=== PATIENT | female | born 1945 | race Caucasian/White ===

== ENCOUNTER 2024-11-11 11:15 | Inpatient (IN) | payer MEDICARE ==
[~2024-11-11] VITALS: Ht 167.6 cm; Wt 107.6 kg
[2024-11-11] VITALS (13 sets, daily range): BP systolic 114–150; BP diastolic 53–75; PULSE 87–96; RESP 14–24; TEMP 97.9–98.4; O2SAT 98–100
[~2024-11-11 11:15] MED LIST: AMLO10TA PO; ATOR10TA70 PO; CLOP75TA33 PO; HYDR25TA90 PO; METO-539 PO; Mucomyst PO; POTA10TA9 PO
[2024-11-11] MEDS ORDERED: OMEP40CA21 PO (11:37)
[2024-11-11] MEDS ORDERED: cefepime 2g/NS 100ml ADVANTAGE 100 ML IV STA (11:38)
[2024-11-11] MEDS: normal saline 1000ml 1,000 ML IV ONE ×3 (11:44)
[2024-11-11 11:57] LABS: BASOPHILS % (AUTO) 0.6 % (0-1); EOSINOPHILS % (AUTO) 0.1 % (0-6); LYMPHOCYTES # (AUTO) 0.7 X10'3 (1.1-4.8); LYMPHOCYTES % (AUTO) 15.5 % (21-51); MEAN PLATELET VOLUME 8.8 FL (7.4-10.4); MONOCYTES # (AUTO) 0.1 X10'3 (0-0.9); MONOCYTES % (AUTO) 1.2 % (2-12); NEUTROPHILS # (AUTO) 3.7 X10'3 (1.8-7.7); NEUTROPHILS % (AUTO) 82.6 % (42-75); PLATELET COUNT 251 X10'3 (140-440); WHITE BLOOD COUNT 4.5 X10'3 (4.5-11.0)
[2024-11-11 12:00] LABS: APTT 23 SECONDS (22-32); INR 1.1 INR; PROTHROMBIN TIME 11.2 SECONDS (9.0-12.0)
[2024-11-11 12:11] LABS: ALANINE AMINOTRANSFERASE 13 U/L (12-78); ALBUMIN 3.1 G/DL (3.4-5.0); ALBUMIN/GLOBULIN RATIO 0.6 (1.1-1.5); ALKALINE PHOSPHATASE 77 IU/L (46-116); ANION GAP 24 (8-16); ASPARTATE AMINO TRANSFERASE 32 U/L (10-37); BILIRUBIN,TOTAL 0.7 MG/DL (0.1-1.0); BLOOD UREA NITROGEN 44 MG/DL (7-18); CALCIUM 10.2 MG/DL (8.5-10.1); CHLORIDE 106 MMOL/L (99-107); CREATININE 4.42 MG/DL (0.40-0.90); GLUCOSE 134 MG/DL (70-104); MAGNESIUM 1.9 MG/DL (1.5-2.4); POTASSIUM 5.8 MMOL/L (3.5-5.1); SODIUM 138 MMOL/L (135-145); TOTAL PROTEIN 8.1 G/DL (6.4-8.2); eCRCL 10 ML/MIN; eGFR 10 ML/MIN
[2024-11-11 12:18] LABS: RED BLOOD COUNT 4.43 X10'6 (4.20-5.60)
[2024-11-11] MEDS: CEFEPIME 2gm in D5W 50mL 50 ML IV STA (12:18)
[2024-11-11 12:19] LABS: HEMATOCRIT 41.7 % (35.0-45.0); HEMOGLOBIN 13.9 g/dl (12.0-16.0); MEAN CORPUSCULAR HEMOGLOBIN 31.4 PG (27.0-31.0); MEAN CORPUSCULAR HGB CONC 33.3 g/dL (33.0-36.5); MEAN CORPUSCULAR VOLUME 94.2 FL (78-98); TOTAL CARBON DIOXIDE 8.3 MMOL/L (24-32)
[2024-11-11] MEDS: VANCOMYCIN 1.75GM/WATER FOR INJ (PEG) 350 ML IVPB IV STA (12:19)
[2024-11-11 12:20] LABS: RED CELL DISTRIBUTION WIDTH 14.3 % (11.5-14.5)
[2024-11-11 12:28] LABS: BILIRUBIN,URINE NEGATIVE (Neg); CLARITY,URINE TURBID (Clear); COLOR,URINE YELLOW (Yellow); GLUCOSE, URINE NEGATIVE (Neg); KETONES,URINE NEGATIVE (Neg); LEUKOCYTE ESTERASE ,URINE MODERATE (Neg); NITRITES, URINE NEGATIVE (Neg); OCCULT BLOOD,URINE LARGE (Neg); PROTEIN,URINE >=300 mg/dl (Neg); UROBILINOGEN,URINE 0.2 E.U/dL (0.2-1.0)
[2024-11-11 12:37] LABS: UA COLLECTION TYPE CLN CATCH MIDSTREAM
[2024-11-11 12:38] LABS: BACTERIA,URINE 2+ /HPF (Neg); MUCUS STRANDS NONE SEEN /LPF (Neg); RBC,URINE TNTC /HPF (0-2); SQUAMOUS EPITHELIAL CELL,UR NONE SEEN /LPF (FEW); WBC,URINE TNTC /HPF (0-4)
[2024-11-11] MEDS ORDERED: iohexol 300mg/ml 100ml inj. ONE (12:41)
--- NOTE | 2024-11-11 13:17 | RADIOLOGY REPORT ---
CHEST RADIOGRAPH Indication: fever Technique: Single frontal view of the chest was obtained Comparison: None FINDINGS: Lines and Tubes: None Lungs: No focal consolidation. Pleura: No effusion. No pneumothorax. Cardiomediastinal contours: Unremarkable Bones: No acute osseous abnormality. IMPRESSION: No acute cardiopulmonary disease.
--- NOTE | 2024-11-11 14:51 | ELECTROCARDIOGRAPH REPORT ---
[facility] Test Date: 2024-11-11 Test Time: 11:28:41 Pat Name: ARMAAN WILKS Department: EMERGENCY ROOM Room: [place] [address] Gender: F [employer]: : 1945 Requested By: DEPARTMENT EMERGENCY Order Number: [id number] Reading MD: Dr. Vinayak Mauro Measurements Intervals [place] Rate: 115 P: -52 NM: 151 QRS: -24 QRSD: 91 T: 230 QT: 292 QTc: 404 Interpretive Statements Sinus or ectopic atrial tachycardia Inferoposterior infarct, recent Lateral leads are also involved Electronically Signed On 11-14-2024 9:29:[address] Vinayak Mauro Please click the below link to view image of tracing.
--- NOTE | 2024-11-11 15:04 | RADIOLOGY REPORT ---
Exam: CT CT ABDOMEN PELVIS History: pain and fever Comparison Study: None available at time of dictation. TECHNIQUE: Multidetector CT of the abdomen was performed from lung bases to pubic symphysis. Imaging was performed without IV contrast. Axial, coronal and sagittal multiplanar reformats were obtained fr om the axial data set by the technologist. Radiation Dose Information: CT Dose: CTDI volume is 32.73 mGy. Dose-length product is 1827 mGy*cm FINDINGS: Evaluation of solid organs is limited due to lack of intravenous contrast use. Findings: Lung Bases: No acute or significant lung base finding. Normal heart size. No pleural or pericardial effusion. Liver: The liver is normal in size. No focal lesions. Gallbladder and Biliary Tree: Numerous small calcified gallstones Spleen: Unremarkable Pancreas: The pancreas is grossly normal in appearance. Adrenal Glands: Unremarkable Kidneys: 2.5 x 1.8 cm calcified renal calculus at the right ureteropelvic junction with numerous intr arenal calculi. Fluid in the right perirenal space the right kidney May have decompressed into the pe rirenal tissues with pyelo sinus or peripelvic extravasation. Mild right hydronephrosis. On the left there is a 3 x 2.3 cm calculus in the left renal pelvis . Mild left hydronephrosis and numerous left intrarenal calculi. Possible left ureteral calculus measuring 5-6 mm series 2, image 73. Gas noted in the collecting systems of both kidneys consistent with gas-forming infection. Bladder: Chavez catheter in the bladder with minimal residual urine air noted. Bowel: The stomach is grossly normal in appearance. Small bowel and colon are normal in caliber and d istribution. The appendix is not visualized; however, no secondary findings of acute appendicitis id entified. Ascites: Absent Lymphadenopathy: No mesenteric, retroperitoneal or periportal lymphadenopathy. Abdominal Wall and Mesentery: Unremarkable. Vasculature: The visualized abdominal aorta is normal in size and caliber. Evaluation of abdominal a nd pelvic vessels is limited due to lack of intravenous contrast. Pelvic Organs: Unremarkable Musculoskeletal: No aggressive focal bony lesions, acute fractures or dislocation. Soft tissues: Unremarkable IMPRESSION: 1. Bilateral renal calculi obstructing the ureteral pelvic junction measuring 2.5 x 1.8 cm on the rig ht 3 x 2.3 cm on the left. 2. Perirenal fluid on the right suggesting spontaneous pyelo sinus rupture and decompression of the r ight kidney. 3. Gas in the collecting system of both kidneys suggesting gas-forming bacteria. 4. Multiple bilateral intrarenal calculi. 5. On the left there is mild hydronephrosis and small amount of perirenal fluid 6. Possible mid left ureteral calculus measuring 5-6 mm. 7. Chavez catheter in the bladder. No calculi noted in the bladder. 8. Cholelithiasis Radiation optimization: All CT scans at this facility use at least one of these dose optimization shankar hniques: automated exposure control mA and/or kV adjustment per patient size (includes targeted exam s where dose is matched to clinical indication) or iterative reconstruction.
[2024-11-11] MEDS: acetaminophen 1,000mg/100ml IV 100 ML IV STA (15:07)
--- NOTE | 2024-11-11 16:38 | Physician Documentation ---
History of Present Illness ~ Chief Complaint: ALOC Stated Complaint: ALOC/JAW PAIN/VOMITING Time Seen by MD: 11:24 Primary Medical Doctor: None Mode of Arrival: Ambulatory HPI Patient was here for three days of generalized weakness. She was diffuse abdominal pain that she has been vomiting. She was a fever this morning. She was not sure how long the fever has been present. No cough or URI symptoms. Says that her urine is discolored but no dysuria. Medication Reconciliation Allergies: Coded Allergies: Penicillins (Verified Allergy, Unknown, 11/11/24) Scheduled Omeprazole (Prilosec), 1 CAP PO DAILY, (Reported) Discontinued Medications Amlodipine Besylate (Amlodipine Besylate), 1 TABLET PO DAILY, (Reported) Discontinued Reason: patient no longer taking Atorvastatin Calcium (Atorvastatin Calcium), 1 TABLET PO DAILY, (Reported) Discontinued Reason: patient no longer taking Clopidogrel Bisulfate (Clopidogrel), 75 MG PO DAILY, (Reported) Discontinued Reason: patient no longer taking Hydralazine Hcl* (Apresoline*), 50 MG PO BID, (Reported) Discontinued Reason: patient no longer taking Metoprolol Succinate* (Toprol Xl*), 0.5 TAB PO DAILY, (Reported) Discontinued Reason: patient no longer taking Potassium Citrate (Urocit-K), 1,080 MG PO DAILY, (Reported) Discontinued Reason: patient no longer taking [Mucomyst], Unknown Dose PO BID, (Reported) Discontinued Reason: patient no longer taking Past Medical History Past Surgical History: appendectomy, hysterectomy Smoking Status: Former smoker Alcohol Use: None Physical Exam Vital Signs: Temperature: 100.7, Source: Core, Heart Rate: 101, Respiratory Rate: 16, BP: 135/74, Pulse Oximetry: 97, Weight: 100.000 Oxygen Flow Rate: 0 Physical Exam General: Awake and Alert, ill-appearing HEENT: Conjunctiva pink, Sclera clear, Mucus Membranes dry Neck: Supple without masses and tenderness. Resp: Unlabored. Lungs clear to auscultation bilaterally. Heart: Tachycardic but regular Abdomen: Mild diffuse tenderness without rebound or guarding or peritoneal signs Extremities: No cyanosis,clubbing or edema. Skin: Warm and Dry. Neuro: GCS 15; no focal deficits Progress Results/Orders Results/Orders Orders - ELSI BAY MD Chest,Single View (11/11/24 11:38) Ct Abdomen Pelvis (11/11/24 13:39) * (A) Chavez- Protocol * Q12H@07,19 (11/11/24 11:55) Mixed Venous (11/11/24 ) Cult Urine + [place] Ct (11/11/24 12:38) Culture Blood (11/11/24 16:19) Lacticsepsis (11/11/24 16:19) BMP (11/11/24 16:22) Non Formulary (11/12/24 03:00) Vancomycin/Ns 1 Gm Add-[place] (Vancomyc (11/12/24 08:00) Completed Orders - ELIS BAY MD Cbc/Diff (11/11/24 11:38) CMP (11/11/24 11:38) MG (11/11/24 11:38) TSH (11/11/24 11:38) PTT (11/11/24 11:38) Pt Inr (11/11/24 11:38) Chest,Single View (11/11/24 11:38) Ct Abdomen Pelvis (11/11/24 13:39) Normal Saline 1000ml (Sodium Chloride 10 (11/11/24 11:40) Cefepime 2g/Ns 100ml Advantage (Maxipime (11/11/24 11:38) Vancomycin 1,500mg Inj. (Vancomycin 1,50 (11/11/24 20:00) Normal Saline 1000ml (Sodium Chloride 10 (11/11/24 11:40) Normal Saline 1000ml (Sodium Chloride 10 (11/11/24 11:40) Cefepime 2gm In D5w 50ml (Cefepime-D5w 2 (11/11/24 11:41) Vancomycin*Pharmacy To Dose* (Vancomycin (11/11/24 11:50) Vancomycin/H2o 1.75g/350ml Pb (Vancomyci (11/11/24 11:48) Ua W/Microscopic, Cult If Ind (11/11/24 12:16) Iohexol 300mg/Ml 100ml Inj. (Omnipaque-3 (11/11/24 12:41) Acetaminophen 1,000mg/100ml Iv (Ofirmev (11/11/24 14:55) Medications Received in ER Medications (Trade) Dose Ordered Sig/Marely Route PRN Reason Start Time Stop Time Status Last Admin Dose Admin Sodium Chloride 1,000 ml @ 1,000 mls/hr ONCE ONCE IV 11/11/24 11:40 11/11/24 12:39 DC 11/11/24 11:44 1,000 MLS/HR Sodium Chloride 1,000 ml @ 1,000 mls/hr ONCE ONCE IV 11/11/24 11:40 11/11/24 12:39 DC 11/11/24 11:44 1,000 MLS/HR Sodium Chloride 1,000 ml @ 1,000 mls/hr ONCE ONCE IV 11/11/24 11:40 11/11/24 12:39 DC 11/11/24 11:44 1,000 MLS/HR Cefepime/Dextrose 50 ml @ 100 mls/hr ONCE STAT IV 11/11/24 11:41 11/11/24 12:07 DC 11/11/24 12:18 100 MLS/HR Vancomycin HCl 350 ml @ 117 mls/hr ONCE STAT IV 11/11/24 11:48 11/11/24 14:47 DC 11/11/24 12:19 117 MLS/HR Acetaminophen 100 ml @ 400 mls/hr ONCE STAT IV 11/11/24 14:55 11/11/24 15:09 DC 11/11/24 15:07 400 MLS/HR Vital Signs 11/11/24 11/11/24 11/11/24 11/11/24 11:21 12:21 12:27 13:59 Temp 100.6 100.6 Pulse 120 105 106 98 Resp 21 22 18 16 B/P (MAP) 102/65 132/60 (84) 132/60 (84) 135/69 (91) Pulse Ox 96 98 98 97 O2 Flow Rate 0 0 0 0 11/11/24 11/11/24 15:08 15:59 Temp 101.1 100.7 Pulse 101 Resp 16 B/P (MAP) 135/74 (94) Pulse Ox 97 O2 Flow Rate 0 Laboratory Tests Test 11/11/24 11:22 11/11/24 11:34 11/11/24 11:35 11/11/24 12:16 Glucometer 142 H White Blood Count 4.5 Red Blood Count 4.43 Hemoglobin 13.9 Hematocrit 41.7 Mean Corpuscular Volume 94.2 Mean Corpuscular Hemoglobin 31.4 H Mean Corpuscular Hemoglobin Concent 33.3 Red Cell Distribution Width 14.3 Platelet Count 251 Mean Platelet Volume 8.8 Neutrophils (%) (Auto) 82.6 H Lymphocytes (%) (Auto) 15.5 L Monocytes (%) (Auto) 1.2 L Eosinophils (%) (Auto) 0.1 Basophils (%) (Auto) 0.6 Neutrophils # (Auto) 3.7 Lymphocytes # (Auto) 0.7 L Monocytes # (Auto) 0.1 Eosinophils # (Auto) 0.0 Basophils # (Auto) 0.0 CBC Comment Prothrombin Time 11.2 INR International Normalized Ratio 1.1 Activated Partial Thromboplast Time 23 Coagulation Comments Sodium Level 138 Potassium Level 5.8 H Chloride Level 106 Carbon Dioxide Level 8.3 *L Anion Gap 24 H Blood Urea Nitrogen 44 H Creatinine 4.42 H Estimated GFR/1.73 m2 10 BUN/Creatinine Ratio 10.0 Glucose Level 134 H Calcium Level 10.2 H Magnesium Level 1.9 Total Bilirubin 0.7 Aspartate Amino Transf (AST/SGOT) 32 Alanine Aminotransferase (ALT/SGPT) 13 Alkaline Phosphatase 77 Total Protein 8.1 Albumin 3.1 L Globulin 5.0 H Albumin/Globulin Ratio 0.6 L Thyroid Stimulating Hormone (TSH) 1.80 Chemistry Comments Urine Specimen Description Cln catch midstream Urine Color Yellow Urine Clarity Turbid Urine pH 6.0 Urine Specific [place] 1.020 Urine Protein >=300 H Urine Glucose (UA) Negative Urine Ketones Negative Urine Occult Blood Large H Urine Nitrite Negative Urine Bilirubin Negative Urine Urobilinogen 0.2 Urine Leukocyte Esterase Moderate H Urine RBC Tntc Urine WBC Tntc H Urine Squamous Epithelial Cells None seen Urine Transitional Epithelial Cells Urine Bacteria 2+ Urine Mucus None seen Urine Culture Indicated Indicated Volume Urine Centrifuged 10 ml Urine Comment Microbiology Date/Time Source Procedure Growth Status 11/11/24 12:38 Urine Clean Catch Midstream Urine Culture - Preliminary Culture received. Resulted Medical Decision Making Findings Patient was here for generalized weakness. On arrival she presents sepsis. I immediately ordered a septic workup including blood cultures. Cefepime vancomycin and 30 cc/kilos normal saline. He will he was given pain and nausea medicine. Chavez was placed in she had purulent urine. Her CMP shows acute kidney injury potassium was 5.8 he was told this was likely hemolysis so I ordered a repeat basic metabolic panel after her fluids were administered. CT shows bilateral obstructing stones in the proximal ureters. She actually has signs of calyceal rupture on the right. There is gas in the ureters concerning for gas-forming organism she has been covered with cefepime and vancomycin. Notified Urology immediately after receiving the results of the CT scan they are going to make arrangements for her to go to the OR emergently for stent placement. He was sent out paged to admit to the hospitalist. Departure Impression: Primary Impression: Sepsis Qualified Codes: A41.9 - Sepsis, unspecified organism Additional Impressions: Pyelonephritis Kidney stone Hydronephrosis with urinary obstruction due to renal calculus MILVIA (acute kidney injury) Hyperkalemia Condition: Stable Referrals: NO PRIMARY CARE PROVIDER (PCP) Education Educated: Patient Educated regarding: diagnosis Critical Care Note Critical Care Note This patient had a high probability of sudden, clinically significant deterioration, which required the highest level of physician preparedness to intervene urgently. The patient required and I delivered critical care from time of arrival until disposition. Critical care time was separate from procedural such as intubation or central line placement or cardioversion. Critical care included initial assessment of the seriously ill patient, initiation of diagnostic studies and treatment, management of life-threatening and/or end organ supporting interventions that required frequent physician assessment, and phone consultation with other providers as outlined in the progress notes. Spent with family or surrogates is included only if the patient was not capable of providing the necessary information or participating in medical decision-making. Total critical care time: 70 minutes Signature Scribe Signature: no scribe Attestation: no shravanibe ELIS BAY MD Nov 11, 2024 16:38
[2024-11-11] MEDS: ringers solution, lacted 1,000 ML IV SCH ×3 (16:45→17:04)
[2024-11-11] MEDS ORDERED: magnesium hydroxide 30ml (MOM) UD suspension PO PRN (16:50)
[2024-11-11] MEDS ORDERED: mag hydrox/Alum hydrox/simeth 30ml oral suspension PO PRN (16:50)
[2024-11-11] MEDS ORDERED: potassium Cl 20 mEq SR tablet PO PRN ×2 (16:50)
[2024-11-11] MEDS ORDERED: magnesium sulf-water 2g/50mL 50 ML IV PRN (16:50)
[2024-11-11] MEDS ORDERED: potassium Cl 40MEQ/1/2NS 520ml 520 ML IV PRN (16:50)
[2024-11-11] MEDS ORDERED: magnesium sulf-water 4G/100mL 100 ML IV PRN (16:50)
[2024-11-11] MEDS ORDERED: acetaminophen 325mg tablet PO PRN (16:50)
[2024-11-11 16:59] LABS: ALBUMIN 2.5 G/DL (3.4-5.0); ANION GAP 18 (8-16); BLOOD UREA NITROGEN 43 MG/DL (7-18); BUN/CREATININE RATIO 10.6 (10.0-20.0); CALCIUM 8.9 MG/DL (8.5-10.1); CHLORIDE 110 MMOL/L (99-107); CREATININE 4.07 MG/DL (0.40-0.90); GLUCOSE 90 MG/DL (70-104); POTASSIUM 3.9 MMOL/L (3.5-5.1); SODIUM 142 MMOL/L (135-145); eCRCL 11 ML/MIN; eGFR 11 ML/MIN
[2024-11-11 17:03] LABS: TOTAL CARBON DIOXIDE 14.4 MMOL/L (24-32)
[2024-11-11] MEDS ORDERED: iohexol 300 MG/1 ML 50ml polymer ONE (17:17)
--- NOTE | 2024-11-11 17:23 | HISTORY AND PHYSICAL ---
History & Physical Providers to ~ History of Present Illness Reason for Admit\Complaint: sepsis, pyelonephritis, nephrolithiasis, MILVIA History of Present Illness Neela Talbot is a 79-year-old female with a past medical history significant for nephrolithiasis and subsequent pyelonephritis, s/p ureteral stent in 2013, mi s/p cardiac stent in 2014, trigeminal neuralgia who was brought to the ED with chief complaints of acute onset generalized weakness, decreased appetite, nausea, and vomiting x 1 day. Patient denies CVA, cardiac arrhythmia, DVT/PE, or GIB. Patient denies pain with urination, urinary frequency/urgency, chest pain, palpitations, shortness of breath, abdominal pain, diarrhea. Patient was examined in the presence of her daughter. Per daughter, patient developed left- sided facial droop 4 days ago which has happened to patient in the past but developed again. Initial diagnostic findings were notable for elevated lactic acid, metabolic acidosis, abnormal renal function, urinalysis indicating urinary tract infection, CT indicating nephrolithiasis in right and left ureter and pyelonephritis. On-call urologist Dr. Vee was consulted. Patient is to be taken to OR for bilateral ureteral stent placement. Allergies: Coded Allergies: Penicillins (Verified Allergy, Unknown, 11/12/24) TOLERATED CEFEPIME 10/2024 Home Medications Home Medications Active Reported Prilosec (Omeprazole) 40 Mg Capsule 1 Cap PO DAILY 30 Days Past Medical History Past Medical History Pyelonephritis Nephrolithiasis Trigeminal neuralgia Past Surgical History Surgical History Comment s/p ureteral stent [place] s/p cardiac stent Past Social History Social History Comment Alcohol: Denies Tobacco: Denies Illicit drug use: Denies Living situation: Lives at home with family ROS ROS Other than positives in HPI, all 14 review of systems are negative Exam Vitals: Vital Signs Date Time Temp Pulse Resp B/P (MAP) Pulse Ox O2 Delivery O2 Flow Rate FiO2 11/11/24 16:53 100.1 99 16 137/70 (92) 97 0 General: Generalized weakness, A&Ox 3, NAD HEENT: Normocephalic, PERRLA Neck: Supple, trachea midline, no JVD Chest: Clear to auscultation bilaterally Cardiovascular: RRR, S1&S2 Abdomen: Soft, tender to palpation in left and right lower quadrant abdomen; negative rebound tenderness Extremities: No cyanosis/clubbing/or edema Central Nervous System: Left-sided facial droop Musculoskeletal: No paraspinal muscle tenderness, no muscle spasm Skin: Warm and intact Diagnostic Data Last Recorded Lab Results: 11/11/24 1135 11/11/24 1641 Diagnostic Data: Laboratory Tests Test 11/11/24 11:35 Prothrombin Time 11.2 SECONDS (9.0-12.0) INR International Normalized Ratio 1.1 INR Activated Partial Thromboplast Time 23 SECONDS (22-32) Coagulation Comments Additional Plan # Acute pyelonephritis 2/2 hydronephrosis 2/2 nephrolithiasis # Severe sepsis 2/2 pyelonephritis # Metabolic acidosis, AGMA # Lactic acidosis # Postrenal MILVIA 2/2 nephrolithiasis # UTI # Hyperkalemia 2/2 MILVIA # NSTEMI -CT positive b/l nephrolithiasis, hydronephrosis, pyelonephritis, bicarb 8.3, pH 7.2, lactic acid 10-2.5, AG 24, sinus tachy, fever, procal 63, UA UTI +, Cr 4.42 GFR 10, with BUN/Cr 10 likely prolonged damage, no known hx CKD -3L bolus fluid resuscitation given & continuous LR; vancomycin, cefepime, prn acetaminophen, prn metoprolol for HR>120 given severe sepsis -repeat lactic acid, follow blood/urine culture, urine lytes -OR for b/l ureteral stent by Dr. Vee today; consulted ID Dr. Yeager, suzie w/treatment plan # NSTEMI # [place] s/p cardiac stent (2013, Dr. Friend) -has not been taking statin, only on aspirin at home -follow troponins, Lexiscan based on trop trend, heparin as indicated # Hx Trigeminal neuralgia # CVA - to rule out -new onset left-sided facial droop and jaw pain x 4days -CT head negative, start aspirin, statin, follow MRI, Teleneurology consult DVT/VTE prophylaxis: heparin Code status: Full code I spent a total of 35 minutes discussing Advanced Care Planning measures with the patient. Advance care planning: Discussed with patient the importance of advance care planning in case of emergent situation. We discussed various resuscitative measures/ ACP with the patient at the time of admission. Patient voiced understanding and patient has decided on a full code status. Date of Service: Nov 11, 2024 Billing Provider: MARIE SUH Common Visit Codes: 31213-[id number] INP/OBS CARE (HIGH) Secondary Visit Codes: 17181-[id number] CARE PLAN 30 MINUTES MARIE SUH Nov 11, 2024 17:22
--- NOTE | 2024-11-11 17:28 | CONSULTATION REPORT ---
Consult Providers to CC ~ History of Present Illness Reason for Admit\Complaint: Abdominal pain History of Present Illness Patient presented to the emergency department with significant fevers and generally not feeling well. She had a CT scan which showed bilateral obstructing ureteral stone. She had urine consistent with infection, elevated creatinine, and significant stone burden in atrophic kidneys bilaterally. Patient is also tachycardic. Patient has a history of kidney stones and previously has had stones treated, but it has been close to ten years. Allergies: Coded Allergies: Penicillins (Verified Allergy, Unknown, 11/11/24) Home Medications Home Medications Active Reported Prilosec (Omeprazole) 40 Mg Capsule 1 Cap PO DAILY 30 Days ROS ROS A pertinent 10 point review of systems was performed and was normal except as otherwise noted. Please also see HPI for added review of systems. Exam Vitals: Vital Signs Date Time Temp Pulse Resp B/P (MAP) Pulse Ox O2 Delivery O2 Flow Rate FiO2 11/11/24 16:53 100.1 99 16 137/70 (92) 97 0 General: General: Awake and Alert, no acute distress. Febrile HEENT: HEENT: Conjunctiva pink, Sclera clear, Mucus Membranes moist. Neck: Neck: Supple without masses and tenderness. Chest: Resp: Unlabored. Cardiovascular: Heart: Tachycardic Abdomen: Abdomen: Soft and non tender no organomegaly Extremities: Extremities: No cyanosis,clubbing or edema. Skin: Skin: Warm and Dry. Diagnostic Data Last Recorded Lab Results: 11/11/24 1135 11/11/24 1641 Diagnostic Data: Laboratory Tests Test 11/11/24 11:35 Prothrombin Time 11.2 SECONDS (9.0-12.0) INR International Normalized Ratio 1.1 INR Activated Partial Thromboplast Time 23 SECONDS (22-32) Coagulation Comments Problems: (1) Hydronephrosis with urinary obstruction due to renal calculus Status: Chronic Assessment & Plan: Bilateral obstructing kidney stones in the setting of infection. She also has significant gas in the collecting system on both sides. I would recommend emergent decompression with bilateral stent placement. I discussed this in detail with the patient. We discussed cystoscopy, bilateral retrograde pyelograms, bilateral ureteral stent placement. We discussed risks of the procedure including infection, bleeding, damage to surrounding tissues, need for further interventions. We discussed benefits including allowing for decompression of the kidneys, clearance of infection. We discussed alternatives including observation and supportive care, as well as nephrostomy tubes. After discussion patient consented to move forward with the procedure. - OR today for cystoscopy, bilateral retrograde pyelograms, bilateral ureteral stent placement MARIO DOE MD Nov 11, 2024 17:28
[2024-11-11] MEDS ORDERED: acetaminophen 1,000mg/100ml IV 100 ML IV PRN ×2 (17:30→17:55)
[2024-11-11] MEDS ORDERED: metoprolol tartrate 1mg/ml inj IV PRN (17:40)
[2024-11-11] MEDS ORDERED: HYDROmorphone/PF 0.2 MG/ML SYRINGE IV PRN ×2 (17:55)
[2024-11-11] MEDS ORDERED: labetalol 20mg/4ml (5mg/ml) syringe IV PRN (17:55)
[2024-11-11] MEDS ORDERED: morphine 2 MG/ML inj. syringe IV PRN (17:55)
[2024-11-11] MEDS ORDERED: ringers solution, lacted 1,000 ML IV SCH (17:55)
[2024-11-11] MEDS ORDERED: ondansetron/PF 4mg/2ml inj IV PRN (17:55)
[2024-11-11] MEDS ORDERED: morphine 4 MG/ML inj SYRINge IV PRN (17:55)
[2024-11-11] MEDS ORDERED: sevoflurane 250ml liquid IH ONE (17:56)
--- NOTE | 2024-11-11 17:58 | RADIOLOGY REPORT ---
EXAM: CT CT HEAD INDICATION: facial droop TECHNIQUE: CT of the head without intravenous contrast. Radiation Dose Information: CT Dose: CTDI volume is 69.89 mGy. Dose-length product is 1178.19 mGy*cm The dose indicators for CT are the volume Computed Tomography (CT) Dose Index (CTDIvol) and the Dose Length Product (DLP), and are measured in units of mGy and mGy-cm, respectively. These indicators are not patient dose, but values generated from the CT scanner acquisition factors. The report includes radiation exposure data for exposures received during this examination. COMPARISON: None FINDINGS: There is no evidence of acute intracranial hemorrhage, extra-axial collection, mass effect, midline s hift, herniation or hydrocephalus. The ventricles, sulci and cisterns are age appropriate. The barone-white differentiation is intact. Patchy periventricular and subcortical white matter hypoattenuation is nonspecific but may be related to small vessel ischemic disease. The visualized paranasal sinuses and mastoid air cells are clear. The surrounding soft tissues and osseous structures are unremarkable. IMPRESSION: 1. No acute intracranial abnormality.. 2. No acute intracranial hemorrhage. 3. No CT findings of territorial ischemia
[2024-11-11] MEDS ORDERED: fentaNYL/PF 50MCG/1 ML 2ML syringe ONE (18:03)
[2024-11-11] MEDS ORDERED: midazolam 1 mg/ML 2ml injection ONE (18:03)
[2024-11-11] MEDS: iohexol 300 MG/1 ML 50ml polymer IV ONE (18:10)
[2024-11-11] MEDS ORDERED: dexamethasone sod phosphate 4mg/ml inj. ONE (18:22)
[2024-11-11] MEDS ORDERED: propofol inj 20 ML IV ONE (18:22)
[2024-11-11] MEDS ORDERED: phenylephrine 10mg/ml inj. ONE (18:26)
[2024-11-11] MEDS ORDERED: ondansetron/PF 4mg/2ml inj ONE (18:27)
--- NOTE | 2024-11-11 18:51 | OPERATIVE REPORT ---
Operative Report Providers to ~ Date of Procedure: Nov 11, 2024 Pre-Operative Diagnosis: Acute pyelonephritis, nephrolithiasis Post-Operative Diagnosis SAME as PRE-Op Procedure Performed Cystoscopy, bilateral retrograde pyelograms, bilateral ureteral stent placement. Surgeon: MD Nanda Freezer Machine Operator None Anesthesiologist: Ben Moore Type of Anesthesia: General Findings: Significant bilateral stone burden with very large hydronephrosis on both sides. Far widened calyces with what can only be from thinned paranchyma. Complications None Prosthetics\Implants used: Bilateral 6 x 24 double J ureteral stents Estimated Blood Loss: Minimal Specimen Removed: None Description of Procedure: Patient was brought to the operating room, given a general anesthetic, and placed in dorsal lithotomy position. She was prepped and draped in the normal sterile fashion. A timeout was performed. A 22 azerbaijani cystoscope was inserted via urethra. A 5 azerbaijani open ended catheter was passed into the right ureter. Retrograde pyelogram was then performed. This showed significant stone burden and significant hydronephrosis which was chronic in nature based on this retrograde. I passed a wire up into the kidney and passed a 6 x 24 double J ureteral stent over the wire into the right kidney. The wire was removed and good coil was seen on the proximal portion on spot fluoroscopy. Good coil was seen on the distal portion on direct visualization. There was significant drainage of pus from the right kidney at this point. I next turned my attention to the left ureter. A 5 azerbaijani open ended catheter was passed into the ureter and a retrograde pyelogram was performed. There was a very large stone in the UPJ. Significant hydronephrosis came from behind the stone. Chronic appearing in nature. I was able to pass a wire into the kidney but it was significantly difficult to do so. Once the wire was maneuvered past the stone I was able to pass a 6 x 24 double J ureteral stent over the wire into the left kidney. The wire was removed and there was good coil on the proximal portion on spot imaging and good coil on direct visualization of the distal end. There was again copious drainage of pus filled urine. After this a stanley catheter was placed for maximal drainage. This murillo the end of the procedure. MARIO DOE MD Nov 11, 2024 18:50
[2024-11-11] MEDS ORDERED: VANCOMYCIN 1,500MG inj. 1,500 MG in normal saline 500ml IV soln 300 ML IV SCH (20:00)
[2024-11-11] MEDS: K and/or MAG REPLACEMENT MC SCH (20:00)
[2024-11-11] MEDS: atorvastatin 20mg tablet PO SCH (20:43)
[2024-11-11] MEDS: heparin, porcine 5000 units/ml vial SQ SCH (20:43)
[2024-11-11] MEDS: docusate sod 100mg capsule PO SCH (20:43)
[2024-11-11] MEDS: CEFEPIME 2gm in D5W 50mL 50 ML IV SCH (20:44)
[2024-11-11] MEDS: morphine 2 MG/ML inj. syringe IV ONE (22:27)
[2024-11-11] MEDS: aspirin 81mg, enteric-coated 1 TAB TABLET.DR PO ONE (23:15)
[2024-11-12] VITALS (16 sets, daily range): BP systolic 120–172; BP diastolic 51–91; PULSE 79–107; RESP 16–20; TEMP 97.5–98.6; O2SAT 93–99
[2024-11-12] MEDS: VANCOMYCIN LEVEL IV SCH (03:00)
[2024-11-12] MEDS: heparin, porcine 5000 units/ml vial SQ SCH (04:29)
[2024-11-12 06:56] LABS: BASOPHILS % (AUTO) 0 % (0-1); EOSINOPHILS % (AUTO) 0 % (0-6); HEMATOCRIT 35.2 % (35.0-45.0); HEMOGLOBIN 11.1 g/dl (12.0-16.0); LYMPHOCYTES # (AUTO) 1.3 X10'3 (1.1-4.8); LYMPHOCYTES % (AUTO) 4.4 % (21-51); MEAN CORPUSCULAR HEMOGLOBIN 30.8 PG (27.0-31.0); MEAN CORPUSCULAR HGB CONC 31.7 g/dL (33.0-36.5); MEAN CORPUSCULAR VOLUME 97.4 FL (78-98); MEAN PLATELET VOLUME 9.4 FL (7.4-10.4); MONOCYTES # (AUTO) 1.3 X10'3 (0-0.9); MONOCYTES % (AUTO) 4.5 % (2-12); NEUTROPHILS # (AUTO) 26.2 X10'3 (1.8-7.7); NEUTROPHILS % (AUTO) 91.1 % (42-75); PLATELET COUNT 167 X10'3 (140-440); RED BLOOD COUNT 3.61 X10'6 (4.20-5.60); RED CELL DISTRIBUTION WIDTH 15.5 % (11.5-14.5)
[2024-11-12 07:03] LABS: WHITE BLOOD COUNT 28.7 X10'3 (4.5-11.0)
[2024-11-12] MEDS ORDERED: aminophylline 500mg/20ml vial IV PRN (07:55)
[2024-11-12] MEDS ORDERED: nitroGLYCERIN 0.4mg SUBLingual tab SL PRN ×2 (07:55→14:15)
[2024-11-12] MEDS ORDERED: metoprolol tartrate 1mg/ml inj IV PRN (07:55)
[2024-11-12 07:56] LABS: ALANINE AMINOTRANSFERASE 15 U/L (12-78); ALBUMIN 2.5 G/DL (3.4-5.0); ALBUMIN/GLOBULIN RATIO 0.6 (1.1-1.5); ALKALINE PHOSPHATASE 49 IU/L (46-116); ANION GAP 15 (8-16); ASPARTATE AMINO TRANSFERASE 26 U/L (10-37); BILIRUBIN,TOTAL 0.5 MG/DL (0.1-1.0); BLOOD UREA NITROGEN 48 MG/DL (7-18); BUN/CREATININE RATIO 13.2 (10.0-20.0); CALCIUM 9.3 MG/DL (8.5-10.1); CHLORIDE 110 MMOL/L (99-107); CHOLESTEROL 151 MG/DL (0-200); CREATININE 3.64 MG/DL (0.40-0.90); GLUCOSE 110 MG/DL (70-104); LDL CHOLESTEROL 58 MG/DL (50-100); MAGNESIUM 1.7 MG/DL (1.5-2.4); POTASSIUM 5.8 MMOL/L (3.5-5.1); SODIUM 140 MMOL/L (135-145); TOTAL CARBON DIOXIDE 15.1 MMOL/L (24-32); TOTAL PROTEIN 6.8 G/DL (6.4-8.2); TRIGLYCERIDES 233 MG/DL (20-135); VANCOMYCIN,RANDOM 19.2 ug/mL (20.0-30.0); eCRCL 12 ML/MIN; eGFR 12 ML/MIN
[2024-11-12 07:59] LABS: HEMOGLOBIN A1C 5.7 % (4.5-6.2)
[2024-11-12] MEDS ORDERED: vancomycin/NS 1 GM ADD-VANTAGE 250 ML X 1 DOSE IV PRN (08:00)
[2024-11-12 08:15] LABS: TOTAL CELLS COUNTED 100
[2024-11-12 08:16] LABS: PLATELET ESTIMATE NORMAL
[2024-11-12 08:17] LABS: CHOL/HDL RATIO 3.4 (0.00-4.99); HDL CHOLESTEROL 45 MG/DL (35-60)
[2024-11-12] MEDS: aspirin 81mg, enteric-coated 1 TAB TABLET.DR PO SCH (09:44)
[2024-11-12] MEDS: gabapentin 100mg capsule PO SCH (09:53)
--- NOTE | 2024-11-12 10:31 | PROGRESS NOTE ---
Daily Progress Note Providers to CC ~ Antibiotic Timeout Antibiotic Ordered?: Yes Subjective No acute events overnight. Patient examined at bedside. No new complaints, not in acute distress. Patient denies chest pain, sob, palpitations, abdominal pain, n/v/d. Labs notable for uptrending troponins overnight, uptrending procal, normalized lactic acid, white count at 28, improving renal function but severely compromise. Uptrending trops, consulted Dr. Friend, Lexiscan positive, heparin drip started, prn nitroglycerin, continued on high-intensity statin, aspirin, metoprolol, prn nitroglycerin. Continued on empirical antibiotics and LR. Consulted food and beverage server Dr. Funk. Objective Vital Signs Date Time Temp Pulse Resp B/P (MAP) Pulse Ox O2 Delivery O2 Flow Rate FiO2 11/12/24 06:55 Room Air 99 11/12/24 06:55 99 0 11/12/24 06:00 86 11/12/24 04:00 98.2 16 127/51 (76) Result Diagram: 11/12/24 0551 11/12/24 0551 Physical Exam General: Generalized weakness, A&Ox 3, NAD HEENT: Normocephalic, PERRLA Neck: Supple, trachea midline, no JVD Chest: Clear to auscultation bilaterally Cardiovascular: RRR, S1&S2 Abdomen: Soft, tender to palpation in left and right lower quadrant abdomen; negative rebound tenderness Extremities: No cyanosis/clubbing/or edema Central Nervous System: Left-sided facial droop Musculoskeletal: No paraspinal muscle tenderness, no muscle spasm Skin: Warm and intact Coagulation Studies Laboratory Tests Test 11/11/24 11:35 Prothrombin Time 11.2 SECONDS (9.0-12.0) INR International Normalized Ratio 1.1 INR Activated Partial Thromboplast Time 23 SECONDS (22-32) Coagulation Comments Problem\Assessment\Plan # Acute pyelonephritis 2/2 hydronephrosis 2/2 nephrolithiasis # Severe sepsis 2/2 pyelonephritis # Metabolic acidosis, AGMA # Lactic acidosis # Postrenal MILVIA 2/2 nephrolithiasis # UTI # Hyperkalemia 2/2 MILVIA # NSTEMI -CT positive b/l nephrolithiasis, hydronephrosis, pyelonephritis, bicarb 8.3, pH 7.2, lactic acid 10-2.5, AG 24, sinus tachy, fever, procal 63, UA UTI +, Cr 4.42 GFR 10, with BUN/Cr 10 likely prolonged damage, no known hx CKD -3L bolus fluid resuscitation given & continuous LR; vancomycin, cefepime, prn acetaminophen, prn metoprolol for HR>120 given severe sepsis -repeat lactic acid, follow blood/urine culture, urine lytes -OR for b/l ureteral stent by Dr. Vee today; consulted ID Dr. Yeager, agrees w/treatment plan -11/12: troponins overnight uptrending, renal function improving but severely compromised; consulted on-call Dr. Sparkle Patiño as her insurance counselor not available in town today. Consulted food and beverage server Dr. Funk. # NSTEMI # [place] s/p cardiac stent (2013, Dr. Friend) -has not been taking statin, only on aspirin at home -follow troponins, Lexiscan based on trop trend, heparin as indicated -11/12: uptrending trops, consulted Dr. Friend, Lexiscan positive, heparin drip started, prn nitroglycerin, continued on high-intensity statin, aspirin, metoprolol # Hx Trigeminal neuralgia # CVA - cannot exclude -new onset left-sided facial droop x 4days -CT head negative, start aspirin, statin, follow MRI, Teleneurology consult -11/12: MRI head/neck cannot be done for next 14 days due to b/l ureteral stent placement, will start cardiac heparin drip WO bolus DVT/VTE prophylaxis: heparin Code status: Full code Date of Service: Nov 12, 2024 Billing Provider: MARIE SUH Common Visit Codes: [id number] INP/OBS CARE(HIGH) MARIE SUH Nov 12, 2024 10:31
--- NOTE | 2024-11-12 11:11 | CONSULTATION REPORT - RESIDENT ---
Consult Providers to CC Resident Creating Document: LIZZ MARCUMAMALIA History of Present Illness Reason for Admit\Complaint: Elevated troponins History of Present Illness A 79-year-old female with past medical history of CAD s/p stenting in 2013 was admitted into the hospital for the management of sepsis secondary to pyelonephritis and she underwent cystoscopy with bilateral ureteral stent placement by Dr. Vee yesterday. Cardiology consulted because of history of jaw pain with mildly elevated and up trending troponins. The patient started to have ?trigeminal neuralgia since the past one week and she reports that the jaw pain is secondary to neuralgia. She denies chest pain, pressure, palpitations, shortness of breath. She uses a walker to ambulate and walks around in her house. Reports no exertional dyspnea. She initially followed up with Dr. Gayle after stent placement but lost follow up. She also does not have a primary care physician currently. Home medications are notable for aspirin. Allergies: Coded Allergies: Penicillins (Verified Allergy, Unknown, 11/12/24) TOLERATED CEFEPIME 10/2024 Home Medications Home Medications Active Reported Prilosec (Omeprazole) 40 Mg Capsule 1 Cap PO DAILY 30 Days Past Medical History Past Medical History CAD s/p stenting Pyelonephritis, nephrolithiasis s/p bilateral ureteral stenting Past Surgical History Surgical History Comment Bilateral ureteral stent placement Past Social History Social History Comment Denies alcohol, smoking, illicit drug abuse. Reported smoking and drinking when she was very young. Does not have a PCP. Lives at home. ROS ROS Reviewed and negative except for pertinent positives in HPI. Exam Vitals: Vital Signs Date Time Temp Pulse Resp B/P (MAP) Pulse Ox O2 Delivery O2 Flow Rate FiO2 11/12/24 06:55 Room Air 99 11/12/24 06:55 99 0 11/12/24 06:00 86 11/12/24 04:00 98.2 16 127/51 (76) General: Elderly female, alert and oriented x4, not in acute distress Head: Normocephalic with an atraumatic Eyes: Pupils- 3mm, reacting to light, conjunctiva- anicteric Nose and throat: No polyps, septum- normal, no mucosal ulcers Neck: Supple, no lymphadenopathy, no carotid bruit Respiratory: No use of accessory muscles of respiration, Bilateral normal vesiscular breath sounds heard. No wheeze, rhochi or creps Cardiac: S1-S2 heard, rhythm regular, no gallop/murmur Abdomen: non distended, no tenderness, no organomegaly, bowel sounds - heard Extremities: no clubbing, no pedal edema, no deformities, peripheral pulses - 2+ Skin: warm and dry, no rash, no purpura Neuro: No focal deficit, gross cranial nerve exam - normal Diagnostic Data Last Recorded Lab Results: 11/12/24 0551 11/12/24 0551 Diagnostic Data: Laboratory Tests Test 11/11/24 11:35 Prothrombin Time 11.2 SECONDS (9.0-12.0) INR International Normalized Ratio 1.1 INR Activated Partial Thromboplast Time 23 SECONDS (22-32) Coagulation Comments Additional Plan Elevated troponins likely secondary to type 2 [place] The patient does not have angina, palpitations or shortness of breath. The jaw pain is likely secondary to trigeminal neuralgia. Further workup for trigeminal neuralgia recommended. MRI pending. Cardiac stress test showed small reversible defect in the distal anterolateral wall and large fixed defect in the basal to mid inferolateral wall. Agree with heparin drip. Continue daily aspirin 81 mg, atorvastatin 40 mg daily. Initiate metoprolol succinate 25 mg daily and up titrate as tolerated. Follow up with the echocardiogram to look for wall motion abnormalities. Risks and benefits discussed with the patient and she is not a good candidate for cardiac catheterization at this time considering the renal function. It is recommended that the patient establishes care with a primary care physician for monitoring of kidney function. History of cardiac stenting in 2013 to mid CX/OM Recommended follow up in outpatient setting. Sepsis Pyelonephritis Bilateral ureteral stenting MILVIA vs CKD Rule out CVA Continue management as per urologist and hospitalist. Lizz Marcum MD Internal Medicine Resident, PGY-1 Patient seen and examined by Dr. GARCIA. Echocardiogram from 11/12/2024 reviewed. Ejection fraction 70%, moderate MR, mild TR, PA systolic pressure of 57 mm of mercury. Continue medical therapy. Sepsis Screening Reassessment Date: Nov 13, 2024 Date of Service: Nov 12, 2024 Billing Provider: ZACHARY GAYLE MD, SOWMYA MANJARI, AMALIA Nov 12, 2024 11:11 ZACHARY GAYLE MD Nov 13, 2024 18:28
[2024-11-12] MEDS: PERFLUTREN PROTEIN-A MICROSPHR (Optison) 0.22 MG/ML 3ML VIAL IV ONE (11:35)
[2024-11-12] MEDS: regadenoson 0.4mg/5ml syringe IV PRN (12:06)
--- NOTE | 2024-11-12 13:30 | RADIOLOGY REPORT ---
EXAM: NM NM FREDERICK SCAN History: nstemi Comparison Study: None available TECHNIQUE: Resting myocardial perfusion imaging was performed approximately 30 minutes following the injection of 8.12 mCi of Tc-99m sestamibi. Peak pharmacologic stress, the patient was injected with 3 2.78 mCi of Tc-99m sestamibi. Gated post stress images were acquired in the supine and prone position s approximately 30 minutes after stress and left ventricular ejection fraction (LVEF) was calculated. Findings: The overall quality of the study is adequate. The left ventricular cavity is noted to be enlarged. There is no evidence of abnormal lung activity. Additionally, the right ventricle appears normal. Myocardial perfusion images demonstrate a large size, severe intensity perfusion defect in the basal to mid inferolateral wall, which is fixed. Additional small size, moderate intensity perfusion defect in the distal anterolateral wall which is reversible. Gated imaging reveals focally hypokinetic wall motion with a calculated decreased LVEF of 36 % with e nd-diastolic volume of 141 mL at stress. Impression: 1. Small size, moderate intensity perfusion defect in the distal anterolateral wall which is reversib le favored ischemic. 2. Large size, severe intensity perfusion defect in the basal to mid inferolateral wall which is fixe d favored infarct. 3. Overall gated left ventricular systolic function was focally hypokinetic with calculated decreased LVEF of 36 % at stress. 4. Left ventricular enlargement.
--- NOTE | 2024-11-12 13:33 | RADIOLOGY REPORT ---
C-ARM FLUOROSCOPY: PROCEDURE: Stone removal and stent placement FLUOROSCOPY TIME: 45.8 seconds DAP: 21.1 mgy FINDINGS: Spot intraoperative C arm radiographs demonstrating retrograde pyelography and stent placement and st one removal. IMPRESSION: Please refer to surgical report for detailed findings.
[2024-11-12] MEDS: HEPARIN DRIP-CARDIAC**PHARMACIST-TO-DOSE IV ONE (14:10)
--- NOTE | 2024-11-12 14:20 | CONSULTATION REPORT - RESIDENT ---
Consult Providers to CC Resident Creating Document: MARGYOTTO AMALIA RODRIGUEZ History of Present Illness Reason for Admit\Complaint: Sepsis 2/2 pyeonephritis, b/l Nephrolithiasis, MILVIA History of Present Illness Nephrology has been consulted in view of the patient's MILVIA. 79-year-old female with past medical history of nephrolithiasis s/p right unilateral stent in 2013, coronary artery disease presented to the ED with a chief complaint of generalized weakness, decreased appetite, nausea and vomiting X 1 day prior to her admission. She also complained of neuropathy in her face with a severe pain in the left side of her face since the past five days. She also reports that she was stool she has been having blood in her urine since the past few days. She also complains of urgency incontinence since the past few years but has not been seen by any physician for it. She states that she stopped following up with her urologist Dr. Ramos since many years and is not sure how long it has been since she even saw her primary care physician. On initial evaluation the patient was found to be septic secondary to pyelonephritis. The patient also found her bilateral renal calculi with bilateral hydronephrosis. She is also being managed for MILVIA due to postrenal obstructive nephropathy. The Nephrology team has been consulted for further evaluation and management of the patient's MILVIA. Allergies: Coded Allergies: Penicillins (Verified Allergy, Unknown, 11/12/24) TOLERATED CEFEPIME 10/2024 Home Medications Home Medications Active Reported Prilosec (Omeprazole) 40 Mg Capsule 1 Cap PO DAILY 30 Days Past Medical History Past Medical History Nephrolithiasis status post stent placement Coronary artery disease status post stenting Past Surgical History Surgical History Comment Right unilateral ureteral stent placement -2013 Right wrist fracture repair Right ankle fracture repair Past Social History Social History Comment Denies smoking, alcohol or any recreational drug use. He is not following up with any physician, does not have a PCP at the moment. Lives at home. ROS ROS As stated above in the HPI, otherwise all systems are reviewed and negative. Exam Vitals: Vital Signs Date Time Temp Pulse Resp B/P (MAP) Pulse Ox O2 Delivery O2 Flow Rate FiO2 11/12/24 12:13 105 160/76 97 Room Air 0.0 11/12/24 11:58 20 11/12/24 06:55 99 11/12/24 04:00 98.2 General: General: Awake and Alert, no acute distress. HEENT: Conjunctiva pink, Sclera clear, Mucus Membranes moist. Neck: Supple without masses and tenderness. Resp: Unlabored. Lungs clear to auscultation bilaterally. Heart: Regular Rate and rhythm, normal S1 and S2 without murmur, rub or gallop. Abdomen: Soft and non tender no organomegaly Extremities: No cyanosis,clubbing or edema. Skin: Warm and Dry. Diagnostic Data Last Recorded Lab Results: 11/12/24 0551 11/12/24 0551 Diagnostic Data: Laboratory Tests Test 11/11/24 11:35 Prothrombin Time 11.2 SECONDS (9.0-12.0) INR International Normalized Ratio 1.1 INR Activated Partial Thromboplast Time 23 SECONDS (22-32) Coagulation Comments Additional Plan Nephrology consult note: Acute kidney injury Post renal MILVIA Obstructive uropathy Bilateral nephrolithiasis Status post cystoscopy, bilateral ureteral stent placement on 11/11/2024 Sepsis secondary to acute pyelonephritis Lactic acidosis The patient's acute kidney injury is most likely secondary to postrenal MILVIA due to the bilateral renal stones. The patient's initial creatinine and BUN were 4.42 and 44 respectively. Post bilateral ureteral stenting that was done yesterday the patient's renal function tests started improving. Creatinine and BUN are 3.64 and 48. Strict I's and O's monitoring. Continue current fluids for hydration and maintenance. The patient's acid-base balance is improving. Lactic acid was initially 10.5 and has come down to 1.5 and now. Continue to monitor renal function tests and electrolytes. Continue broad-spectrum IV antibiotics. Follow up with the urine and blood culture and change antibiotics as needed. Hyperkalemia Potassium 5.8 One time dose of sodium chloride 1 g IV. One time dose of 10 units of insulin with the dextrose. Monitor the patient's electrolytes closely. Continue telemetry monitoring. Type 2 [place] versus NSTEMI The patient has a up trending troponin. Denies any chest pain at the moment. She is planned to undergo cardiac stress test today. Management as per the primary team and Cardiology team. Otto Zamarripa MD Internal Medicine Resident, PGY-2 Date of Service: Nov 12, 2024 Billing Provider: QUANG JOHNSON III, SURYA PRATIK, AMALIA Nov 12, 2024 14:20
[2024-11-12] MEDS ORDERED: heparin 10,000 units/1 ML INJ IV ONE (14:25)
[2024-11-12] MEDS: MESSAGE TO NURSING IV ONE (14:55)
[2024-11-12 15:58] LABS: TOTAL PROTEIN,URINE RANDOM 196.4 MG/DL
--- NOTE | 2024-11-12 16:11 | [facility] CONSULT REPORT ---
[facility] Procedure Note [facility] Procedure Note Consult [facility] Note # Demographics Consult Type: General Neurology Patient Location: Inpatient First Name: Neela Last Name: Dahiana Date of : 1945 Age: 79 Gender: Female Facility: [facility] Time of Initial Page (): 11/12/2024 15:50 Time of Return Call ( Time): 11/12/2024 15:52 # HPI History: Ureteral stent for pyelonephritis. Left facial droop started several days ago. She tells me left face hurts. +nstemi plan for heparin gtt after mri Last Known Normal: several days # Scores Time of exam and NIHSS (): 11/12/2024 16:03 Level of Consciousness 1a: [0] = Alert; keenly responsive LOC Questions 1b: [0] = Answers both questions correctly LOC Commands 1c: [0] = Performs both tasks correctly Best Gaze 2: [0] = Normal Visual 3: [0] = No visual loss Facial Palsy 4: [1] = Minor paralysis Motor Arm Left 5a: [0] = No drift Motor Arm Right 5b: [0] = No drift Motor Leg Left 6a: [0] = No drift Motor Leg Right 6b: [0] = No drift Limb Ataxia 7: [0] = Absent Sensory 8: [0] = Normal Best Language 9: [0] = No aphasia Dysarthria 10: [1] = [id number] dysarthria Extinction and Inattention 11: [0] = No abnormality NIHSS Total: 2 # Data Head CT: - no bleed - per radiologist read # Assessment Impression: Facial pain typically not part of a stroke syndrome. PLease check for signs of facial/jaw infection. # Plan Thrombolytic/Intervention: NOT IV Thrombolysis or IA Intervention candidate Thrombolytic Exclusion: > 4.5 hours Intraarterial Exclusion: - clinical exam not consistent with presence of large vessel occlusion (LVO), can reconsider if LVO found on vascular imaging Target Blood Pressure: SBP < 180 Imaging: (urgency: routine): - MR Angiogram Neck with contrast - MRI Brain without contrast - MR Angiogram Head without contrast avoiding cta in setting of MILVIA Medication: asa 325 today Other: - If patient has any neurological deterioration please call me back immediately - would not pursue stroke work-up if MRI is negative - I have discussed my recommendations with the referring provider # Logistics Attestation of consult completion: The patient is located at: [facility]. Facility staff participated in the visit. I performed this telemedicine visit from my offsite office utilizing interactive 2 way audio and visual telecommunication technology. Total time spent in telemedicine encounter: I spent 21 minutes reviewing clinical data and/or imaging, obtaining history, examining the patient, communicating with the onsite care team, and in preparation of this report. # Demographics First Name: Neela Last Name: Dahiana Facility: [facility] Electronically signed at 11/12/2024 16:10 (Morris Time) by Carter Del Rio MD Neuro Consult Order placed for: Yes JOSS DEL RIO MD Nov 12, 2024 16:11
[2024-11-12] MEDS ORDERED: calcium chloride 100 MG/1 ML inj IV ONE (16:15)
[2024-11-12] MEDS: hydrALAZINE 20mg/ml inj. IV ONE (16:59)
[2024-11-12] MEDS: HYDROcodone/acetaminophen 10/325mg tab PO PRN (17:06)
[2024-11-12] MEDS: metoprolol succinate 25mg (24-HOUR) SR. Tablet PO ONE (17:06)
[2024-11-12 17:45] LABS: BASOPHILS % (AUTO) 0.1 % (0-1); EOSINOPHILS # (AUTO) 0.1 X10'3 (0-0.9); EOSINOPHILS % (AUTO) 0.3 % (0-6); HEMATOCRIT 35.9 % (35.0-45.0); HEMOGLOBIN 11.6 g/dl (12.0-16.0); LYMPHOCYTES # (AUTO) 1.7 X10'3 (1.1-4.8); LYMPHOCYTES % (AUTO) 6.3 % (21-51); MEAN CORPUSCULAR HEMOGLOBIN 31.1 PG (27.0-31.0); MEAN CORPUSCULAR HGB CONC 32.4 g/dL (33.0-36.5); MEAN CORPUSCULAR VOLUME 95.9 FL (78-98); MEAN PLATELET VOLUME 9.1 FL (7.4-10.4); MONOCYTES # (AUTO) 1.6 X10'3 (0-0.9); NEUTROPHILS # (AUTO) 23.3 X10'3 (1.8-7.7); NEUTROPHILS % (AUTO) 87.3 % (42-75); PLATELET COUNT 175 X10'3 (140-440); RED BLOOD COUNT 3.74 X10'6 (4.20-5.60); RED CELL DISTRIBUTION WIDTH 15.6 % (11.5-14.5)
[2024-11-12] MEDS: dextrose 50%-water 50ml dispensing syringe IV ONE (17:59)
[2024-11-12 18:00] LABS: INR 1.1 INR; PROTHROMBIN TIME 11.3 SECONDS (9.0-12.0)
[2024-11-12] MEDS ORDERED: metoprolol succinate 25mg (24-HOUR) SR. Tablet PO SCH (18:00)
[2024-11-12] MEDS: calcium chloride 100 MG/1 ML inj IV ONE (18:00)
[2024-11-12] MEDS: insulin regular, human 10 units/0.1 ml syringe IV ONE (18:02)
[2024-11-12 18:16] LABS: WHITE BLOOD COUNT 26.7 X10'3 (4.5-11.0)
[2024-11-12] MEDS: heparin 25,000 UNIT/250ml bag 250 ML IV PRN (19:06)
[2024-11-12 19:45] LABS: TOTAL CELLS COUNTED 100
[2024-11-12 19:46] LABS: BURR CELLS 1+; PLATELET ESTIMATE NORMAL
[2024-11-12] MEDS: atorvastatin 20mg tablet PO SCH (20:05)
[2024-11-12] MEDS: metoprolol succinate 25mg (24-HOUR) SR. Tablet PO SCH (20:05)
[2024-11-13] VITALS (8 sets, daily range): BP systolic 137–178; BP diastolic 69–97; PULSE 68–80; RESP 12–22; TEMP 97.1–98.2; O2SAT 96–98
--- NOTE | 2024-11-13 00:35 | CONSULTATION ---
DATE OF CONSULTATION: 11/12/2024 DICTATING PHYSICIAN: Mike Yeager MD REASON FOR CONSULTATION: I am seeing the patient at the request of Milton Andrea for evaluation of complicated urinary tract infection. HISTORY OF PRESENT ILLNESS: The patient is a 79-year-old female who presented to this facility yesterday with generalized weakness and nausea/vomiting. She did have some imaging performed early on that included a CT of the abdomen and pelvis. She was found to have a very large stone burden with bilateral stones obstructing the ureteropelvic junction. The right side measured 2.5 x 1.8 cm and the left side measured 3 x 2.3 cm. She did have some gas within the collecting systems and multiple bilateral intrarenal calculi. She was taken to the operating room by Dr. Vee. He did perform cystoscopy with bilateral retrograde pyelograms and bilateral ureteral stent placement. She did have evidence of acute kidney injury with a creatinine of 4.4 that seems to be improving at this point. White blood cell count has jumped from 4,500 up to 28,700. She was febrile when she came in at 101.1. Her dominant complaint right now is left facial pain. She states that she has had this happen in the past and she attributes this to neuropathy. She describes sharp, shooting pains that seem to worsen if she touches her face, talks too much or moves her eyes towards the left. She is also frustrated because her Chavez catheter seems to be leaking. She is receiving vancomycin and cefepime, although her cefepime dose is quite high given her renal function. She does not appear to be confused at this time. PAST MEDICAL HISTORY: * Nephrolithiasis. * History of pyelonephritis. * Coronary artery disease with history of myocardial infarction, status post percutaneous coronary intervention. * GERD. * Hypertension. * Dyslipidemia. ALLERGIES: PENICILLIN. MEDICATIONS: * Cefepime 2 g every 12 hours. * Vancomycin. * Aspirin. * Atorvastatin. * Colace. * Subcutaneous heparin. FAMILY HISTORY: Noncontributory. SOCIAL HISTORY: She lives locally in [place]. I believe she is . She does not smoke or drink alcohol. PHYSICAL EXAMINATION: VITAL SIGNS: She is now afebrile with stable vital signs on room air. GENERAL: She is an elderly female, currently sitting up in bed looking a bit uncomfortable and frustrated. She wanted me to stand on her right side given the fact that her face is bothered by looking to the left. HEENT: I do not see any rash at the face. I did not touch her face or ask her to manipulate her face due to the pain that sometimes starts. NECK: Supple. LUNGS: Clear to auscultation bilaterally. HEART: Regular rate and rhythm. ABDOMEN: Obese and soft without significant tenderness. She does have a Chavez catheter in place that appears to be leaking. EXTREMITIES: Without significant edema. LABORATORY DATA: White blood cell count is 28,700, hemoglobin 11, platelets 167,000. Creatinine is down to 3.6. Procalcitonin is 109.5. Urinalysis with wbc's too numerous to count with bacteria. Unfortunately, the urine culture was described as mixed nimo. I do not believe any new cultures were taken from the OR. Blood cultures are pending. CT imaging has been reviewed. Once again, she does have extensive stones with bilateral renal calculi obstructing the ureteropelvic junction. IMPRESSION: * Severe sepsis with acute kidney injury. She seems to be stable at this time. I am not surprised that her white blood cell count and procalcitonin went up today after her urological procedure. Her renal function appears to be improving. * Complicated urinary tract infection with suspected pyelonephritis. * Nephrolithiasis with obstructing ureteral stone bilaterally status post ureteral stent placement bilaterally. * Facial pain that may be neuropathic. RECOMMENDATIONS: She will continue with vancomycin. I am going to discontinue cefepime as her dose is clearly too high. She will be switched over to ceftriaxone 2 g daily. I will follow up her blood cultures. I did ask nursing to potentially change her urinary catheter and send a new sample for culture. Hopefully, her renal function will continue to improve. Antibiotics will be adjusted based on culture results. Duration of therapy is unclear at this point. I did start gabapentin 100 mg daily given her facial pain. I will continue to follow her closely and I thank you for allowing me to participate in her care. 75 minutes time spent [id number], review of medical record including labs/cultures/imaging, orders and documentation. Mike Yeager MD TID: [id number] RECEIPT: [id number] SESAR/EPI PACE
[2024-11-13 01:46] LABS: BASOPHILS # (AUTO) 0.1 X10'3 (0-0.2); BASOPHILS % (AUTO) 0.4 % (0-1); EOSINOPHILS # (AUTO) 0.2 X10'3 (0-0.9); EOSINOPHILS % (AUTO) 0.8 % (0-6); HEMATOCRIT 36.8 % (35.0-45.0); HEMOGLOBIN 11.8 g/dl (12.0-16.0); LYMPHOCYTES # (AUTO) 1.7 X10'3 (1.1-4.8); LYMPHOCYTES % (AUTO) 7.6 % (21-51); MEAN CORPUSCULAR HEMOGLOBIN 30.7 PG (27.0-31.0); MEAN CORPUSCULAR VOLUME 95.9 FL (78-98); MEAN PLATELET VOLUME 9.2 FL (7.4-10.4); MONOCYTES # (AUTO) 0.9 X10'3 (0-0.9); MONOCYTES % (AUTO) 3.9 % (2-12); NEUTROPHILS # (AUTO) 19.4 X10'3 (1.8-7.7); NEUTROPHILS % (AUTO) 87.3 % (42-75); PLATELET COUNT 158 X10'3 (140-440); RED BLOOD COUNT 3.83 X10'6 (4.20-5.60); RED CELL DISTRIBUTION WIDTH 15.2 % (11.5-14.5); WHITE BLOOD COUNT 22.2 X10'3 (4.5-11.0)
[2024-11-13 01:52] LABS: BILIRUBIN,URINE NEGATIVE (Neg); CLARITY,URINE CLOUDY (Clear); COLOR,URINE YELLOW (Yellow); GLUCOSE, URINE NEGATIVE (Neg); KETONES,URINE NEGATIVE (Neg); LEUKOCYTE ESTERASE ,URINE MODERATE (Neg); NITRITES, URINE NEGATIVE (Neg); OCCULT BLOOD,URINE LARGE (Neg); PROTEIN,URINE 100 mg/dl (Neg); UROBILINOGEN,URINE 0.2 E.U/dL (0.2-1.0)
[2024-11-13 01:56] LABS: UA COLLECTION TYPE FOLEY CATH
[2024-11-13 02:01] LABS: ALANINE AMINOTRANSFERASE 29 U/L (12-78); ALBUMIN 2.4 G/DL (3.4-5.0); ALBUMIN/GLOBULIN RATIO 0.5 (1.1-1.5); ALKALINE PHOSPHATASE 50 IU/L (46-116); ANION GAP 15 (8-16); ASPARTATE AMINO TRANSFERASE 32 U/L (10-37); BILIRUBIN,TOTAL 0.4 MG/DL (0.1-1.0); BLOOD UREA NITROGEN 57 MG/DL (7-18); BUN/CREATININE RATIO 17.4 (10.0-20.0); CALCIUM 10.3 MG/DL (8.5-10.1); CHLORIDE 111 MMOL/L (99-107); CREATININE 3.27 MG/DL (0.40-0.90); GLUCOSE 111 MG/DL (70-104); MAGNESIUM 1.8 MG/DL (1.5-2.4); POTASSIUM 4.6 MMOL/L (3.5-5.1); SODIUM 142 MMOL/L (135-145); TOTAL CARBON DIOXIDE 16.5 MMOL/L (24-32); TOTAL PROTEIN 6.8 G/DL (6.4-8.2); eCRCL 13 ML/MIN; eGFR 14 ML/MIN
[2024-11-13 02:05] LABS: BACTERIA,URINE 2+ /HPF (Neg); RBC,URINE TNTC /HPF (0-2); SQUAMOUS EPITHELIAL CELL,UR NONE SEEN /LPF (FEW); WBC,URINE TNTC /HPF (0-4)
[2024-11-13] MEDS: heparin 10,000 units/1 ML INJ IV PRN (02:24)
[2024-11-13] MEDS: MESSAGE TO NURSING IV ONE ×4 (02:28→21:00)
[2024-11-13] MEDS: CefTRIAXone 2gm/D5W 50ml BAG 50 ML IV SCH (08:19)
[2024-11-13] MEDS: normal saline 1000ml 1,000 ML IV SCH (09:10)
--- NOTE | 2024-11-13 10:03 | PROGRESS NOTE- Residence ---
Progress Note - Resident Providers to CC Resident Creating Document: OTTO ZAMARRIPATIKAMALIA ~ Antibiotic Timeout Antibiotic Ordered?: Yes Subjective Patient seen and examined at the bedside today. Was complaining of acute pain in the left side of her face that lasted for couple of sec. States that that she has been having similar kind of pain intermittently since the past few months. Denied any other concerns or complaints at the moment. Denied any chest pain, nausea, vomiting, headache, confusion, abdominal pain or back pain. Denied any burning micturition. Objective Vital Signs Date Time Temp Pulse Resp B/P (MAP) Pulse Ox O2 Delivery O2 Flow Rate FiO2 11/13/24 07:00 97.9 80 21 160/97 (118) 97 Room Air 11/12/24 12:13 0.0 11/12/24 06:55 99 Result Diagram: 11/13/24 01311/13/24129 General: Awake and Alert, no acute distress. HEENT: Conjunctiva pink, Sclera clear, Mucus Membranes moist. Neck: Supple without masses and tenderness. Resp: Unlabored. Lungs clear to auscultation bilaterally. Heart: Regular Rate and rhythm, normal S1 and S2 without murmur, rub or gallop. Abdomen: Soft and non tender no organomegaly Extremities: No cyanosis,clubbing or edema. Skin: Warm and Dry. Neurology: No gross focal abnormalities noted. Coagulation Studies Laboratory Tests Test 11/11/24 11:35 11/12/24 17:28 11/13/24 08:36 Activated Partial Thromboplast Time 23 SECONDS (22-32) Prothrombin Time 11.3 SECONDS (9.0-12.0) INR International Normalized Ratio 1.1 INR APTT (Heparin Protocol) 63 SECONDS (45-60) H Coagulation Comments Assessment Assessment 79-year-old female with past medical history of coronary artery disease, nephrolithiasis is admitted in the hospital for evaluation and management of acute pyelonephritis, sepsis, postrenal MILVIA. Plan Plan Nephrology progress note: Acute kidney injury most likely postrenal MILVIA Obstructive uropathy due to bilateral nephrolithiasis Status post cystoscopy, bilateral ureteral stent placement on 11/11/2024 Sepsis secondary to acute pyelonephritis Lactic acidosis The patient's acute kidney injury is most likely secondary to postrenal MILVIA due to the bilateral renal stones. The patient's renal function has been improving significantly. The BUN and creatinine today are 57 and 3.27 respectively. The patient continues to have good urinary output. Continue straight input and output monitoring. Maintain balance between the patient's input and output and avoid negative fluid balance to avoid dehydration and further renal impairment. The patient's acidosis is improving. Continue to monitor renal function tests and electrolytes. Continue current IV antibiotics. Appreciate Infectious Disease consultation and recommendation. Hyperkalemia-resolved Continue to monitor the patient's electrolytes closely. Type 2 [place] versus NSTEMI Cardiac stress test positive for reversible ischemia. Management as per the health promotion specialist. Facial pain most likely neuropathic Possible underlying acute versus chronic CVA Follow up as per Neurology recommendations. Otto Zamarripa MD Internal Medicine Resident, PGY-2 Date of Service: Nov 13, 2024 Billing Provider: QUANG JOHNSON III, SURYA PRATIK, RES Nov 13, 2024 10:03
[2024-11-13] MEDS ORDERED: lactose-reduced food (Ensure Enlive) - 237ml bottle PO SCH (13:00)
[2024-11-13] MEDS: ondansetron/PF 4mg/2ml inj IV PRN (14:42)
[2024-11-13] MEDS: lactose-reduced food (Ensure Enlive) - 237ml bottle PO SCH (18:11)
--- NOTE | 2024-11-13 18:17 | CARDIOLOGY REPORT ---
APPROVED REPORT EXAM: Comprehensive 2D, Doppler, and color-flow Echocardiogram. Patient Location: 302 Heart Rate: 88 bpm Rhythm: SINUS W/ FREQ PACs Indications ALTERED LEVEL OF CONSCIOUSNESS CORONARY ARTERY DISEASE - MS -STENT X Papier Mache' Molder: MD Juanita Previous echo: 01/22/14BVC OFF CD EF: 65%; modCLVH; mTR; trMR; nlLA; 2D Dimensions RVDd 3.3 cm LVOT Diameter 2.04 (1.8-2.4cm) CO 11.1 L/min M-Mode Dimensions IVSd 1.37 (0.7-1.1cm) LVDd 5.77 (4.0-5.6cm) PWd 1.60 (0.7-1.1cm) IVSs 2.11 cm LVDs 3.07 (2.0-3.8cm) FS (%) 47 % PWs 2.06 cm ESV(Teich) 36.9 ml LVEF(%) 78 (>50%) Aortic Valve AoV Peak Julian. 154.6 cm/s AoV VTI 28.5 cm AO Peak GR. 9.6 mmHg AO Mean GR. 5 mmHg LVOT VTI 19.32 cm LVOT Peak Julian. 91.9 cm/s DIONISIO(VTI)/BSA 2.21 cm2/m2 DIONISIO (VTI) 2.21 cm2 Mitral Valve MV E Velocity 99.1 cm/s MV DECEL TIME 160 ms MV A Velocity 66.6 cm/s MV PHT 78 ms E/A Ratio 1.5 MVA (PHT) 3.20 cm2 Tricuspid Valve TR P. Velocity 344 cm/s RAP ESTIMATE 10 mmHg TR Peak Gr. 47 mmHg RVSP 57 mmHg LEFT VENTRICLE Small LV size with hyperdynamic function. Mild concentric hypertrophy. overallLVEF is 70%. RIGHT VENTRICLE RV is normal size and function. Thickened RV free wall. estimated PA systolic pressure of 57 mm of m ercury. ATRIA Left atrium is mildly dilated. AORTIC VALVE Trileaflet AV appears mildly sclerotic without stenosis. Mild insufficiency. MITRAL VALVE Mild MV annular calcification without stenosis. Moderate regurgitation. TRICUSPID VALVE TV appears structurally normal with mild regurgitation. PULMONIC VALVE Normal PV without stenosis, physiologic insufficiency. GREAT VESSELS Aortic root is normal in size. Ascending aorta is normal in size. PERICARDIUM Normal pericardium. No effusion. Other Information Study Quality: Technically Difficult DUE TO HABITUS, POOR COOPERATION, AND RESPIRATORY STATUS Conclusion overallLVEF is 70%. Small LV size with hyperdynamic function. Mild concentric hypertrophy. RV is normal size and function. Thickened RV free wall. estimated PA systolic pressure of 57 mm of mercury. Trileaflet AV appears mildly sclerotic without stenosis. Mild insufficiency. Mild MV annular calcification without stenosis. Moderate regurgitation. TV appears structurally normal with mild regurgitation. Normal PV without stenosis, physiologic insufficiency. Ascending aorta is normal in size.
--- NOTE | 2024-11-13 18:25 | PROGRESS NOTE ---
Daily Progress Note Providers to CC Chief complaint, left face pain ~ Central Line/PICC still needed: No Chavez-Non Protocol Chavez Indications Met/Not Met: F/C Indications Not Met Antibiotic Timeout Antibiotic Ordered?: Yes MRSA Education MRSA Education Provided to pt: Yes Subjective As above Objective Vital Signs Date Time Temp Pulse Resp B/P (MAP) Pulse Ox O2 Delivery O2 Flow Rate FiO2 11/13/24 15:00 97.1 75 18 137/89 (105) 97 Room Air 11/12/24 12:13 0.0 11/12/24 06:55 99 Vital signs, stable ,afebrile. Pulse Oximetry reflects adequate oxygenation, in pain secondary to left face pain General: well developed, well nourished. Awake , alert, and oriented x4, resting comfortably in the bed, in no acute distress . Skin: Warm, dry, no pallor, no rash or petechiae. HEENT: Atraumatic, normocephalic, EOMI, anicteric sclera B; pink conjunctiva; PERRLA, normal oropharynx, moist oral and nasal mucosa. Tympanic membrane , nose , throat clear. Very poor dentition Neck: Trachea midline. Supple, full range of motion, no JVD, bruit , hepatojugular reflex , lymphadenopathy or masses, or other lesions Cardiac: Regular rhythm, regular rate no murmurs, rubs, or gallops. Normal S1 and S2, no S3 noticed. PMI is normal. Respiratory: Equal breath sounds bilaterally, no tachypnea; lungs clear to auscultation bilaterally, no wheezing ,rub or rales, or crackles. Chest wall is symmetric and without deformity. No signs of trauma. Chest wall is nontender. No signs of respiratory distress. Resonance is normal upon percussion bilaterally. Gastrointestinal: Abdomen symmetric, non-distended, soft, non-tender, normal bowel sounds x4 quadrant, normoactive, no hepatosplenomegaly , no masses , no bruit, no flank pain bilaterally. No voluntary guarding, rebound, or rigidity. No tenderness to percussion. No pulsatile masses. Equal femoral pulses. No Cabrera's sign or McBurney point tenderness. Back; no CVA tenderness bilaterally, no deformities. Neck and back are without deformity as well. No tenderness noted on palpation of the spinous processes. Spinous processes are midline. Cervical, thoracic, and lumbar paraspinal muscles are not tender and are without spasm. Musculoskeletal: Extremities, normal range of motion, non-tender, muscle strength 5/5 x 4. Negative Homans signs bilaterally on lower extremity. Distal pulses full symmetrical, no clubbing, cyanosis , edema. Neurological: Speech is clear, alert, and oriented x 4. No motor or sensory deficit, deep tendon reflexes normal, cerebellar intact. Cranial nerves II-XII intact. Psych: Alert and or appropriate, normal affect. Vascular: Good distal pulses, which are equal x4; capillary refill less than 2 seconds. Lymphatic, no lymphadenopathy. Result Diagram: 11/13/24 0130 11/13/24 0130 Coagulation Studies Laboratory Tests Test 11/11/24 11:35 11/12/24 17:28 11/13/24 15:32 Activated Partial Thromboplast Time 23 SECONDS (22-32) Prothrombin Time 11.3 SECONDS (9.0-12.0) INR International Normalized Ratio 1.1 INR APTT (Heparin Protocol) 35 SECONDS (45-60) L Coagulation Comments Problem\Assessment\Plan Assessment/plan # Acute pyelonephritis 2/2 hydronephrosis 2/2 nephrolithiasis # Severe sepsis 2/2 pyelonephritis # Metabolic acidosis, AGMA # Lactic acidosis # Postrenal MILVIA 2/2 nephrolithiasis # UTI # Hyperkalemia 2/2 MILVIA # NSTEMI -CT positive b/l nephrolithiasis, hydronephrosis, pyelonephritis, bicarb 8.3, pH 7.2, lactic acid 10-2.5, AG 24, sinus tachy, fever, procal 63, UA UTI +, Cr 4.42 GFR 10, with BUN/Cr 10 likely prolonged damage, no known hx CKD -3L bolus fluid resuscitation given & continuous LR; vancomycin, cefepime, prn acetaminophen, prn metoprolol for HR>120 given severe sepsis -repeat lactic acid, follow blood/urine culture, urine lytes -OR for b/l ureteral stent by Dr. Vee today; consulted ID Dr. Yeager, suzie w/treatment plan -11/12: troponins overnight uptrending, renal function improving but severely compromised; consulted on-call Dr. Sparkle Patiño as her business law teacher not available in town today. Consulted awning maker and installer Dr. Funk. # NSTEMI # [place] s/p cardiac stent (2013, Dr. Friend) -has not been taking statin, only on aspirin at home -follow troponins, Lexiscan based on trop trend, heparin as indicated -11/12: uptrending trops, consulted Dr. Friend, Lexiscan positive, heparin drip started, prn nitroglycerin, continued on high-intensity statin, aspirin, metoprolol # Hx Trigeminal neuralgia # CVA - cannot exclude -new onset left-sided facial droop x 4days -CT head negative, start aspirin, statin, follow MRI, Teleneurology consult -11/12: MRI head/neck cannot be done for next 14 days due to b/l ureteral stent placement, will start cardiac heparin drip WO bolus DVT/VTE prophylaxis: heparin Code status: Full code Sepsis Screening Reassessment Date: Nov 13, 2024 Date of Service: Nov 13, 2024 Billing Provider: JULIA ANGEL MD Common Visit Codes: [id number] INP/OBS CARE(HIGH) JULIA ANGEL MD Nov 13, 2024 18:25
--- NOTE | 2024-11-13 18:47 | RADIOLOGY REPORT ---
EXAM: CT CT FACIAL BONES/SOFT TISSUE INDICATION: L maxilla pain EXAM DATE: 11/13/2024 05:40 PM COMPARISON: None TECHNIQUE: Multiple axial CT images of the maxilla and face were obtained using bone algorithm. Axial and coronal reformatting was done. Bone and soft tissue windows were reviewed. Radiation Dose Information: CT Dose: CTDI volume is 54.49 mGy. Dose-length product is 933.05 mGy*cm Findings: There is no evidence of an acute fracture or traumatic subluxations. No evidence of lytic, blastic, or osseous destructive lesions. The paranasal sinuses, middle ear cavities, and mastoid air cells are normally aerated. The globes an d orbits are within normal limits. No definite abnormality of the left maxilla. The nasal septum, nasal cavity, nasopharynx, and oropharynx are grossly unremarkable. The paraspinal and neck soft tissues appear within normal limits. Impression: 1. No acute osseous abnormalities.
--- NOTE | 2024-11-13 20:14 | PROGRESS NOTE- Residence ---
Progress Note - Resident Providers to CC Resident Creating Document: LIZZ MARCUM, RES ~ Antibiotic Timeout Antibiotic Ordered?: Yes Subjective The patient was seen and examined at bedside today. She was sitting on a chair. Spoke to her daughter Raisa over the phone. Explained regarding the diagnoses. Risks and benefits discussed. Decided to proceed with conservative management with dual antiplatelet therapy for now and follow up outpatient with Dr. Gayle. Advised them to establish care with PCP. Objective Vital Signs Date Time Temp Pulse Resp B/P (MAP) Pulse Ox O2 Delivery O2 Flow Rate FiO2 11/13/24 15:00 97.1 75 18 137/89 (105) 97 Room Air 11/12/24 12:13 0.0 11/12/24 06:55 99 Result Diagram: 11/13/2412911/13/24129 Elderly female, alert and oriented x4, not in acute distress Head: Normocephalic with an atraumatic Eyes: Pupils- 3mm, reacting to light, conjunctiva- anicteric Nose and throat: No polyps, septum- normal, no mucosal ulcers Neck: Supple, no lymphadenopathy, no carotid bruit Respiratory: No use of accessory muscles of respiration, Bilateral normal vesiscular breath sounds heard. No wheeze, rhochi or creps Cardiac: S1-S2 heard, rhythm regular, no gallop/murmur Abdomen: non distended, no tenderness, no organomegaly, bowel sounds - heard Extremities: no clubbing, no pedal edema, no deformities, peripheral pulses - 2+ Skin: warm and dry, no rash, no purpura Neuro: No focal deficit, gross cranial nerve exam - normal Coagulation Studies Laboratory Tests Test 11/11/24 11:35 11/12/24 17:28 11/13/24 15:32 Activated Partial Thromboplast Time 23 SECONDS (22-32) Prothrombin Time 11.3 SECONDS (9.0-12.0) INR International Normalized Ratio 1.1 INR APTT (Heparin Protocol) 35 SECONDS (45-60) L Coagulation Comments Plan Plan Elevated troponins likely secondary to Non Q wave [place] No history of angina or associated symptoms. Elevated troponins and positive stress test - small reversible defect in distal anterolateral wall and large fixed defect in the basal to mid inferolateral wall. No wall motion abnormalities. Currently on heparin drip, finished one day. Continue for one more day. Risks and benefits explained. Agreed with conservative management. Start dual antiplatelet therapy with aspirin and plavix after discontinuing heparin drip. Continue metoprolol succinate 50 mg daily and atorvastatin 80 mg daily. Continue follow up with Dr. Gayle outpatient setting. Acute exacerbation of diastolic CHF EF 70%. ProBNP 28K. Also secondary to CKD. Decreased the fluid rate to 75 ml/hr. Keep the patient euvolemic. Lasix not recommended in the setting of MILVIA. Strict input and output monitoring. Daily weights. History of cardiac stenting in 2013 to CX/OM Recommended follow up in outpatient setting. Moderate mitral regurgitation Pulmonary hypertension Sepsis Pyelonephritis Bilateral ureteral stenting Post renal MILVIA Rule out CVA Continue management as per urologist and hospitalist. Lizz Marcum MD Internal Medicine Resident, PGY-1 Patient seen and examined by Dr. Ángela HERNANDEZ Patient be hydrated by Nephrology Service because of her renal function abnormalities. Recommend close monitoring of her volume status in view of elevated pro BNP and breathing issues. Patient is also being evaluated for minor CVA. Date of Service: Nov 13, 2024 Billing Provider: ZACHARY GAYLE MD, SOWMYA MANJARI, RES Nov 13, 2024 20:14 ZACHARY GAYLE MD Nov 14, 2024 18:38
[2024-11-13] MEDS: hydrALAZINE 20mg/ml inj. IV PRN (22:56)
[2024-11-14] VITALS (8 sets, daily range): BP systolic 109–189; BP diastolic 70–98; PULSE 67–83; RESP 14–25; TEMP 97.3–98.1; O2SAT 93–96
[2024-11-14 07:08] LABS: BASOPHILS % (AUTO) 0.3 % (0-1); EOSINOPHILS # (AUTO) 0.1 X10'3 (0-0.9); EOSINOPHILS % (AUTO) 0.9 % (0-6); HEMATOCRIT 33.6 % (35.0-45.0); HEMOGLOBIN 11.1 g/dl (12.0-16.0); LYMPHOCYTES # (AUTO) 1.2 X10'3 (1.1-4.8); LYMPHOCYTES % (AUTO) 7.4 % (21-51); MEAN CORPUSCULAR HEMOGLOBIN 31.3 PG (27.0-31.0); MEAN CORPUSCULAR HGB CONC 32.9 g/dL (33.0-36.5); MEAN CORPUSCULAR VOLUME 95.2 FL (78-98); MEAN PLATELET VOLUME 9.7 FL (7.4-10.4); MONOCYTES # (AUTO) 1.2 X10'3 (0-0.9); MONOCYTES % (AUTO) 7.5 % (2-12); NEUTROPHILS # (AUTO) 13.4 X10'3 (1.8-7.7); NEUTROPHILS % (AUTO) 83.9 % (42-75); PLATELET COUNT 155 X10'3 (140-440); RED BLOOD COUNT 3.53 X10'6 (4.20-5.60); RED CELL DISTRIBUTION WIDTH 14.9 % (11.5-14.5)
[2024-11-14 07:37] LABS: ALANINE AMINOTRANSFERASE 22 U/L (12-78); ALBUMIN 2.2 G/DL (3.4-5.0); ALBUMIN/GLOBULIN RATIO 0.5 (1.1-1.5); ALKALINE PHOSPHATASE 62 IU/L (46-116); ANION GAP 12 (8-16); ASPARTATE AMINO TRANSFERASE 18 U/L (10-37); BILIRUBIN,TOTAL 0.5 MG/DL (0.1-1.0); BLOOD UREA NITROGEN 53 MG/DL (7-18); BUN/CREATININE RATIO 21.9 (10.0-20.0); CALCIUM 9.5 MG/DL (8.5-10.1); CHLORIDE 113 MMOL/L (99-107); CREATININE 2.42 MG/DL (0.40-0.90); GLUCOSE 134 MG/DL (70-104); MAGNESIUM 1.7 MG/DL (1.5-2.4); POTASSIUM 4.1 MMOL/L (3.5-5.1); SODIUM 142 MMOL/L (135-145); TOTAL PROTEIN 6.7 G/DL (6.4-8.2); eCRCL 18 ML/MIN; eGFR 19 ML/MIN
[2024-11-14] MEDS: MESSAGE TO NURSING IV ONE ×2 (07:39→14:35)
[2024-11-14] MEDS: pantoprazole 40mg Tablet.DR PO SCH (09:17)
--- NOTE | 2024-11-14 10:00 | PROGRESS NOTE- Residence ---
Progress Note - Resident Providers to CC Resident Creating Document: LIZZ MARCUM, RES ~ Antibiotic Timeout Antibiotic Ordered?: Yes Subjective The patient was seen and examined at bedside today. She reported that she is unable to eat or drink. She was drowsy at the time of examination. Did not let me examine her feet. Objective Vital Signs Date Time Temp Pulse Resp B/P (MAP) Pulse Ox O2 Delivery O2 Flow Rate FiO2 11/14/24 06:00 78 11/14/24 06:00 97.6 16 170/92 (118) 96 Room Air 11/12/24 12:13 0.0 11/12/24 06:55 99 Result Diagram: 11/14/24 0656 11/14/24 06 Elderly female, alert and oriented x4, not in acute distress Head: Normocephalic with an atraumatic Eyes: Pupils- 3mm, reacting to light, conjunctiva- anicteric Nose and throat: No polyps, septum- normal, no mucosal ulcers Neck: Supple, no lymphadenopathy, no carotid bruit Respiratory: No use of accessory muscles of respiration, Bilateral normal vesiscular breath sounds heard. No wheeze, rhochi or creps Cardiac: S1-S2 heard, rhythm regular, no gallop/murmur Abdomen: non distended, no tenderness, no organomegaly, bowel sounds - heard Extremities: no clubbing, no deformities, peripheral pulses - 2+ Skin: warm and dry, no rash, no purpura Neuro: No focal deficit, gross cranial nerve exam - normal Coagulation Studies Laboratory Tests Test 11/11/24 11:35 11/12/24 17:28 11/14/24 06:56 Activated Partial Thromboplast Time 23 SECONDS (22-32) Prothrombin Time 11.3 SECONDS (9.0-12.0) INR International Normalized Ratio 1.1 INR APTT (Heparin Protocol) 56 SECONDS (45-60) Coagulation Comments Plan Plan Elevated troponins likely secondary to Non Q wave [place] No history of angina or associated symptoms. Elevated troponins and positive stress test - small reversible defect in distal anterolateral wall and large fixed defect in the basal to mid inferolateral wall. No wall motion abnormalities. The patient will finish 48 hours of heparin drip this evening. Risks and benefits discussed with the patient and her daughter Raisa yesterday. Agreed with conservative management. Start dual antiplatelet therapy with aspirin and plavix. Continue metoprolol succinate 50 mg daily and atorvastatin 80 mg daily. Continue follow up with Dr. Gayle outpatient setting. Acute exacerbation of diastolic CHF EF 70%. ProBNP 28K. Also secondary to CKD. Decreased the fluid rate to 75 ml/hr. Keep the patient euvolemic. Lasix not recommended in the setting of MILVIA. Strict input and output monitoring. Daily weights. History of cardiac stenting in 2013 to mid CX/OM Recommended follow up in outpatient setting. Moderate mitral regurgitation Pulmonary hypertension Sepsis Pyelonephritis Bilateral ureteral stenting Post renal MILVIA Rule out CVA Continue management as per urologist and hospitalist. MRI unable to perform because of ureteral stents. Lizz Marcum MD Internal Medicine Resident, PGY-1 Patient seen and examined by Dr. Ángela HERNANDEZ. 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 CT scan was negative. Patient had tele neurology evaluation. Needed MRI which could not be done because of Recent ureteral stents. Patient to eventually follow up with Neurology as well. Patient in the meantime being treated with aspirin, Plavix, high-dose statins and beta blockers. Date of Service: Nov 14, 2024 Billing Provider: ZACHARY GAYLE MD, SOWMYA MANJARI, RES Nov 14, 2024 10:00 ZACHARY GAYLE MD Nov 14, 2024 18:40
--- NOTE | 2024-11-14 10:23 | PROGRESS NOTE ---
Progress Note Dictate Providers to CC ~ Subjective Subjective: She continues to report sharp shooting pain at the face. This is mainly localized to the left upper lip near the nasolabial fold. Pain has been severe. She is on a heparin infusion. Objective Objective: GENERAL: Elderly female, currently sitting up in bed looking uncomfortable due to facial pain HEENT: No rash at face. She does have some teeth remaining. LUNGS: Clear to auscultation bilaterally. HEART: Regular rate and rhythm. ABDOMEN: Obese and soft without significant tenderness. EXTREMITIES: Without significant edema. Lab Results: 11/14/24 0656 11/14/24 0656 Lab comments: 11/11 blood culture with Gram-negative isidoro Radiology comments: CT face unremarkable Problem\Assessment\Plan Additional Plan 1. Severe sepsis with acute kidney injury - renal function improving 2. Gram-negative sepsis related to urinary tract infection 3. Complicated urinary tract infection with suspected pyelonephritis 4. Nephrolithiasis with obstructing ureteral stone bilaterally status post ureteral stent placement bilaterally 5. Facial pain of unclear etiology that appears to have a neuropathic component Continue ceftriaxone Vancomycin has been stopped Follow up blood culture results Duration of therapy unclear at this time Increase gabapentin CINDA BUCHANAN MD Nov 14, 2024 10:23
--- NOTE | 2024-11-14 11:48 | PROGRESS NOTE- Residence ---
Progress Note - Resident Providers to CC Resident Creating Document: MARGYOTTO RES ~ Antibiotic Timeout Antibiotic Ordered?: Yes Subjective The patient was seen and examined at bedside today. Continues to complain of intermittent severe right facial pain. Also reports has not been able to eat or drink properly since the past few days. Denied any other concerns or complaints at the moment. Objective Vital Signs Date Time Temp Pulse Resp B/P (MAP) Pulse Ox O2 Delivery O2 Flow Rate FiO2 11/14/24 11:10 97.6 79 25 189/98 (128) 93 Room Air 11/12/24 12:13 0.0 11/12/24 06:55 99 Result Diagram: 11/14/2456 11/14/24 06 General: Awake and Alert, no acute distress. HEENT: Conjunctiva pink, Sclera clear, Mucus Membranes moist. Neck: Supple without masses and tenderness. Resp: Unlabored. Lungs clear to auscultation bilaterally. Heart: Regular Rate and rhythm, normal S1 and S2 without murmur, rub or gallop. Abdomen: Soft and non tender no organomegaly Extremities: No cyanosis,clubbing or edema. Skin: Warm and Dry. Neurology: No gross focal motor or sensory deficits noted. Coagulation Studies Laboratory Tests Test 11/11/24 11:35 11/12/24 17:28 11/14/24 06:56 Activated Partial Thromboplast Time 23 SECONDS (22-32) Prothrombin Time 11.3 SECONDS (9.0-12.0) INR International Normalized Ratio 1.1 INR APTT (Heparin Protocol) 56 SECONDS (45-60) Coagulation Comments Assessment Assessment 79-year-old female with past medical history of coronary artery disease, nephrolithiasis is admitted in the hospital for evaluation and management of acute pyelonephritis, sepsis, postrenal MILVIA. Plan Plan Nephrology progress note: Acute kidney injury -postrenal MILVIA Obstructive uropathy due to bilateral nephrolithiasis Status post cystoscopy, bilateral ureteral stent placement on 11/11/2024 Sepsis secondary to acute pyelonephritis Lactic acidosis The patient's acute kidney injury is 2/2 postrenal MILVIA due to the bilateral renal stones. The patient's renal function has been improving significantly. The BUN and creatinine today are 53 and 2.42 respectively. The patient continues to have good urinary output. Continue straight input and output monitoring. Maintain balance between the patient's input and output and avoid negative fluid balance to avoid dehydration and further renal impairment. The patient's acidosis is improving. Continue to monitor renal function tests and electrolytes. Continue current IV antibiotics. Appreciate Infectious Disease consultation and recommendation. Hyperkalemia-resolved Continue to monitor the patient's electrolytes closely. Type 2 [place] versus NSTEMI Cardiac stress test positive for reversible ischemia. Management as per the sand miller. Facial pain most likely neuropathic Possible underlying acute versus chronic CVA Follow up as per Neurology recommendations. Otto Zamarripa MD Internal Medicine Resident, PGY-2 Date of Service: Nov 14, 2024 Billing Provider: QUANG JOHNSON III, SURYA PRATIK, RES Nov 14, 2024 11:48
[2024-11-14] MEDS: amLODIPine 5mg tablet PO ONE (14:33)
[2024-11-14] MEDS: clopidogrel 75mg tablet PO ONE (14:43)
--- NOTE | 2024-11-14 18:06 | PROGRESS NOTE ---
Daily Progress Note Providers to CC ~ still complaining of left side of the face pain secondary to multiple dental decay and gingivitis Central Line/PICC still needed: No Chavez-Non Protocol Chavez Indications Met/Not Met: F/C Indications Not Met Antibiotic Timeout Antibiotic Ordered?: Yes MRSA Education MRSA Education Provided to pt: Yes Subjective As above Objective Vital Signs Date Time Temp Pulse Resp B/P (MAP) Pulse Ox O2 Delivery O2 Flow Rate FiO2 11/14/24 15:00 98.1 75 18 164/73 (103) 94 Room Air 11/12/24 12:13 0.0 11/12/24 06:55 99 Vital signs, stable ,afebrile. Pulse Oximetry reflects adequate oxygenation. General: well developed, well nourished. Awake , alert, and oriented x4, resting comfortably in the bed, in no acute distress . Skin: Warm, dry, no pallor, no rash or petechiae. HEENT: Atraumatic, normocephalic, EOMI, anicteric sclera B; pink conjunctiva; PERRLA, normal oropharynx, moist oral and nasal mucosa. Tympanic membrane , nose , throat clear. Positive for multiple dental decay, advanced gingivitis Neck: Trachea midline. Supple, full range of motion, no JVD, bruit , hepatojugular reflex , lymphadenopathy or masses, or other lesions Cardiac: Regular rhythm, regular rate no murmurs, rubs, or gallops. Normal S1 and S2, no S3 noticed. PMI is normal. Respiratory: Equal breath sounds bilaterally, no tachypnea; lungs clear to auscultation bilaterally, no wheezing ,rub or rales, or crackles. Chest wall is symmetric and without deformity. No signs of trauma. Chest wall is nontender. No signs of respiratory distress. Resonance is normal upon percussion bilaterally. Gastrointestinal: Abdomen symmetric, non-distended, soft, non-tender, normal bowel sounds x4 quadrant, normoactive, no hepatosplenomegaly , no masses , no bruit, no flank pain bilaterally. No voluntary guarding, rebound, or rigidity. No tenderness to percussion. No pulsatile masses. Equal femoral pulses. No Cabrera's sign or McBurney point tenderness. Back; no CVA tenderness bilaterally, no deformities. Neck and back are without deformity as well. No tenderness noted on palpation of the spinous processes. Spinous processes are midline. Cervical, thoracic, and lumbar paraspinal muscles are not tender and are without spasm. Musculoskeletal: Extremities, normal range of motion, non-tender, muscle strength 5/5 x 4. Negative Homans signs bilaterally on lower extremity. Distal pulses full symmetrical, no clubbing, cyanosis , edema. Neurological: Speech is clear, alert, and oriented x 4. No motor or sensory deficit, deep tendon reflexes normal, cerebellar intact. Cranial nerves II-XII intact. Psych: Alert and or appropriate, normal affect. Vascular: Good distal pulses, which are equal x4; capillary refill less than 2 seconds. Lymphatic, no lymphadenopathy. Result Diagram: 11/14/24 0656 11/14/24 0656 Coagulation Studies Laboratory Tests Test 11/11/24 11:35 11/12/24 17:28 11/14/24 13:44 Activated Partial Thromboplast Time 23 SECONDS (22-32) Prothrombin Time 11.3 SECONDS (9.0-12.0) INR International Normalized Ratio 1.1 INR APTT (Heparin Protocol) 63 SECONDS (45-60) H Coagulation Comments Problem\Assessment\Plan Assessment/plan # Acute pyelonephritis 2/2 hydronephrosis 2/2 nephrolithiasis # Severe sepsis 2/2 pyelonephritis # Metabolic acidosis, AGMA # Lactic acidosis # Postrenal MILVIA 2/2 nephrolithiasis # UTI # Hyperkalemia 2/2 MILVIA # NSTEMI -CT positive b/l nephrolithiasis, hydronephrosis, pyelonephritis, bicarb 8.3, pH 7.2, lactic acid 10-2.5, AG 24, sinus tachy, fever, procal 63, UA UTI +, Cr 4.42 GFR 10, with BUN/Cr 10 likely prolonged damage, no known hx CKD -3L bolus fluid resuscitation given & continuous LR; vancomycin, cefepime, prn acetaminophen, prn metoprolol for HR>120 given severe sepsis -repeat lactic acid, follow blood/urine culture, urine lytes -OR for b/l ureteral stent by Dr. Vee today; consulted ID Dr. Yeager, suzie w/treatment plan -11/12: troponins overnight uptrending, renal function improving but severely compromised; consulted by lower school spanish teacher, recommendation to be implemented, Consulted rn mds Dr. Funk. # NSTEMI # [place] s/p cardiac stent (2013, Dr. Friend) -has not been taking statin, only on aspirin at home -follow troponins, Lexiscan based on trop trend, heparin as indicated -11/12: uptrending trops, consulted Dr. Friend, Lexiscan positive, heparin drip started, prn nitroglycerin, continued on high-intensity statin, aspirin, metoprolol # Hx Trigeminal neuralgia Multiple dental severe decay, associated with severe gingivitis and acute dental pain # CVA - cannot exclude -new onset left-sided facial droop x 4days -CT head negative, start aspirin, statin, follow MRI, Teleneurology consult -11/12: MRI head/neck cannot be done for next 14 days due to b/l ureteral stent placement, will start cardiac heparin drip WO bolus DVT/VTE prophylaxis: heparin Code status: Full code Sepsis Screening Reassessment Date: Nov 14, 2024 Date of Service: Nov 14, 2024 Billing Provider: JULIA ANGEL MD Common Visit Codes: [id number] INP/OBS CARE(HIGH) JULIA ANGEL MD Nov 14, 2024 18:06
[2024-11-14] MEDS: HYDROcodone/acetaminophen 5mg/325mg tablet PO PRN (21:39)
[2024-11-14] MEDS: heparin, porcine 5000 units/ml vial SQ SCH (21:40)
[2024-11-14] MEDS: gabapentin 100mg capsule PO SCH (21:40)
[2024-11-14] MEDS: chlorhexidine gluconate 15ml Cup****oral rinse MM SCH (21:41)
[2024-11-15] VITALS (8 sets, daily range): BP systolic 125–166; BP diastolic 66–78; PULSE 72–80; RESP 13–20; TEMP 97.4–99.4; O2SAT 94–97
[2024-11-15] MEDS: morphine 2 MG/ML inj. syringe IV PRN (00:50)
[2024-11-15 07:02] LABS: BASOPHILS # (AUTO) 0.1 X10'3 (0-0.2); BASOPHILS % (AUTO) 0.7 % (0-1); EOSINOPHILS # (AUTO) 0.2 X10'3 (0-0.9); EOSINOPHILS % (AUTO) 2.6 % (0-6); HEMATOCRIT 33.3 % (35.0-45.0); HEMOGLOBIN 10.9 g/dl (12.0-16.0); LYMPHOCYTES # (AUTO) 1.3 X10'3 (1.1-4.8); LYMPHOCYTES % (AUTO) 14.2 % (21-51); MEAN CORPUSCULAR HEMOGLOBIN 31.2 PG (27.0-31.0); MEAN CORPUSCULAR HGB CONC 32.6 g/dL (33.0-36.5); MEAN CORPUSCULAR VOLUME 95.7 FL (78-98); MEAN PLATELET VOLUME 9.2 FL (7.4-10.4); NEUTROPHILS # (AUTO) 6.8 X10'3 (1.8-7.7); NEUTROPHILS % (AUTO) 71.5 % (42-75); PLATELET COUNT 171 X10'3 (140-440); RED BLOOD COUNT 3.48 X10'6 (4.20-5.60); RED CELL DISTRIBUTION WIDTH 15.1 % (11.5-14.5); WHITE BLOOD COUNT 9.4 X10'3 (4.5-11.0)
[2024-11-15 07:21] LABS: ALANINE AMINOTRANSFERASE 18 U/L (12-78); ALBUMIN/GLOBULIN RATIO 0.4 (1.1-1.5); ALKALINE PHOSPHATASE 58 IU/L (46-116); ANION GAP 10 (8-16); ASPARTATE AMINO TRANSFERASE 16 U/L (10-37); BILIRUBIN,TOTAL 0.4 MG/DL (0.1-1.0); BLOOD UREA NITROGEN 43 MG/DL (7-18); BUN/CREATININE RATIO 20.6 (10.0-20.0); CALCIUM 9.1 MG/DL (8.5-10.1); CHLORIDE 115 MMOL/L (99-107); CREATININE 2.09 MG/DL (0.40-0.90); GLUCOSE 107 MG/DL (70-104); MAGNESIUM 1.7 MG/DL (1.5-2.4); POTASSIUM 4.1 MMOL/L (3.5-5.1); SODIUM 143 MMOL/L (135-145); TOTAL CARBON DIOXIDE 17.9 MMOL/L (24-32); TOTAL PROTEIN 6.6 G/DL (6.4-8.2); eCRCL 21 ML/MIN; eGFR 23 ML/MIN
[2024-11-15] MEDS: clopidogrel 75mg tablet PO SCH (09:16)
[2024-11-15] MEDS: amLODIPine 5mg tablet PO SCH (09:23)
--- NOTE | 2024-11-15 09:56 | PROGRESS NOTE- Residence ---
Progress Note - Resident Providers to CC Resident Creating Document: OTTO ZAMARRIPA RES ~ Antibiotic Timeout Antibiotic Ordered?: Yes Subjective The patient was seen and examined at bedside today. The patient reported that he was doing well, denied any acute or new concerns or complaints. There were no overnight events reported. Objective Vital Signs Date Time Temp Pulse Resp B/P (MAP) Pulse Ox O2 Delivery O2 Flow Rate FiO2 11/15/24 09:23 80 11/15/24 06:00 97.9 13 125/72 (89) 94 Room Air 11/12/24 12:13 0.0 11/12/24 06:55 99 Result Diagram: 11/15/24 0643 11/15/24 0643 General: Awake and Alert, no acute distress. HEENT: Conjunctiva pink, Sclera clear, Mucus Membranes moist. Neck: Supple without masses and tenderness. Resp: Unlabored. Lungs clear to auscultation bilaterally. Heart: Regular Rate and rhythm, normal S1 and S2 without murmur, rub or gallop. Abdomen: Soft and non tender no organomegaly Extremities: No cyanosis,clubbing or edema. Skin: Warm and Dry. Neurology: No gross focal abnormalities noted. Coagulation Studies Laboratory Tests Test 11/11/24 11:35 11/12/24 17:28 11/14/24 13:44 Activated Partial Thromboplast Time 23 SECONDS (22-32) Prothrombin Time 11.3 SECONDS (9.0-12.0) INR International Normalized Ratio 1.1 INR APTT (Heparin Protocol) 63 SECONDS (45-60) H Coagulation Comments Assessment Assessment 79-year-old female with past medical history of coronary artery disease, nephrolithiasis is admitted in the hospital for evaluation and management of acute pyelonephritis, sepsis, postrenal MILVIA. Plan Plan Nephrology progress note: Acute kidney injury -postrenal MILVIA Obstructive uropathy due to bilateral nephrolithiasis Status post cystoscopy, bilateral ureteral stent placement on 11/11/2024 Sepsis secondary to acute pyelonephritis Lactic acidosis-resolved The patient's acute kidney injury is 2/2 postrenal MILVIA due to the bilateral renal stones. The patient's renal function has been improving significantly. The BUN and creatinine today are 43 and 2.09 respectively. The patient continues to have good urinary output. Continue straight input and output monitoring. Maintain balance between the patient's input and output and avoid negative fluid balance to avoid dehydration and further renal impairment. The patient's cirrhosis is improving. Continue to monitor renal function tests and electrolytes. Continue current IV antibiotics. Appreciate Infectious Disease consultation and recommendation. Hyperkalemia-resolved Continue to monitor the patient's electrolytes closely. Type 2 [place] versus NSTEMI Cardiac stress test positive for reversible ischemia. Management as per the brazer controlled atmospheric furnace. Facial pain most likely neuropathic Possible underlying acute versus chronic CVA Patient was supposed to get a MRI for further evaluation of any underlying stroke. She can not get one until she completes 14 days a post ureteral stents. Follow up as per Neurology recommendations. Otto Zamarripa MD Internal Medicine Resident, PGY-2 Date of Service: Nov 15, 2024 Billing Provider: QUANG JOHNSON III, SURYA PRATIK, RES Nov 15, 2024 09:56
--- NOTE | 2024-11-15 11:25 | PROGRESS NOTE- Residence ---
Progress Note - Resident Providers to CC Resident Creating Document: LIZZ MARCUM, RES ~ Antibiotic Timeout Antibiotic Ordered?: No Subjective Patient was seen and examined at bedside today. She has no new complaints. Her heparin drip has been discontinued and she is currently on aspirin and Plavix. Her kidney function is getting better. Objective Vital Signs Date Time Temp Pulse Resp B/P (MAP) Pulse Ox O2 Delivery O2 Flow Rate FiO2 11/15/24 09:23 80 11/15/24 08:00 Room Air 0.0 21 11/15/24 06:00 97.9 13 125/72 (89) 94 Result Diagram: 11/15/24 0643 11/15/24 0643 Elderly female, alert and oriented x4, not in acute distress Head: Normocephalic with an atraumatic Eyes: Pupils- 3mm, reacting to light, conjunctiva- anicteric Nose and throat: No polyps, septum- normal, no mucosal ulcers Neck: Supple, no lymphadenopathy, no carotid bruit Respiratory: No use of accessory muscles of respiration, Bilateral normal vesicular breath sounds heard. No wheeze, rhochi or creps Cardiac: S1-S2 heard, rhythm regular, no gallop/murmur Abdomen: non distended, no tenderness, no organomegaly, bowel sounds - heard Extremities: no clubbing, no deformities, peripheral pulses - 2+ Skin: warm and dry, no rash, no purpura Neuro: No focal deficit, gross cranial nerve exam - normal Coagulation Studies Laboratory Tests Test 11/11/24 11:35 11/12/24 17:28 11/14/24 13:44 Activated Partial Thromboplast Time 23 SECONDS (22-32) Prothrombin Time 11.3 SECONDS (9.0-12.0) INR International Normalized Ratio 1.1 INR APTT (Heparin Protocol) 63 SECONDS (45-60) H Coagulation Comments Plan Plan Elevated troponins likely secondary to Non Q wave [place] No history of angina or associated symptoms. Elevated troponins and positive stress test - small reversible defect in distal anterolateral wall and large fixed defect in the basal to mid inferolateral wall. No wall motion abnormalities. Heparin drip discontinued. Continue dual antiplatelet therapy with aspirin and Plavix. Risks and benefits discussed with the patient and her daughter Raisa. Agreed with conservative management. Continue metoprolol succinate 50 mg daily and atorvastatin 80 mg daily. Continue follow up with Dr. Gayle outpatient setting. Acute exacerbation of diastolic CHF EF 70%. ProBNP 28K. Also secondary to CKD. Decreased the fluid rate to 75 ml/hr. Keep the patient euvolemic. Lasix not recommended in the setting of MILVIA. Strict input and output monitoring. Daily weights. Hypertension Continue metoprolol succinate 50 mg once daily and amlodipine 10 mg daily. History of cardiac stenting in 2013 to mid CX/OM Recommended follow up in outpatient setting. Moderate mitral regurgitation Pulmonary hypertension Sepsis Pyelonephritis Bilateral ureteral stenting Post renal MILVIA Rule out CVA Continue management as per urologist and hospitalist. 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 CT negative. MRI unable to perform because of ureteral stents. Continue follow up with neurologist. Lizz Marcum MD Internal Medicine Resident, PGY-1 Patient seen and examined this morning by Dr. Ángela HERNANDEZ. All cardiac questions answered. At this time continue medical therapy and follow up with me for further cardiac evaluation. Patient's neurologic and renal conditions and general medical problems being addressed by hospitalist and gill net stringer. Date of Service: Nov 15, 2024 Billing Provider: ZACHARY GAYLE MD,LIZZ DWYER, RES Nov 15, 2024 11:25 ZACHARY GAYLE MD Nov 15, 2024 16:33
[2024-11-15] MEDS: amLODIPine 5mg tablet PO ONE (12:39)
--- NOTE | 2024-11-15 14:54 | [facility] CONSULT REPORT ---
[facility] Procedure Note [facility] Procedure Note Consult [facility] Note # Demographics Consult Type: General Neurology Patient Location: Inpatient First Name: Neela Last Name: Dahiana Date of : 1945 Age: 79 Gender: Female Facility: [facility] Time of Initial Page (): 11/15/2024 14:28 Time of Return Call (): 11/15/2024 14:28 # HPI History: 79yof who p/w pyelonephritis and L facial droop that started several days ago. # Scores Time of exam and NIHSS (): 11/15/2024 14:38 Level of Consciousness 1a: [1] = Not alert; but arousable by minor stim LOC Questions 1b: [2] = Answers neither correctly LOC Commands 1c: [0] = Performs both tasks correctly Best Gaze 2: [0] = Normal Visual 3: [0] = No visual loss Facial Palsy 4: [0] = Normal symmetrical movements Motor Arm Left 5a: [0] = No drift Motor Arm Right 5b: [0] = No drift Motor Leg Left 6a: [0] = No drift Motor Leg Right 6b: [0] = No drift Limb Ataxia 7: [0] = Absent Sensory 8: [0] = Normal Best Language 9: [0] = No aphasia Dysarthria 10: [2] = Severe dysarthria Extinction and Inattention 11: [0] = No abnormality NIHSS Total: 5 # Assessment Impression: Unable to get MRI, can get repeat CTH now to see if any development of any further hypodensities that would explain stroke. Seems that her primary complaint is actually the pain associated with her left face which seems c/w trigeminal neuralgia. She is currently on gabapentin 100mg BID which appears to be renally dosed. Can increase to 300mg BID if OK by pharmacy, if no increase in gabapentin could add tegretol 400mg BID # Plan Imaging: (urgency: routine): Repeat CTH if unable to get MRI Ideally would also have vessel imaging, either CTA or MRA head and neck but this can be deferred until renal function improves Diagnostic Test: - echo with bubble study telemetry monitoring for a fib Medication: - aspirin 81 mg daily - start statin with goal of LDL < 70 Other: - If patient has any neurological deterioration please call me back immediately # Demographics First Name: Neela Last Name: Dahiana Facility: [facility] Neuro Consult Order placed for: Yes LILIAN BA MD Nov 15, 2024 14:54
--- NOTE | 2024-11-15 16:49 | PROGRESS NOTE ---
Daily Progress Note Providers to CC ~ no new complaint today resting comfortably in the bed still in pain secondary to left face maxilla pain Central Line/PICC still needed: No Chavez-Non Protocol Chavez Indications Met/Not Met: F/C Indications Not Met Antibiotic Timeout Antibiotic Ordered?: Yes MRSA Education MRSA Education Provided to pt: Yes Subjective As above Objective Vital Signs Date Time Temp Pulse Resp B/P (MAP) Pulse Ox O2 Delivery O2 Flow Rate FiO2 11/15/24 15:00 97.8 75 18 165/78 (107) 94 Room Air 11/15/24 08:00 0.0 21 Vital signs, stable ,afebrile. Pulse Oximetry reflects adequate oxygenation. General: well developed, well nourished. Awake , alert, and oriented x4, resting comfortably in the bed, in no acute distress . Skin: Warm, dry, no pallor, no rash or petechiae. HEENT: Atraumatic, normocephalic, EOMI, anicteric sclera B; pink conjunctiva; PERRLA, normal oropharynx, moist oral and nasal mucosa. Tympanic membrane , nose , throat clear. Neck: Trachea midline. Supple, full range of motion, no JVD, bruit , hepatojugular reflex , lymphadenopathy or masses, or other lesions Cardiac: Regular rhythm, regular rate no murmurs, rubs, or gallops. Normal S1 and S2, no S3 noticed. PMI is normal. Respiratory: Equal breath sounds bilaterally, no tachypnea; lungs clear to auscultation bilaterally, no wheezing ,rub or rales, or crackles. Chest wall is symmetric and without deformity. No signs of trauma. Chest wall is nontender. No signs of respiratory distress. Resonance is normal upon percussion bilaterally. Gastrointestinal: Abdomen symmetric, non-distended, soft, non-tender, normal bowel sounds x4 quadrant, normoactive, no hepatosplenomegaly , no masses , no bruit, no flank pain bilaterally. No voluntary guarding, rebound, or rigidity. No tenderness to percussion. No pulsatile masses. Equal femoral pulses. No Cabrera's sign or McBurney point tenderness. Back; no CVA tenderness bilaterally, no deformities. Neck and back are without deformity as well. No tenderness noted on palpation of the spinous processes. Spinous processes are midline. Cervical, thoracic, and lumbar paraspinal muscles are not tender and are without spasm. Musculoskeletal: Extremities, normal range of motion, non-tender, muscle strength 5/5 x 4. Negative Homans signs bilaterally on lower extremity. Distal pulses full symmetrical, no clubbing, cyanosis , edema. Neurological: Speech is clear, alert, and oriented x 4. No motor or sensory deficit, deep tendon reflexes normal, cerebellar intact. Cranial nerves II-XII intact. Psych: Alert and or appropriate, normal affect. Vascular: Good distal pulses, which are equal x4; capillary refill less than 2 seconds. Lymphatic, no lymphadenopathy. Result Diagram: 11/15/24 0643 11/15/24 0643 Coagulation Studies Laboratory Tests Test 11/11/24 11:35 11/12/24 17:28 11/14/24 13:44 Activated Partial Thromboplast Time 23 SECONDS (22-32) Prothrombin Time 11.3 SECONDS (9.0-12.0) INR International Normalized Ratio 1.1 INR APTT (Heparin Protocol) 63 SECONDS (45-60) H Coagulation Comments Problem\Assessment\Plan Assessment/plan # Acute pyelonephritis 2/2 hydronephrosis 2/2 nephrolithiasis # Severe sepsis 2/2 pyelonephritis # Metabolic acidosis, AGMA # Lactic acidosis # Postrenal MILVIA 2/2 nephrolithiasis # UTI # Hyperkalemia 2/2 MILVIA # NSTEMI -CT positive b/l nephrolithiasis, hydronephrosis, pyelonephritis, bicarb 8.3, pH 7.2, lactic acid 10-2.5, AG 24, sinus tachy, fever, procal 63, UA UTI +, Cr 4.42 GFR 10, with BUN/Cr 10 likely prolonged damage, no known hx CKD -3L bolus fluid resuscitation given & continuous LR; vancomycin, cefepime, prn acetaminophen, prn metoprolol for HR>120 given severe sepsis -repeat lactic acid, follow blood/urine culture, urine lytes -OR for b/l ureteral stent by Dr. Vee today; consulted ID Dr. Yeager, agrees w/treatment plan -11/12: troponins overnight uptrending, renal function improving but severely compromised; consulted by medical voucher clerk, recommendation to be implemented, Consulted prototype sewer Dr. Funk. # NSTEMI # [place] s/p cardiac stent (2013, Dr. Friend) -has not been taking statin, only on aspirin at home -follow troponins, Lexiscan based on trop trend, heparin as indicated -11/12: uptrending trops, consulted Dr. Friend, Lexiscan positive, heparin drip started, prn nitroglycerin, continued on high-intensity statin, aspirin, metoprolol # Hx Trigeminal neuralgia Multiple dental severe decay, associated with severe gingivitis and acute dental pain # CVA - cannot exclude CT of the head today , according to recommendation of neurologist consultation today -new onset left-sided facial droop x 4days -CT head negative, start aspirin, statin, -11/12: MRI head/neck cannot be done for next 14 days due to b/l ureteral stent placement, DVT/VTE prophylaxis: heparin Code status: Full code Sepsis Screening Reassessment Date: Nov 15, 2024 Date of Service: Nov 15, 2024 Billing Provider: JULIA ANGEL MD Common Visit Codes: [id number] INP/OBS CARE(HIGH) JULIA ANGEL MD Nov 15, 2024 16:49
--- NOTE | 2024-11-15 17:46 | RADIOLOGY REPORT ---
EXAM: CT CT HEAD; DATE: 11/15/2024 05:14 PM HISTORY: cva COMPARISON: CT CT HEAD on DOS: 11/11/24 TECHNIQUE: Axial images were obtained and reformatted in coronal and sagittal planes. All CT scans at this medical facility are performed using dose modulation techniques as appropriate to a performed e xam including the following: Automated exposure control was utilized; adjustment of the MA and/or KV according to patient size; and use of iterative reconstruction technique. CT Dose: CTDI volume is 54 mGy. Dose-length product is 1034 mGy*cm FINDINGS: Supratentorial Region: No evidence for large acute territorial ischemia. No intracranial hemorrhage is noted. Confluent white matter hypoattenuating foci are noted bilaterally, which typically reflect chronic microvascular ischemic changes. Posterior Fossa: No acute abnormality. Brainstem: Unremarkable. Sellar/Suprasellar Region: Unremarkable. Ventricles, Cisterns, Sulci: Age-appropriate. Orbits: Unremarkable. Paranasal Sinuses: Unremarkable. Mastoid Air Cells: Unremarkable. Vasculature: Unremarkable. Bones/Soft Tissues: No acute abnormality. Other: None. IMPRESSION: 1. No acute intracranial process.
[2024-11-16 02:00] VITALS: BP 159/77; PULSE 74; RESP 18; TEMP 97.7; O2SAT 96
[2024-11-16 06:28] LABS: BASOPHILS # (AUTO) 0.1 X10'3 (0-0.2); BASOPHILS % (AUTO) 1.2 % (0-1); EOSINOPHILS # (AUTO) 0.3 X10'3 (0-0.9); EOSINOPHILS % (AUTO) 3.6 % (0-6); HEMOGLOBIN 10.9 g/dl (12.0-16.0); LYMPHOCYTES # (AUTO) 1.3 X10'3 (1.1-4.8); LYMPHOCYTES % (AUTO) 13.8 % (21-51); MEAN CORPUSCULAR HEMOGLOBIN 31.2 PG (27.0-31.0); MEAN CORPUSCULAR VOLUME 94.6 FL (78-98); MEAN PLATELET VOLUME 9.5 FL (7.4-10.4); MONOCYTES % (AUTO) 11.2 % (2-12); NEUTROPHILS # (AUTO) 6.5 X10'3 (1.8-7.7); NEUTROPHILS % (AUTO) 70.2 % (42-75); PLATELET COUNT 177 X10'3 (140-440); RED BLOOD COUNT 3.49 X10'6 (4.20-5.60); WHITE BLOOD COUNT 9.3 X10'3 (4.5-11.0)
[2024-11-16 06:55] LABS: ALANINE AMINOTRANSFERASE 21 U/L (12-78); ALBUMIN/GLOBULIN RATIO 0.5 (1.1-1.5); ALKALINE PHOSPHATASE 55 IU/L (46-116); ANION GAP 14 (8-16); ASPARTATE AMINO TRANSFERASE 11 U/L (10-37); BILIRUBIN,TOTAL 0.4 MG/DL (0.1-1.0); BLOOD UREA NITROGEN 37 MG/DL (7-18); CALCIUM 9.4 MG/DL (8.5-10.1); CHLORIDE 116 MMOL/L (99-107); CREATININE 1.95 MG/DL (0.40-0.90); GLUCOSE 93 MG/DL (70-104); SODIUM 148 MMOL/L (135-145); TOTAL CARBON DIOXIDE 18.1 MMOL/L (24-32); TOTAL PROTEIN 6.3 G/DL (6.4-8.2); eCRCL 22 ML/MIN; eGFR 25 ML/MIN
[2024-11-16] MEDS: amLODIPine 5mg tablet PO SCH (08:28)
--- NOTE | 2024-11-16 09:29 | PROGRESS NOTE- Residence ---
Progress Note - Resident Providers to CC Resident Creating Document: OTTO ZAMARRIPA AMALIA RODRIGUEZ ~ Antibiotic Timeout Antibiotic Ordered?: Yes Subjective Patient was seen and examined at bedside today. She has no new complaints. The patient's renal function is improving significantly. No acute overnight events were reported. Objective Vital Signs Date Time Temp Pulse Resp B/P (MAP) Pulse Ox O2 Delivery O2 Flow Rate FiO2 11/16/24 08:28 70 11/16/24 02:00 97.7 18 159/77 (104) 96 Room Air 11/15/24 20:00 0.0 11/15/24 08:00 21 Result Diagram: 11/16/24 0541 11/16/24 0541 General: Awake and Alert, no acute distress. HEENT: Conjunctiva pink, Sclera clear, Mucus Membranes moist. Neck: Supple without masses and tenderness. Resp: Unlabored. Lungs clear to auscultation bilaterally. Heart: Regular Rate and rhythm, normal S1 and S2 without murmur, rub or gallop. Abdomen: Soft and non tender no organomegaly Extremities: No cyanosis,clubbing or edema. Skin: Warm and Dry. Neurology: No gross focal abnormalities noted. Coagulation Studies Laboratory Tests Test 11/11/24 11:35 11/12/24 17:28 11/14/24 13:44 Activated Partial Thromboplast Time 23 SECONDS (22-32) Prothrombin Time 11.3 SECONDS (9.0-12.0) INR International Normalized Ratio 1.1 INR APTT (Heparin Protocol) 63 SECONDS (45-60) H Coagulation Comments Assessment Assessment 79-year-old female with past medical history of coronary artery disease, nephrolithiasis is admitted in the hospital for evaluation and management of acute pyelonephritis, sepsis, postrenal MILVIA Plan Plan Nephrology progress note: Acute kidney injury -postrenal MILVIA Obstructive uropathy due to bilateral nephrolithiasis Status post cystoscopy, bilateral ureteral stent placement on 11/11/2024 Sepsis secondary to acute pyelonephritis Lactic acidosis-resolved The patient's acute kidney injury is 2/2 postrenal MILVIA due to the bilateral renal stones. The patient's renal function has improved significantly since the time of her admission after postrenal obstruction was cleared. Continue strict input and output monitoring. Maintain balance between the patient's input and output and avoid negative fluid balance to avoid dehydration and further renal impairment. The Nephrology team will sign off on the patient. Advised the patient to follow up at the office in 2-3 weeks after discharge to check for renal recovery. Hyperkalemia-resolved Continue to monitor the patient's electrolytes closely. Type 2 TN versus NSTEMI Cardiac stress test positive for reversible ischemia. Management as per the nursing officer. Facial pain most likely neuropathic Possible underlying acute versus chronic CVA Patient was supposed to get a MRI for further evaluation of any underlying stroke. She can not get one until she completes 14 days a post ureteral stents. Follow up as per Neurology recommendations. Per Neurology recommendation the patient can be started on Tegretol as pain looks most likely due to trigeminal neuralgia. She continues to do well, creatinine improving daily, back to near her baseline function, we will sign off today thank you for allowing us to dissipate the care of this patient, if we can be of further assistance please do not hesitate to call us at any time Otto Zamarripa MD Internal Medicine Resident, PGY-2 Date of Service: Nov 16, 2024 Billing Provider: QUANG JOHNSON III, SURYA PRATIK, RES Nov 16, 2024 09:29 QUANG JOHNSON III, DO Nov 16, 2024 16:04
[2024-11-16 10:00] VITALS: BP 167/67; PULSE 62; RESP 16; TEMP 97.4; O2SAT 94
--- NOTE | 2024-11-16 10:42 | PROGRESS NOTE ---
Progress Note Dictate Providers to CC ~ Subjective Subjective: She continues to deal with severe sharp pain at left nasolabial fold area. He is otherwise doing okay. No fever. Objective Objective: GENERAL: Elderly female, currently sitting up in bed looking stable but very reluctant to move her face HEENT: No rash at face. She does have some teeth remaining. LUNGS: Clear to auscultation bilaterally. HEART: Regular rate and rhythm. ABDOMEN: Obese and soft without significant tenderness. EXTREMITIES: Without significant edema. Lab Results: 11/16/24 0541 11/16/24 0541 Lab comments: E coli susceptibilities could not be performed Problem\Assessment\Plan Additional Plan 1. Severe sepsis with acute kidney injury - renal function improving 2. E. coli sepsis related to urinary tract infection 3. Complicated urinary tract infection with suspected pyelonephritis 4. Nephrolithiasis with obstructing ureteral stone bilaterally status post ureteral stent placement bilaterally 5. Facial pain of unclear etiology that appears to have a neuropathic component - ?Trigeminal neuralgia involving branch of the maxillary nerve (V2) Continue ceftriaxone Transition to oral therapy when closer to discharge Increase gabapentin to 200mg BID CINDA BUCHANAN MD Nov 16, 2024 10:42
[2024-11-16] MEDS: gabapentin 100mg capsule PO ONE (12:18)
[2024-11-16 12:27] LABS: PRO BRAIN NATRIURETIC PEPTIDE 20012 PG/ML (0-450)
[2024-11-16] MEDS ORDERED: HYDR-3965 PO (13:04)
[2024-11-16] MEDS ORDERED: LEVO-65 PO (13:04)
[2024-11-16] MEDS ORDERED: OMEP20TA23 PO (13:08)
--- NOTE | 2024-11-16 13:34 | PROGRESS NOTE- Residence ---
Progress Note - Resident Providers to CC Resident Creating Document: LIZZ MARCUM, RES ~ Antibiotic Timeout Antibiotic Ordered?: No Subjective The patient was seen and examined at bedside today. She says that she's unable to talk. Repeat head CT negative. No other complaints. No chest pain, pressure or shortness of breath. Objective Vital Signs Date Time Temp Pulse Resp B/P (MAP) Pulse Ox O2 Delivery O2 Flow Rate FiO2 11/16/24 10:00 97.4 62 16 167/67 (100) 94 Room Air 11/16/24 08:00 0.0 21 Result Diagram: 11/16/24 0541 11/16/24 0541 Elderly female, alert and oriented x4, not in acute distress Head: Normocephalic with an atraumatic Eyes: Pupils- 3mm, reacting to light, conjunctiva- anicteric Nose and throat: No polyps, septum- normal, no mucosal ulcers Neck: Supple, no lymphadenopathy, no carotid bruit Respiratory: No use of accessory muscles of respiration, Bilateral normal vesicular breath sounds heard. No wheeze, rhochi or creps Cardiac: S1-S2 heard, rhythm regular, no gallop/murmur Abdomen: non distended, no tenderness, no organomegaly, bowel sounds - heard Extremities: no clubbing, no deformities, peripheral pulses - 2+ Skin: warm and dry, no rash, no purpura Neuro: No focal deficit, gross cranial nerve exam - normal Coagulation Studies Laboratory Tests Test 11/11/24 11:35 11/12/24 17:28 11/14/24 13:44 Activated Partial Thromboplast Time 23 SECONDS (22-32) Prothrombin Time 11.3 SECONDS (9.0-12.0) INR International Normalized Ratio 1.1 INR APTT (Heparin Protocol) 63 SECONDS (45-60) H Coagulation Comments Plan Plan Elevated troponins likely secondary to Non Q wave [place] No history of angina or associated symptoms. Elevated troponins and positive stress test - small reversible defect in distal anterolateral wall and large fixed defect in the basal to mid inferolateral wall. No wall motion abnormalities. Heparin drip discontinued. Continue dual antiplatelet therapy with aspirin and Plavix. Risks and benefits discussed with the patient and her daughter Raisa. Agreed with conservative management. Continue metoprolol succinate 50 mg daily and atorvastatin 80 mg daily. Continue follow up with Dr. Gayle outpatient setting. Acute exacerbation of diastolic CHF EF 70%. ProBNP 28K, trended down to 20K. Also secondary to CKD. Decreased the fluid rate to 50 ml/hr. Patient does not have good oral intake. Nephrology recommended to continue fluids until the oral intake improves. Keep the patient euvolemic. Lasix not recommended in the setting of MILVIA. Strict input and output monitoring. Daily weights. Hypertension Continue metoprolol succinate 50 mg once daily and amlodipine 10 mg daily. History of cardiac stenting in 2013 to CX/OM Recommended follow up in outpatient setting. Moderate mitral regurgitation Pulmonary hypertension Sepsis Pyelonephritis Bilateral ureteral stenting Post renal MILVIA Rule out CVA Continue management as per urologist and hospitalist. Patient has right sided facial weakness and minimal weakness of her right hand mail censor. CT negative. MRI unable to perform because of ureteral stents. Repeat CT head negative for any acute abnormalities. Continue follow up with neurologist. Lizz Marcum MD Internal Medicine Resident, PGY-1 Patient seen and examined by Dr. Ángela HERNANDEZ. Patient renal function is getting better. Patient continues to have left facial pain. Continue CAD with medical therapy. Patient to follow up with me as an outpatient to decide any further evaluations for CAD in future. Date of Service: Nov 16, 2024 Billing Provider: ZACHARY GAYLE MD, SOWMYA MANJARI, RES Nov 16, 2024 13:34 ZACHARY GAYLE MD Nov 16, 2024 14:01
--- NOTE | 2024-11-16 19:23 | DISCHARGE SUMMARY ---
Discharge Summary Providers to Feel better today, eager to be discharged home ~ Discharge Summary Assessment # Acute pyelonephritis 2/2 hydronephrosis 2/2 nephrolithiasis Status post bilateral ureter stent placement # Severe sepsis 2/2 pyelonephritis # Metabolic acidosis, AGMA # Lactic acidosis # Postrenal MILVIA 2/2 nephrolithiasis # UTI # Hyperkalemia 2/2 MILVIA History of [place] s/p cardiac stent (2013, Dr. Friend) Hx Trigeminal neuralgia Multiple dental decay associated with severe left side facial pain Admission Diagnosis: Acute pyelonephritis, nephrolithiasis Admission Diagnosis Comment: # Acute pyelonephritis 2/2 hydronephrosis 2/2 nephrolithiasis Status post bilateral ureter stent placement # Severe sepsis 2/2 pyelonephritis # Metabolic acidosis, AGMA # Lactic acidosis # Postrenal MILVIA 2/2 nephrolithiasis # UTI # Hyperkalemia 2/2 MILVIA History of [place] s/p cardiac stent (2013, Dr. Friend) Hx Trigeminal neuralgia Multiple dental decay associated with severe left side facial pain Hospital Course DATE OF ADMISSION: November 11, 2024 DATE OF DISCHARGE: November 16, 2024 Discharge Diagnosis\Comment: # Acute pyelonephritis 2/2 hydronephrosis 2/2 nephrolithiasis Status post bilateral ureter stent placement # Severe sepsis 2/2 pyelonephritis # Metabolic acidosis, AGMA # Lactic acidosis # Postrenal MILVIA 2/2 nephrolithiasis # UTI # Hyperkalemia 2/2 MILVIA History of [place] s/p cardiac stent (2013, Dr. Friend) Hx Trigeminal neuralgia Multiple dental decay associated with severe left side facial pain Operations\Procedures: Bilateral ureter stent placement by urologist Consultants: Urologist , infectious disease doctor, cardiology , Complications: None Condition on DC: Stable Discharge Summary: Neela Talbot is a 79-year-old female with a past medical history significant for nephrolithiasis and subsequent pyelonephritis, s/p ureteral stent in 2013, [place] s/p cardiac stent in 2013, trigeminal neuralgia who was brought to the ED with chief complaints of acute onset generalized weakness, decreased appetite, nausea, and vomiting x 1 day. Patient denies CVA, cardiac arrhythmia, DVT/PE, or GIB. Patient denies pain with urination, urinary frequency/urgency, chest pain, palpitations, shortness of breath, abdominal pain, diarrhea. Patient was examined in the presence of her daughter. Per daughter, patient developed left- sided facial droop 4 days ago which has happened to patient in the past but developed again. Initial diagnostic findings were notable for elevated lactic acid, metabolic acidosis, abnormal renal function, urinalysis indicating urinary tract infection, CT indicating nephrolithiasis in right and left ureter and pyelonephritis. On-call urologist Dr. Vee was consulted. Patient is to be taken to OR for bilateral ureteral stent placement. After admission patient was extensively evaluated and treated today she is feeling fine asking to be discharged home she will be discharged in stable condition medication reconciled, follow-up with Cardiology Urology infectious disease doctor and dentist in the morning, sent to emergency department if condition worsens, today on physical exam Vital signs, stable ,afebrile. Pulse Oximetry reflects adeq uate oxygenation. General: well developed, well nourished. Awake , alert, and oriented x4, resting comfortably in the bed, in no acute distress . Skin: Warm, dry, no pallor, no rash or petechiae. HEENT: Atraumatic, normocephalic, EOMI, anicteric sclera B; pink conjunctiva; PERRLA, normal oropharynx, moist oral and nasal mucosa. Tympanic membrane , nose , throat clear. Multiple tooth decay associated with left side of the face pain Neck: Trachea midline. Supple, full range of motion, no JVD, bruit , hepatojugular reflex , lymphadenopathy or masses, or other lesions Cardiac: Regular rhythm, regular rate no murmurs, rubs, or gallops. Normal S1 and S2, no S3 noticed. PMI is normal. Respiratory: Equal breath sounds bilaterally, no tachypnea; lungs clear to auscultation bilaterally, no wheezing ,rub or rales, or crackles. Chest wall is symmetric and without deformity. No signs of trauma. Chest wall is nontender. No signs of respiratory distress. Resonance is normal upon percussion bilaterally. Gastrointestinal: Abdomen symmetric, non-distended, soft, non-tender, normal bowel sounds x4 quadrant, normoactive, no hepatosplenomegaly , no masses , no bruit, no flank pain bilaterally. No voluntary guarding, rebound, or rigidity. No tenderness to percussion. No pulsatile masses. Equal femoral pulses. No Cabrera's sign or McBurney point tenderness. Back; no CVA tenderness bilaterally, no deformities. Neck and back are without deformity as well. No tenderness noted on palpation of the spinous processes. Spinous processes are midline. Cervical, thoracic, and lumbar paraspinal muscles are not tender and are without spasm. Musculoskeletal: Extremities, normal range of motion, non-tender, muscle strength 5/5 x 4. Negative Homans signs bilaterally on lower extremity. Distal pulses full symmetrical, no clubbing, cyanosis , edema. Neurological: Speech is clear, alert, and oriented x 4. No motor or sensory deficit, deep tendon reflexes normal, cerebellar intact. Cranial nerves II-XII intact. Psych: Alert and or appropriate, normal affect. Vascular: Good distal pulses, which are equal x4; capillary refill less than 2 seconds. Lymphatic, no lymphadenopathy. *Problems/Diagnosis: (1) Hydronephrosis with urinary obstruction due to renal calculus Status: Chronic Total Time Spent on D/C: > 30 Minutes Date of Service: Nov 16, 2024 Billing Provider: JULIA ANGEL MD Common Visit Codes: 94001-AVF/OBS DISCH DAY >30min JULIA ANGEL MD Nov 16, 2024 19:23
[2024-11-16] MEDS ORDERED: gabapentin 100mg capsule PO SCH (20:00)
== END 2024-11-16 15:52 | disposition home or self-care (01) | DRG 853 ==
LOC: ER 11:15 → ED HOLD 16:58 → PACU 18:41 → PCU 3S 19:50
PROVIDERS: ADMIT Nurse Practitioner Family; ATTEND Nurse Practitioner Family
PROC: BT141ZZ Fluoroscopy of Kidneys, Ureters and Bladder using Low Osmolar Contrast (ICD-10-PCS; 2024-11-11)
PROC: 0T788DZ Dilation of Bilateral Ureters with Intraluminal Device, Via Natural or Artificial Opening Endoscopic (ICD-10-PCS; principal; 2024-11-11 17:56)
PROC: 4A02XM4 Measurement of Cardiac Total Activity, External Approach (ICD-10-PCS; 2024-11-12)
PROC: 3E033HZ Introduction of Radioactive Substance into Peripheral Vein, Percutaneous Approach (ICD-10-PCS; 2024-11-12)
DX: A41.9 Sepsis, unspecified organism (principal); I21.4 Non-ST elevation (NSTEMI) myocardial infarction; I50.33 Acute on chronic diastolic (congestive) heart failure; N13.6 Pyonephrosis; E87.20 Acidosis, unspecified; N17.9 Acute kidney failure, unspecified; I11.0 Hypertensive heart disease with heart failure; K05.10 Chronic gingivitis, plaque induced; K02.9 Dental caries, unspecified; E87.5 Hyperkalemia; E78.5 Hyperlipidemia, unspecified; I25.10 Atherosclerotic heart disease of native coronary artery without angina pectoris; R65.20 Severe sepsis without septic shock; I34.0 Nonrheumatic mitral (valve) insufficiency; K21.9 Gastro-esophageal reflux disease without esophagitis; Z88.0 Allergy status to penicillin; Z79.899 Other long term (current) drug therapy; Z90.49 Acquired absence of other specified parts of digestive tract; Z87.891 Personal history of nicotine dependence; Z90.710 Acquired absence of both cervix and uterus; Z95.5 Presence of coronary angioplasty implant and graft; G50.0 Trigeminal neuralgia
CPT/HCPCS: 36415; 70450; 70486; 71045; 74176; 74420; 78452; 80048; 80053; 80061; 80202; 81001; 82570; 82800; 82948; 83036; 83605; 83735; 83880; 84133; 84145; 84156; 84300; 84443; 84484; 84540; 85007; 85025; 85610; 85730; 87040; 87077; 87081; 87088; 92508; 92616; 93005; 93017; 93306; 96361; 96365; 96367; 96368; 97161; 97530; 97535; 99291; A4314; A4618; A6212; A6213; A6250; A6258; A6449; A9500; C1758; C1769; C2617; G0378; J0131; J0360; J0692; J0696; J1100; J1644; J1815; J2250; J2270; J2371; J2405; J2704; J2785; J3010; J3372; J3490; J7030; J7120; Q9967

== ENCOUNTER 2024-12-18 09:58 | Day surgery (SDC) | payer MEDICARE ==
[2024-12-14 15:25] LABS: BASOPHILS # (AUTO) 0.1 X10'3 (0-0.2); BASOPHILS % (AUTO) 1.2 % (0-1); EOSINOPHILS # (AUTO) 0.4 X10'3 (0-0.9); EOSINOPHILS % (AUTO) 4.5 % (0-6); HEMATOCRIT 40.5 % (35.0-45.0); HEMOGLOBIN 13.1 g/dl (12.0-16.0); LYMPHOCYTES # (AUTO) 2.1 X10'3 (1.1-4.8); LYMPHOCYTES % (AUTO) 26.7 % (21-51); MEAN CORPUSCULAR HEMOGLOBIN 30.8 PG (27.0-31.0); MEAN CORPUSCULAR HGB CONC 32.3 g/dL (33.0-36.5); MEAN CORPUSCULAR VOLUME 95.5 FL (78-98); MEAN PLATELET VOLUME 10.3 FL (7.4-10.4); MONOCYTES # (AUTO) 0.7 X10'3 (0-0.9); MONOCYTES % (AUTO) 8.8 % (2-12); NEUTROPHILS # (AUTO) 4.6 X10'3 (1.8-7.7); NEUTROPHILS % (AUTO) 58.8 % (42-75); PLATELET COUNT 210 X10'3 (140-440); RED BLOOD COUNT 4.24 X10'6 (4.20-5.60); RED CELL DISTRIBUTION WIDTH 16.3 % (11.5-14.5); WHITE BLOOD COUNT 7.8 X10'3 (4.5-11.0)
[2024-12-14 15:40] LABS: ALANINE AMINOTRANSFERASE 20 U/L (12-78); ALBUMIN 3.2 G/DL (3.4-5.0); ALBUMIN/GLOBULIN RATIO 0.7 (1.1-1.5); ALKALINE PHOSPHATASE 61 IU/L (46-116); ANION GAP 11 (8-16); ASPARTATE AMINO TRANSFERASE 18 U/L (10-37); BILIRUBIN,TOTAL 0.4 MG/DL (0.1-1.0); BLOOD UREA NITROGEN 26 MG/DL (7-18); BUN/CREATININE RATIO 12.3 (10.0-20.0); CALCIUM 11.5 MG/DL (8.5-10.1); CHLORIDE 108 MMOL/L (99-107); CREATININE 2.12 MG/DL (0.40-0.90); GLUCOSE 111 MG/DL (70-104); POTASSIUM 3.9 MMOL/L (3.5-5.1); SODIUM 142 MMOL/L (135-145); TOTAL PROTEIN 7.7 G/DL (6.4-8.2); eGFR 23 ML/MIN
[~2024-12-18] VITALS: Ht 167.6 cm; Wt 91.9 kg
[2024-12-18] VITALS (11 sets, daily range): BP systolic 119–140; BP diastolic 55–78; PULSE 76–89; RESP 11–17; TEMP 98.1; O2SAT 96–100
[~2024-12-18 09:58] MED LIST changes: -AMLO10TA PO; -ATOR10TA70 PO; -CLOP75TA33 PO; -HYDR25TA90 PO; -METO-539 PO; -Mucomyst PO; +NO HOME MEDS; -POTA10TA9 PO
[2024-12-18] MEDS ORDERED: LIDOcaine 2% (20mg/ml) 5ml vial ONE (10:42)
[2024-12-18] MEDS ORDERED: propofol inj 20 ML IV ONE (10:42)
[2024-12-18] MEDS ORDERED: ringers solution, lacted 1,000 ML IV SCH (10:50)
[2024-12-18] MEDS ORDERED: fentaNYL/PF 50MCG/1 ML 2ML syringe IV PRN ×2 (10:50)
[2024-12-18] MEDS ORDERED: hydrALAZINE 20mg/ml inj. IV PRN (10:50)
[2024-12-18] MEDS ORDERED: ondansetron/PF 4mg/2ml inj IV PRN (10:50)
[2024-12-18] MEDS ORDERED: morphine 4 MG/ML inj SYRINge IV PRN (10:50)
[2024-12-18] MEDS ORDERED: labetalol 20mg/4ml (5mg/ml) syringe IV PRN (10:50)
[2024-12-18] MEDS: famotidine 20mg tablet PO ONE (11:10)
[2024-12-18] MEDS: ringers solution, lacted 1,000 ML IV SCH (11:10)
[2024-12-18] MEDS ORDERED: iohexol 300 MG/1 ML 50ml polymer ONE (11:29)
[2024-12-18] MEDS ORDERED: dexamethasone sod phosphate 4mg/ml inj. ONE (12:30)
[2024-12-18] MEDS ORDERED: midazolam 1 mg/ML 2ml injection ONE (12:33)
[2024-12-18] MEDS ORDERED: fentaNYL/PF 50MCG/1 ML 2ML syringe ONE (12:33)
[2024-12-18] MEDS ORDERED: ondansetron/PF 4mg/2ml inj ONE (12:33)
[2024-12-18] MEDS: ceFAZolin 2gm/dext,iso 50mL 50 ML IV ONE (12:40)
[2024-12-18] MEDS ORDERED: acetaminophen 1,000mg/100ml IV 100 ML IV ONE (12:58)
[2024-12-18] MEDS ORDERED: hydrALAZINE 20mg/ml inj. ONE (13:52)
--- NOTE | 2024-12-18 14:38 | OPERATIVE REPORT ---
Operative Report Providers to ~ Date of Procedure: December 18, 2024 Pre-Operative Diagnosis: Bilateral renal stones Post-Operative Diagnosis SAME as PRE-Op Procedure Performed Cystoscopy, right ureteroscopy, laser lithotrispy, vacuum aspiration of stone, and stent exchange, left stent exchange. Surgeon: MD Nanda Oyster Shucker None Type of Anesthesia: General Findings: Very large right renal stone, largest of which was treated, with more stone burden behind it. Left large renal stone. Minimal encrustation of the stents bilaterally. Complications None Prosthetics\Implants used: Bilateral 6 x 24 double J ureteral stents Estimated Blood Loss: Minimal Specimen Removed: Right renal stones Description of Procedure: Patient was brought to the operating room given a general anesthetic and placed in dorsal lithotomy position. She was prepped and draped in the normal sterile fashion a time-out was performed. A 22 Lithuanian cystoscope was inserted via urethra the right ureteral orifice was seen with a stent emanating from it this was grasped and brought to the urethral meatus at which point a wire was passed easily up to the kidney a 2nd wire was passed adjacent to this and ureteral access sheath was advanced over this into the right ureter the cvac scope was then advanced into the right ureter the stone was identified in the holmium laser fiber was obtained the stone was fragmented into smaller pieces following which much of it was removed using vacuum aspiration that is terrible. After completion of this the ureter had begun to get somewhat inflamed and tight where the scope had been after significant amount of work I determined it would be safest at this point to exchange the stent and allow for a staged approach. I checked the entire ureter which was clear of any stones following which I passed a six Lithuanian by 24 cm double-J ureteral stent over the wire into the right kidney I next turned my attention to the left kidney. The left kidney likely is completely nonfunctional but I would like to exchange the stent in case it is not. She will need a nuclear scan after stent exchange. As a result I did grasp the stent bring it to the urethral meatus and pass a wire up to the kidney and a six Lithuanian by 24 cm double-J ureteral stent was advanced over the wire into the left kidney the bladder was entirely drained of urine the cystoscope was removed via urethra this marked the end the procedure. Patient was awake from general anesthetic and transferred to postoperative care in good condition. MAIRO DOE MD December 18, 2024 14:38
[2024-12-18] MEDS: morphine 2 MG/ML inj. syringe IV PRN (15:38)
[2024-12-18] MEDS: HYDROcodone/acetaminophen 5mg/325mg tablet PO ONE (15:52)
[2025-02-20] MEDS ORDERED: PANT-47 PO (16:21)
[2025-02-20] MEDS ORDERED: LOP12.5T PO (16:21)
[2025-02-20] MEDS ORDERED: CARB-322 PO (16:21)
[2025-02-20] MEDS ORDERED: MILK OF MAG (16:21)
[2025-02-20] MEDS ORDERED: FLEET ENEMA (16:21)
[2025-02-20] MEDS ORDERED: ODANSETRON (16:21)
[2025-02-20] MEDS ORDERED: GABA-530 PO (16:21)
[2025-02-20] MEDS ORDERED: [UNRECOGNIZED DRUG - REMARK] (16:21)
[2025-02-20] MEDS ORDERED: DOCU-148 PO (16:21)
[2025-02-20] MEDS ORDERED: AMLO10TA PO (16:21)
[2025-02-26] MEDS ORDERED: BISA-172 PO (12:15)
[2025-02-26] MEDS ORDERED: ONDA-103 PO (12:15)
[2025-02-26] MEDS ORDERED: BISA10SU96 RC (12:15)
[2025-02-26] MEDS ORDERED: NA P230E RC (12:15)
[2025-02-26] MEDS ORDERED: MAGN400O6 PO (12:15)
== END 2024-12-18 16:05 | disposition home or self-care (01) ==
LOC: PAS 09:58
PROVIDERS: ATTEND Urology
DX: N20.0 Calculus of kidney (principal); I10 Essential (primary) hypertension; I25.10 Atherosclerotic heart disease of native coronary artery without angina pectoris; I25.2 Old myocardial infarction; E66.01 Morbid (severe) obesity due to excess calories; Z90.710 Acquired absence of both cervix and uterus; Z98.890 Other specified postprocedural states; Z88.0 Allergy status to penicillin; Z68.32 Body mass index [BMI] 32.0-32.9, adult
CPT/HCPCS: 36415; 52332; 74420; 80053; 85025; 88300; A4618; A7000; C1747; C1758; C1769; C1894; C2617; C9761; J0131; J0360; J1100; J2003; J2250; J2270; J2405; J2704; J3010; J7030; J7120; Z7506; Z7508; Z7512; Z7610; 76000; Q9967

== ENCOUNTER → 2025-02-27 | Day surgery (SDC) | payer MEDICARE, MEDICAID ==
[2025-02-20 15:40] LABS: MEAN PLATELET VOLUME 7.2 FL (7.4-10.4); PRE OP WHITE BLOOD COUNT 5.8 10'3 (4.8-10.8); RED CELL DISTRIBUTION WIDTH 16.7 % (11.5-14.5)
[2025-02-20 15:43] LABS: PRE OP HEMATOCRIT 29.1 % (35.0-45.0); PRE OP PLATELET COUNT 269 X10'3 (140-440)
--- NOTE | 2025-02-20 15:50 | ELECTROCARDIOGRAPH REPORT ---
[facility] Test Date: 2025-02-20 Test Time: 15:45:05 Pat Name: ARMAAN WILKS Department: [facility]-PRE-OP Patient ID: [facility]-[id number] Room: Gender: F Manager Of Training And Development: FIOR : 1945 Requested By: MARIO DOE Order Number: [id number] Reading MD: Dr. HENRY Friend Measurements Intervals [place] Rate: 63 P: -40 ID: [id number] QRS: 9 QRSD: 127 T: 37 QT: 409 QTc: 419 Interpretive Statements Sinus rhythm Atrial premature complex Nonspecific intraventricular conduction delay Inferior infarct, old Electronically Signed On 02-20-2025 19:17:[address] HENRY Friend Please click the below link to view image of tracing.
[2025-02-20 15:53] LABS: PRE OP HEMOGLOBIN 9.6 g/dL (12.0-16.0)
[2025-02-20 15:59] LABS: CREATININE 2.01 MG/DL (0.40-0.90); PRE OP ALT 22 U/L (30-65); PRE OP ANION GAP 7 (8-16); PRE OP AST 24 U/L (10-37); PRE OP BILIRUB, TOTAL 0.2 MG/DL (0.0-1.0); PRE OP GLUCOSE 176 MG/DL (70-104); PRE OP POTASSIUM 4.1 MMOL/L (3.4-5.1); PRE OP SODIUM 141 MMOL/L (135-145); TOTAL CARBON DIOXIDE 26.6 MMOL/L (24-32); eGFR 24 ML/MIN
[~2025-02-27] VITALS: Ht 170.2 cm; Wt 89.8 kg
[~2025-02-27] MED LIST changes: +AMLO10TA PO; +BISA-172 PO; +BISA10SU96 RC; +CARB-322 PO; +DOCU-148 PO; +DOCUMENT DATE & TIME OF BETA-BLOCKER PO ONE; +GABA-530 PO; +LOP12.5T PO; +MAGN400O6 PO; +NA P230E RC; -NO HOME MEDS; +ONDA-103 PO; +PANT-47 PO
[2025-02-27] MEDS: ceFAZolin 2gm/dext,iso 50mL 50 ML IV ONE (05:30)
[2025-02-27] MEDS: ringers solution, lacted 1,000 ML IV SCH (11:01)
[2025-02-27 11:39] VITALS: BP 135/67; PULSE 59; RESP 16; RESP 17; TEMP 97.4; O2SAT 98
[2025-02-27 11:47] VITALS: RESP 17; O2SAT 98
== END | disposition home or self-care (01) ==
LOC: PAS 10:46
PROVIDERS: ATTEND Urology
DX: N20.0 Calculus of kidney (principal); I49.1 Atrial premature depolarization; I25.2 Old myocardial infarction; Z53.8 Procedure and treatment not carried out for other reasons; I10 Essential (primary) hypertension; E66.9 Obesity, unspecified; Z79.891 Long term (current) use of opiate analgesic; Z79.899 Other long term (current) drug therapy; Z90.49 Acquired absence of other specified parts of digestive tract; Z90.710 Acquired absence of both cervix and uterus; Z98.890 Other specified postprocedural states; Z88.0 Allergy status to penicillin; Z68.31 Body mass index [BMI] 31.0-31.9, adult
CPT/HCPCS: 80053; 82948; 85025; 93005; J0690; J7120

== ENCOUNTER 2025-05-18 21:35 | Inpatient (IN) | payer MEDICARE, MEDICAID ==
[~2025-05-18] VITALS: Ht 167.6 cm; Wt 88.7 kg
[~2025-05-18 21:35] MED LIST changes: -BISA-172 PO; -BISA10SU96 RC; -DOCU-148 PO; -DOCUMENT DATE & TIME OF BETA-BLOCKER PO ONE; +HYDR-3965 PO; +LOSA-416 PO; -MAGN400O6 PO; -NA P230E RC; -ONDA-103 PO; -PANT-47 PO; +PANT20TA18 PO
--- NOTE | 2025-05-18 21:50 | ELECTROCARDIOGRAPH REPORT ---
[facility] Test Date: 2025-05-18 Test Time: 21:47:17 Pat Name: ARMAAN WILKS Department: [facility]- Patient ID: [facility]-[id number] Room: ED 3 Gender: F Functional Tester: : 1945 Requested By: MICHAELA BIRCH Order Number: [id number] Reading MD: Dr. Vinayak Mauro Measurements Intervals [place] Rate: 80 P: -22 SD: 165 QRS: -20 QRSD: 105 T: 29 QT: 450 QTc: 520 Interpretive Statements Sinus rhythm Ventricular premature complex RSR' in V1 or V2, right VCD or RVH Probable left ventricular hypertrophy Prolonged QT interval Electronically Signed On 05-19-2025 6:13:[address] Vinayak Mauro Please click the below link to view image of tracing.
--- NOTE | 2025-05-18 22:29 | Physician Documentation ---
History of Present Illness General Chief Complaint: ALOC Stated Complaint: ALTERED Time Seen by MD: 22:19 Primary Medical Doctor: None History of Present Illness Initial Comments History, review of systems, physical examination are limited secondary to clinical condition. This is a patient was brought into us from [facility] where she is residing for treatment of her deconditioning and generalized weakness after multiple hospitalizations for recurrent UTIs. She has a known kidney stones, status post stents by Dr. Vee. Per daughter, last known well was trigger four days ago. Without any obvious trigger provocation the patient has a gradually declined, and according to the staff at the outside facility she was more confused than usual today so they decided to send her in to get checked out. At the time of my examination the patient did not answer the question of whether or not she has a headache. She told me she does not have chest pain. She tells me she does not know if she has shortness a breath. She denied abdominal pain. No concern for tobacco, alcohol or illicit substances use Medication Reconciliation Allergies: Coded Allergies: Penicillins (Verified Allergy, Unknown, WELTS/AIRWAY SWELLING, HIVES, 05/18/25) TOLERATED CEFEPIME 10/2024 Scheduled Amlodipine Besylate (Amlodipine Besylate), 1 TABLET PO DAILY, (Reported) Carbamazepine (Carbamazepine Er), 1 TAB PO Q12H, (Reported) Gabapentin (Gabapentin), 2 CAP PO DAILY, (Reported) Losartan* (Cozaar*), 2 TAB PO DAILY, (Reported) Metoprolol Tartrate (Lopressor tablet), 1 TAB PO Q12H, (Reported) Pantoprazole Sodium (Protonix), 1 TAB PO BID, (Reported) Scheduled PRN Hydrocodone Bit/Acetaminophen 5/325 MG ([place] 5/325 MG), 1 TAB PO Q6H PRN for pain, (Reported) Past Medical History Past Surgical History: appendectomy, hysterectomy Alcohol Use: None Review of Systems ROS Limited as above Physical Exam Physical Exam Vital Signs: Temperature: 97.0, Source: Oral, Heart Rate: 79, Respiratory Rate: 18, BP: 127/77, Pulse Oximetry: 94, Weight: 88.670 Oxygen Flow Rate: 0 Physical Exam GENERAL: Awake, confused, no apparent distress, chronically ill appearing, answers questions in a very limited fashion, does not not follows commands appropriately. HEENT: Atraumatic, normocephalic, poor dentition noted, pupils equal, extraocular muscles intact, sclerae anicteric, mucus membranes very dry, oropharynx is clear, no stridor. NECK: supple, full active range of motion, trachea midline, no thyromegaly, no lymphadenopathy, no JVD. CARDIOVASCULAR: regular rate/rhythm, no murmurs/gallops/rubs, Pulses are 2+ in all extremities and symmetric. Capillary refill less than 2 seconds. PULMONARY: Nonlabored, good air movement ,no respiratory distress, speaking in full sentences, clear to auscultation bilaterally, no wheezing, no ronchi, no rales, no accessory muscle use. GASTROINTESTINAL: Soft, non-tender, non-distended, normal active bowel sounds, no organomegaly, no pulsatile masses, no CVA tenderness. NEUROLOGIC: Lucid with normal mental status. Normal facial symmetry. Moves all extremities symmetrically and with purpose. No truncal ataxia. Speech is fluid without evidence of dysarthria or aphasia, no focal deficits appreciated. MUSCULOSKELETAL: There is full range of motion of all extremities. There is no joint pain or joint swelling or joint erythema. There is no muscle pain or tenderness or swelling. EXTREMITIES: warm, well-perfused, no cyanosis, no clubbing, no edema, no acute deformities. Skin: warm, dry, no rashes or lesions, no jaundice, no petechiae orpurpura. No ecchymosis. PSYCHIATRIC: Unable to assess Progress Results/Orders Results/Orders Orders - PRANAV BIRCH DO Culture Blood (05/18/25 21:37) Chest,Single View (05/18/25 21:37) Monitor (05/18/25 21:37) Saline Lock (05/18/25 21:37) Oxygen (05/18/25 21:37) Hs Troponin I W Calculations (05/19/25 00:37) Straight Cath For Urine Sample (05/18/25 21:37) Ct Head (05/18/25 22:23) Cult Urine + [place] Ct (05/19/25 00:02) Completed Orders - PRANAV BIRCH DO Procalcitonin (05/18/25 21:37) Chest,Single View (05/18/25 21:37) Cbc/Diff (05/18/25 21:37) BMP (05/18/25 21:37) PBNP (05/18/25 21:37) Electrocardiogram (05/18/25 21:37) Hs Troponin I W Calculations (05/18/25 21:37) Hs Troponin I W Calculations (05/18/25 23:37) Lacticsepsis (05/18/25 21:37) Ct Head (05/18/25 22:23) Normal Saline 1000ml (0.9% Sodium Chlori (05/18/25 22:25) Ua W/Microscopic, Cult If Ind (05/18/25 23:40) Medications Received in ER Medications (Trade) Dose Ordered Sig/Marely Route PRN Reason Start Time Stop Time Status Last Admin Dose Admin Sodium Chloride 1,000 ml @ 1,000 mls/hr ONCE ONCE IV 05/18/25 22:25 05/18/25 23:24 DC 05/18/25 22:33 1,000 MLS/HR Vital Signs 05/18/25 05/18/25 21:38 22:03 Temp 97.0 Pulse 79 Resp 20 18 B/P (MAP) 127/77 Pulse Ox 94 O2 Flow Rate 0 Laboratory Tests Test 05/18/25 22:14 05/18/25 23:29 05/18/25 23:40 White Blood Count 10.5 Red Blood Count 3.00 L Hemoglobin 8.8 L Hematocrit 26.3 L Mean Corpuscular Volume 87.8 Mean Corpuscular Hemoglobin 29.3 Mean Corpuscular Hemoglobin Concent 33.3 Red Cell Distribution Width 16.6 H Platelet Count 547 H Mean Platelet Volume 7.3 L Neutrophils (%) (Auto) 72.5 Lymphocytes (%) (Auto) 17.0 L Monocytes (%) (Auto) 9.1 Eosinophils (%) (Auto) 0.9 Basophils (%) (Auto) 0.5 Neutrophils # (Auto) 7.6 Lymphocytes # (Auto) 1.8 Monocytes # (Auto) 1.0 H Eosinophils # (Auto) 0.1 Basophils # (Auto) 0.1 CBC Comment Sodium Level 136 Potassium Level 3.4 L Chloride Level 104 Carbon Dioxide Level 21.5 L Anion Gap 11 Blood Urea Nitrogen 34 H Creatinine 2.37 H Estimated GFR/1.73 m2 20 BUN/Creatinine Ratio 14.3 Glucose Level 114 H Lactic Acid Level 0.7 Calcium Level 10.2 H Troponin I High Sensitivity 14 15 Pro-B-Type Natriuretic Peptide 5882 H Albumin 1.6 L Procalcitonin 0.46 Chemistry Comments Troponin I High Sens Percent Delta 7 Troponin I Hi Sens Absolute Change 1 Urine Specimen Description Straight cath Urine Color Yellow Urine Clarity Turbid Urine pH Urine Specific [place] Urine Protein Urine Glucose (UA) Urine Ketones Urine Occult Blood Urine Nitrite Urine Bilirubin Urine Urobilinogen Urine Leukocyte Esterase Urine RBC 50-100 Urine WBC Tntc H Urine Squamous Epithelial Cells Few Urine Bacteria 4+ Urine Culture Indicated Indicated Volume Urine Centrifuged 10 ml Urine Comment See note EKG/XRAY/CT/US/VASC/MRI EKG : Additional Comment EKG was obtained and interpreted by myself shows sinus rhythm of 80, normal DC interval, borderline QRS with a incomplete right bundle, prolonged QTC of 520, borderline left axis, there is no evidence of STEMI. Medical Decision Making Additional information obtaine: old records, family, other Findings Facility Status: ED Holds, E process The plan was discussed with the patient, who demonstrates clear understanding of the plan and is in agreement with the plan unless otherwise noted in the chart. All questions have been answered, all concerns were addressed unless otherwise documented. I was available throughout their ED stay for frequent reassessment and questions. Differential Diagnoses (considered and possible or likely): [Dehydration, hypoglycemia, electrolyte derangement, urinary tract infection, pneumonia, occult bacteremia, less likely acute intracranial process such as bleed, neoplasm. Less likely ACS or CHF.] ??Differential Diagnoses (considered and unlikely, not requiring evaluation currently): [No evidence of lateralizing signs to suspect a stroke] MDM Data Please see [facility] for the following: Independent Historians and external Records Review. Historian: [Patient] Independent Historians: ?[Record review as well as review of [facility], discussion with the daughter] Medication Management: [Reviewed medication list] Social History and determinants: [Reviewed] Please see the body of the note for the following: Any independent interpretations of ECG, imaging studies. All vitals signs/haemodynamics, ordered tests were independently reviewed and interpreted by myself. Nursing triage complaint and vitals reviewed, additional nursing notes were reviewed as available and I agree unless otherwise noted or documented in contradiction in the chart Vital Signs: Independently reviewed Labs: Independently interpreted Imaging: Independently interpreted Old Medical Records: Independently reviewed, see HPI for relevant summary and information Pulse Oximetry: [94%] interpreted as [normal on room air] by me [Lance Crewmember: [Regular Rate, Regular rhythm, no ectopy, NSR] reviewed and interpreted by me] Additionally notably showing: [Hemodynamics reviewed. The patient isn't febrile, not tachycardic, no evidence of hypotension respiratory distress. CBC shows anemia. No white count. Chemistry shows stable CKD. BNP is elevated concerning for CHF exacerbation. Troponin is negative. Procalcitonin is normal. On my independent review and interpretation of her chest x-ray, single AP view shows midline trachea, enlarged cardiac silhouette, pulmonary vascular congestion, grossly normal bony structures. No focal infiltrate. Aortic calcification is noted. On my independent review and interpretation of the head CT, there is no acute intracranial bleed, periventricular constipation is noted. UA is fulminant with a positive for UTI] Tests considered but not ordered include: [MRI, if necessary can be done on an inpatient basis] Social Determinants of Health Impact: Patient was evaluated in [facility] [place] due to below par ratio of patient to medical providers. [] Comorbid Conditions Impacting Present Evaluation and Care/Treatment: [Recurrent UTIs] Management Discussions with other Healthcare Providers: [Hospitalist regarding admission] Treatment and Disposition Medication Management (Given or considered): [Fluid resuscitation was provided for treatment of clinically and/or laboratory apparent dehydration.]. See EMR for details Consideration for Hospitalization/Escalation/Deescalation of Care: Admission for observation has been considered, and appears to be necessary for further management of her altered mental status. ?ED Course:?[No clinical deterioration or improvement.] ?Shared decision making:?[] Code status:?FULL Please see the full Electronic Medical Record for full details of nursing documentation, medications list, other records of complete past medical history and conditions, vital signs, laboratory studies, and any radiologic study interpretations by radiologists. Portions of this note were completed using [email or web address] dictation software and as a result there may exist minor errors in spelling. I have reviewed elements of past family and social history and agree as included in note. Differential Diagnosis See the body of main note Departure Disposition: 09 ADMITTED INPATIENT Impression: Primary Impression: Altered mental status Additional Impression: Acute urinary tract infection Referrals: NO PRIMARY CARE PROVIDER (PCP) Education Educated: Family Educated regarding: diagnosis, treatment, prognosis, need for follow up Signature Scribe Signature: No scribe Attestation: Date: May 18, 2025 Time: 22:29 This note accurately reflects clinical decisions, work performed by myself, Pranav Birch, PRANAV TURCIOS DO May 18, 2025 22:29
[2025-05-18] MEDS: normal saline 1000ml 1,000 ML IV ONE (22:33)
[2025-05-18 22:34] LABS: MEAN PLATELET VOLUME 7.3 FL (7.4-10.4); RED CELL DISTRIBUTION WIDTH 16.6 % (11.5-14.5)
[2025-05-18 22:52] LABS: CREATININE 2.37 MG/DL (0.40-0.90); PRO BRAIN NATRIURETIC PEPTIDE 5882 PG/ML (0-450); TOTAL CARBON DIOXIDE 21.5 MMOL/L (24-32); eCRCL 18 ML/MIN; eGFR 20 ML/MIN
--- NOTE | 2025-05-18 23:28 | RADIOLOGY REPORT ---
EXAM: CT CT HEAD INDICATION: Altered mental status TECHNIQUE: CT of the head without intravenous contrast. Radiation Dose Information: CT Dose: CTDI volume is 53.56 mGy. Dose-length product is 1171.54 mGy*cm The dose indicators for CT are the volume Computed Tomography (CT) Dose Index (CTDIvol) and the Dose Length Product (DLP), and are measured in units of mGy and mGy-cm, respectively. These indicators are not patient dose, but values generated from the CT scanner acquisition factors. The report includes radiation exposure data for exposures received during this examination. COMPARISON: CT CT HEAD on DOS: 02/05/25, CT CT HEAD on DOS: 11/15/24, CT CT FACIAL BONES/SOFT TISSUE on DOS: 11/13/24, CT CT HEAD on DOS: 11/11/24 FINDINGS: Motion artifact degrades fine detail. No acute territorial infarct, intracranial hemorrhage, or mass effect. There are global involutional changes with compensatory prominence of the ventricles and sulci. Patchy periventricular and subcortical white matter hypoattenuation is nonspecific but may be related to small vessel ischemic disease. The orbits are normal. The paranasal sinuses and mastoid air cells are clear. The osseous structures are unremarkable. IMPRESSION: 1. No acute territorial infarct, intracranial hemorrhage, or mass effect. 2. Age-related involutional changes. Chronic microvascular changes. 3. If clinical symptoms persist, MRI may be beneficial in further evaluation.
--- NOTE | 2025-05-18 23:55 | RADIOLOGY REPORT ---
EXAM: DI CHEST,SINGLE VIEW TECHNIQUE: Single frontal chest radiograph CLINICAL HISTORY: CP COMPARISON: ANGIO LINE PLACEMENT(PICC NURSE) on DOS: 04/26/25, DI CHEST,SINGLE VIEW on DOS: 02/11/25, DI CHEST,SINGLE VIEW on DOS: 02/05/25, DI CHEST,SINGLE VIEW on DOS: 11/11/24 FINDINGS/IMPRESSION: Mild prominence of the interstitial markings. Unchanged cardiomediastinal silhouette. No pleural effusion or pneumothorax. Unchanged osseous structures.
[2025-05-19 00:01] LABS: UA COLLECTION TYPE STRAIGHT CATH
[2025-05-19 00:02] LABS: SQUAMOUS EPITHELIAL CELL,UR FEW /LPF (FEW)
[2025-05-19] MEDS: CefTRIAXone 2gm/D5W 50ml BAG 50 ML IV ONE ×2 (00:49→00:56)
[2025-05-19] MEDS: CefTRIAXone 2gm/NS 100ml IVPB 50 ML IV ONE (00:56)
[2025-05-19] MEDS ORDERED: potassium Cl 40MEQ/1/2NS 520ml 520 ML IV PRN (01:20)
[2025-05-19] MEDS ORDERED: magnesium sulf-water 4G/100mL 100 ML IV PRN (01:20)
[2025-05-19] MEDS ORDERED: potassium Cl 20 mEq SR tablet PO PRN (01:20)
[2025-05-19] MEDS ORDERED: magnesium Cl slow-release 64mg tablet PO PRN (01:20)
[2025-05-19] MEDS ORDERED: magnesium sulf-water 2g/50mL 50 ML IV PRN (01:20)
--- NOTE | 2025-05-19 01:36 | HISTORY AND PHYSICAL-Residence ---
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 Not able to obtain much history from the patient and she is AAO x2. However she denies any abdominal pain. As per sign-out received from the ER the, patient's mental status has been declining for the past 3-4 days and she appeared more confused than usual today and hence she was sent to the ER. ER course- patient was diagnosed with UTI, and started on IV Rocephin and given 1 L of normal saline bolus Allergies: Coded Allergies: Penicillins (Verified Allergy, Unknown, WELTS/AIRWAY SWELLING, HIVES, 05/18/25) TOLERATED CEFEPIME 10/2024 Home Medications Home Medications Active Reported [place] 5/325 MG (Acetaminophen/Hydrocodone Bitart) 5 Mg/325 Mg Tablet 1 Tab PO Q6H PRN Cozaar* (Losartan Potassium) 50 Mg Tablet 2 Tab PO DAILY 30 Days Protonix (Pantoprazole Sodium) 20 Mg Tablet.dr 1 Tab PO BID 30 Days Lopressor tablet (Metoprolol Tartrate) 25 Mg Tablet 1 Tab PO Q12H 30 Days Hold for SBP below 100mm Hg Hold for Heart Rate below 60. Gabapentin 100 Mg Capsule 2 Cap PO DAILY 30 Days Carbamazepine Er (Carbamazepine) 200 Mg Tab.er.12h 1 Tab PO Q12H 30 Days Amlodipine Besylate 10 Mg Tablet 1 Tablet PO DAILY Past Medical History Past Medical History Recurrent UTI, staghorn calculus left kidney with a left kidney atrophy CKD stage 4 Chronic anemia GERD Hypertension Trigeminal neuralgia Past Surgical History Surgical History Comment Cardiac catheterization with stent placement in 2014 Fracture repair of the right wrist and right ankle Bilateral J-stent placement Appendectomy Complete hysterectomy secondary to fibroids Past Social History Social History Comment Denies smoking, alcohol, illicit drug use Lives in [facility] Alcohol Use: None ROS ROS ROS unable to obtain as patient is obtunded and not able to provide history Exam Vitals: Vital Signs Date Time Temp Pulse Resp B/P (MAP) Pulse Ox O2 Delivery O2 Flow Rate FiO2 05/19/25 00:28 70 23 93/49 (64) 95 05/18/25 21:38 97.0 0 General: General: Elderly female, AAO x2, oriented to name and place, not in apparent distress Head: Normocephalic with an atraumatic Eyes: Pupils- 3mm, reacting to light, conjunctiva- anicteric Nose and throat: No polyps, septum- normal, no mucosal ulcers Neck: Supple, no lymphadenopathy, no carotid bruit Respiratory: No use of accessory muscles of respiration, Bilateral normal vesiscular breath sounds heard. No wheeze, rhochi or creps Cardiac: S1-S2 heard, rythm regular, no gallop, short systolic murmur in tricuspid area Abdomen: non distended, no tenderness, no organomegaly, bowel sounds- heard Extremities: no clubbing, no pedal edema, no deformities, peripheral pulses- 2+ Skin: warm and dry, no rash, no purpura Neuro: Unable to examine as patient is obtunded, but able to move all extremities, appearance of slight deviation of angle of mouth to the left side Diagnostic Data Last Recorded Lab Results: 05/18/25221305/18/252213 Advance Care Planning Advanced Care plannin - 30 Minutes (Code status as per her POLST is full code) Additional Plan 79-year-old female with PMH of recurrent UTIs, 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 planned for left nephrectomy in the future, CKD 4, chronic anemia, hypertension, trigeminal neuralgia was brought into the ED by EMS from [facility] with concerns of altered mental status for about three days Altered mental status -suspect likely secondary to metabolic encephalopathy from UTI vs toxic enceph due to opoids -CT brain- no hemorrhage -follow up on ammonia, TSH, UDS -avoid opioids and sedatives -NPO until passed bedside swallow test -continue delirium precautions Recurrent UTI Sepsis secondary to above -follow up on urine cultures and blood cultures -based on previous urine cultures, started on IV meropenem 500 mg q.12h (renally dosed) -deescalate antibiotics based on culture and sensitivity 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 Vee in the near future MILVIA on CKD stage 4 -baseline creatinine 1.8-1.9 -current creatinine 2.3, -suspect MILVIA secondary to dehydration, sepsis -follow up on urine lytes, ultrasound kidneys to look for hydronephrosis -received 1 L normal saline bolus in the ER, -plan for another 1 L normal saline bolus -monitor strict input output chart -follow up on PTH Non-anion gap metabolic acidosis -mild acidosis with a bicarb of 21.5 -suspect likely secondary to MILVIA versus sepsis -monitor CMP and if her bicarbonate is getting <18 then plan for bicarbonate transfusion Chronic normocytic anemia -H&H-8.8/.3, normal MCV, increased RDW -serum iron nine, TIBC 140, TSAT six, ferritin 162 on 05/19 -follow up on repeat iron panel -plan for iron transfusion based on ferritin and TSAT levels Elevated proBNP -chest x-ray showed increased interstitial markings, EKG normal sinus rhythm -previous echo done October 2024 LVEF 70% with PASP of 57 -suspect elevated proBNP secondary to CKD -follow up on 2D echo History of NSAID-induced peptic ulcer -continue Protonix 40 mg IV once daily Hypertension -amlodipine, losartan and metoprolol on hold in view of low blood pressure Trigeminal neuralgia -tegretol and gabapentin on hold in view of altered mental status Possible multiple myeloma -patient does have hypercalcemia, abnormal renal function, anemia, with increased protein and globulin -CT brain showed no skull lesions -she did have workup with SPEP and UPEP in 2013 which was negative -monitor CMP and if there is persistent hypercalcemia or persistent hyperproteinemia discuss with coach operator according workup for multiple myeloma Code Status: Full code Line/tube: PIV DVT prophylaxis: Heparin Nutrition: NPO until passes bedside swallow test, renal diet PT: Yes Prognosis: Guarded Disposition: Continue care in PCU, Madan Hill MD IM PGY-3 resident Attending Addendum I discussed this case and saw the pt with the resident team Agree with assessment and plan as documented Date of Service: May 19, 2025 Billing Provider: DANIELE CABRERA MD, HARIVARSHA, RES May 19, 2025 01:36 DANIELE CABRERA MD May 19, 2025 10:22
[2025-05-19 01:47] LABS: APTT 26 SECONDS (22-32); INR 1.3 INR
[2025-05-19 01:48] LABS: OSMOLALITY 301 MOSM/K (280-300)
[2025-05-19] MEDS: PERFLUTREN PROTEIN-A MICROSPHR (Optison) 0.22 MG/ML 3ML VIAL IV ONE (01:58)
[2025-05-19] MEDS: normal saline 1000ml 1,000 ML IV ONE (02:34)
[2025-05-19] MEDS: potassium Cl 20 mEq SR tablet PO PRN (04:10)
[2025-05-19 04:58] LABS: URINE AMPHETAMINE SCREEN NEGATIVE (Neg); URINE BARBITUATE SCREEN NEGATIVE (Neg); URINE BENZODIAZEPINES SCREEN NEGATIVE (Neg); URINE CANNABINOID SCREEN NEGATIVE (Neg); URINE COCAINE SCREEN NEGATIVE (Neg); URINE METHADONE SCREEN NEGATIVE (Neg); URINE OPIATE SCREEN NEGATIVE (Neg); URINE PHENCYCLIDINE SCREEN NEGATIVE (Neg)
[2025-05-19 05:00] LABS: OSMOLALITY UA 403.0 MOSM/K (50-1400)
[2025-05-19 05:15] LABS: CREATININE,URINE RANDOM 94.0 MG/DL; TOTAL PROTEIN,URINE RANDOM 268.1 MG/DL; UA UREA RANDOM 503.0 MG/DL
[2025-05-19] MEDS: docusate sod 100mg capsule PO SCH (08:00)
[2025-05-19] MEDS ORDERED: non-formulary drug (Pantoprazole Sodium (Protonix) 1 TAB) PO SCH (08:00)
[2025-05-19] MEDS: K and/or MAG REPLACEMENT MC SCH (08:00)
[2025-05-19 09:00] VITALS: RESP 16; O2SAT 98
[2025-05-19 09:27] LABS: % IRON SATURATION 9 % (11-46)
[2025-05-19 09:39] LABS: CREATININE 2.01 MG/DL (0.40-0.90); TOTAL CARBON DIOXIDE 19.8 MMOL/L (24-32); eCRCL 22 ML/MIN; eGFR 24 ML/MIN
[2025-05-19] MEDS: MEROPENEM 500MG/50ML-NS IVPB 50 ML IV SCH (09:43)
[2025-05-19] MEDS: heparin, porcine 5000 units/ml vial SQ SCH (09:43)
--- NOTE | 2025-05-19 10:41 | RADIOLOGY REPORT ---
INDICATION: MILVIA,hydronephrosis TECHNIQUE: Multiple real-time sonographic images of the kidneys and urinary bladder were obtained. COMPARISON: CT CT ABDOMEN PELVIS on DOS: 04/26/25. FINDINGS: The right kidney measures 9.3 cm in length. The right renal echotexture, contour and cortical thickness are within normal limits. There is mild right hydronephrosis. 1.9 cm right stone. The left kidney difficult to measure due to enlarged size and significant dilatation of the left renal calices and thinning of the renal cortex. Left renal pelvis stone and severe left hydronephrosis is noted. The urinary bladder is underdistended. IMPRESSION: 1. Severe left hydronephrosis with left renal pelvis stone. Significant dilatation of the renal calices. 2. Mild right hydronephrosis with right renal stone.
[2025-05-19 11:00] VITALS: BP 143/63; PULSE 71; RESP 16; TEMP 97.5; O2SAT 98
[2025-05-19] MEDS: normal saline 1000ml 1,000 ML IV SCH (14:35)
[2025-05-19 16:58] VITALS: BP 168/78; PULSE 71; RESP 20; TEMP 96.9; O2SAT 97
[2025-05-19] MEDS: hydrALAZINE 20mg/ml inj. IV PRN (17:53)
[2025-05-19 18:00] VITALS: BP 141/68; PULSE 82; RESP 18; TEMP 97.1; O2SAT 97
[2025-05-19 20:00] VITALS: RESP 18; O2SAT 97
[2025-05-19] MEDS ORDERED: VANCOMYCIN 1.75GM/WATER FOR INJ (PEG) 350 ML IVPB IV ONE (21:00)
[2025-05-19 22:00] VITALS: BP 146/66; PULSE 79; RESP 14; TEMP 98.6; O2SAT 95
[2025-05-19] MEDS: linezolid 600mg/300ml PREMIX 300 ML IV ONE (22:33)
[2025-05-20] VITALS (9 sets, daily range): BP systolic 127–168; BP diastolic 59–77; PULSE 70–85; RESP 14–24; TEMP 97.3–99.1; O2SAT 94–98
[2025-05-20 06:09] LABS: MEAN PLATELET VOLUME 7.2 FL (7.4-10.4); RED CELL DISTRIBUTION WIDTH 16.4 % (11.5-14.5)
[2025-05-20 06:47] LABS: CREATININE 1.83 MG/DL (0.40-0.90); PHOSPHORUS 2.7 MG/DL (2.3-4.5); TOTAL CARBON DIOXIDE 18.8 MMOL/L (24-32); eCRCL 24 ML/MIN; eGFR 27 ML/MIN
[2025-05-20] MEDS: linezolid 600mg/300ml PREMIX 300 ML IV ONE (10:05)
[2025-05-20] MEDS: ringers solution, lacted 1,000 ML IV SCH (11:35)
--- NOTE | 2025-05-20 15:13 | PROGRESS NOTE- Residence ---
Progress Note - Resident Providers to CC Resident Creating Document: GABI SHAY RES ~ Antibiotic Timeout Antibiotic Ordered?: Yes Subjective Patient was seen and examined at the bedside today. Patient had no new complaints. No acute overnight events reported. Objective Vital Signs Date Time Temp Pulse Resp B/P (MAP) Pulse Ox O2 Delivery O2 Flow Rate FiO2 05/20/25 06:00 74 05/20/25 02:00 97.9 16 130/66 (87) 95 Room Air 05/19/25 09:00 0.0 Result Diagram: 05/20/2543 05/20/25542 General: Elderly female, AAO x2, oriented to name and place, not in apparent distress Head: Normocephalic with an atraumatic Eyes: Pupils- 3mm, reacting to light, conjunctiva- anicteric Nose and throat: No polyps, septum- normal, no mucosal ulcers Neck: Supple, no lymphadenopathy, no carotid bruit Respiratory: No use of accessory muscles of respiration, Bilateral normal vesiscular breath sounds heard. No wheeze, rhochi or creps Cardiac: S1-S2 heard, rythm regular, no gallop, short systolic murmur in tricuspid area Abdomen: non distended, no tenderness, no organomegaly, bowel sounds- heard Extremities: no clubbing, no pedal edema, no deformities, peripheral pulses- 2+ Skin: warm and dry, no rash, no purpura Coagulation Studies Laboratory Tests Test 05/19/25 00:51 Prothrombin Time 13.1 SECONDS (9.0-12.0) H INR International Normalized Ratio 1.3 INR Activated Partial Thromboplast Time 26 SECONDS (22-32) Coagulation Comments Plan Plan Altered mental status due to Metabolic encephalopathy from underlying UTI -suspect likely secondary to metabolic encephalopathy from UTI vs toxic enceph due to opoids -CT brain- no hemorrhage -follow up on ammonia, TSH, UDS -avoid opioids and sedatives -NPO until passed bedside swallow test -continue delirium precautions 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 Vee in the near future 05/20- Sepsis resolved Based on previous urine cultures, patient on IV meropenem 500 mg q.12h. One of the blood cultures grew Gram-positive cocci in clusters, most likely to be a contaminant. Awaiting for urine cultures. Since patient is having recurrent UTIs, her urologist has been consulted, awaiting recommendations. MILVIA on CKD stage 4 -baseline creatinine 1.8-1.9 -current creatinine 2.3, -suspect MILVIA secondary to dehydration, sepsis -follow up on urine lytes, ultrasound kidneys to look for hydronephrosis -received 1 L normal saline bolus in the ER, -plan for another 1 L normal saline bolus -monitor strict input output chart -follow up on PTH 05/20- MILVIA on CKD stage 4 Creatinine down trended to 1.83 Non-anion gap metabolic acidosis -mild acidosis with a bicarb of 21.5 -suspect likely secondary to MILVIA versus sepsis -monitor CMP and if her bicarbonate is getting <18 then plan for bicarbonate transfusion Chronic normocytic anemia- -H&H-8.8/26.3, normal MCV, increased RDW -serum iron nine, TIBC 140, TSAT six, ferritin 162 on 05/19 -follow up on repeat iron panel -plan for iron transfusion based on ferritin and TSAT levels Elevated proBNP -chest x-ray showed increased interstitial markings, EKG normal sinus rhythm -previous echo done October 2024 LVEF 70% with PASP of 57 -suspect elevated proBNP secondary to CKD -follow up on 2D echo 05/20- Chronic heart failure with preserved ejection fraction not in acute exacerbation- Echo shows EF of 55%. Patient currently has no signs of volume overload. History of NSAID-induced peptic ulcer -continue Protonix 40 mg IV once daily Code Status: Full code Line/tube: PIV DVT prophylaxis: Heparin Nutrition: renal diet PT: Yes Prognosis: Guarded Disposition: Continue care in PCU, DISPOSITION- currently waiting for urine cultures and urology recommendations. Gabi Shay PGY-1 Date of Service: May 20, 2025 Billing Provider: KATHRYN PATEL MD Common Visit Codes: [id number] INP/OBS CARE(HIGH) GABI SHAY, RES May 20, 2025 15:12 KATHRYN PATEL MD May 21, 2025 06:24
[2025-05-20] MEDS: Nepro carb steady vanilla 8oz. PO SCH (18:02)
--- NOTE | 2025-05-20 18:37 | CARDIOLOGY REPORT ---
APPROVED REPORT EXAM: Comprehensive 2D, Doppler, and color-flow Echocardiogram. Patient Location: [facility] Heart Rate: 79 bpm Rhythm: NSR Indications CONGESTIVE HEART FAILURE HTN HOUSEKEEPING ASSOCIATE: HENRY GAYLE MD PRIOR ECHOCARDIOGRAM: CORONARY STENT X1 2013 small LV; hyperdynamic lvf 70%; m RV wall thickening; RVSP 57 mmHg; m LAE; m MAC; mod MR; 2D Dimensions RVDd 2.6 cm IVSd 1.2 (0.7-1.1cm) LVDd 5.5 cm PWd 1.2 (0.7-1.1cm) IVSs 1.9 (0.8-1.2cm) LVDs 4.0 (2.5-4.0cm) PWs 1.2 (0.8-1.2cm) LVOT Diameter 2.02 (1.8-2.4cm) LVEF(%) 55.0 (>50%) FS (%) 26.6 % SV 75.9 ml CO 7.3 L/min M-Mode Dimensions Left Atrium(MM) 3.83 (2.5-4.0cm) Aortic Root 3.46 (2.2-3.7cm) Aortic Cusp Exc 1.94 (1.5-2.0cm) Aortic Valve AoV Peak Julian. 157.7 cm/s AoV VTI 24.4 cm AO Peak GR. 9.9 mmHg AO Mean GR. 4 mmHg LVOT VTI 15.72 cm LVOT Peak Julian. 96.0 cm/s DIONISIO(VTI)/BSA 2.05 cm2/m2 DIONISIO (VTI) 2.05 cm2 AI P 1/2 Time 620 ms AV DI 0.64 % Mitral Valve MV E Velocity 75.6 cm/s MV Peak Gr. 3 mmHg MV A Velocity 75.2 cm/s MV PHT 68 ms E/A Ratio 1.0 MVA (PHT) 3.24 cm2 MV VMax 90.6 cm/s Tricuspid Valve TR P. Velocity 284 cm/s RAP ESTIMATE 5 mmHg TR Peak Gr. 32 mmHg RVSP 37 mmHg LEFT VENTRICLE Normal LV size and function. Mild concentric hypertrophy. LVEF is 55%. RIGHT VENTRICLE RV is normal size and function. RVSP is 37 mmHg. ATRIA Left atrium is mildly dilated. The right atrium size is normal. AORTIC VALVE Trileaflet AV appears mildly sclerotic without stenosis. Mild insufficiency. MITRAL VALVE Mild mitral annular calcification without stenosis. Mild regurgitation. TRICUSPID VALVE TV appears structurally normal with mild regurgitation. PULMONIC VALVE Pulmonic valve is not well visualized. GREAT VESSELS The aortic root is normal in size. The ascending aorta is normal in size. The IVC is normal in size and collapses >50% with inspiration. PERICARDIUM Mild pericardial effusion, mostly posterior without hemodynamic compromise. Other Information Study Quality: Fair Technically limited study due to body habitus. Conclusion Normal LV size and function. Mild concentric hypertrophy. LVEF is 55%. RV is normal size and function. RVSP is 37 mmHg. Left atrium is mildly dilated. Trileaflet AV appears mildly sclerotic without stenosis. Mild insufficiency. Mild mitral annular calcification without stenosis. Mild regurgitation. TV appears structurally normal with mild regurgitation. Mild pericardial effusion, mostly posterior without hemodynamic compromise.
[2025-05-20] MEDS: ondansetron/PF 4mg/2ml inj IV PRN (18:59)
[2025-05-21] VITALS (8 sets, daily range): BP systolic 130–148; BP diastolic 60–69; PULSE 71–82; RESP 16–24; TEMP 97.7–100; O2SAT 94–96
[2025-05-21 06:26] LABS: MEAN PLATELET VOLUME 7.2 FL (7.4-10.4); RED CELL DISTRIBUTION WIDTH 16.6 % (11.5-14.5)
[2025-05-21 07:02] LABS: CREATININE 1.52 MG/DL (0.40-0.90); PHOSPHORUS 3.0 MG/DL (2.3-4.5); TOTAL CARBON DIOXIDE 20.5 MMOL/L (24-32); eCRCL 29 ML/MIN; eGFR 33 ML/MIN
--- NOTE | 2025-05-21 15:21 | PROGRESS NOTE- Residence ---
Progress Note - Resident Providers to CC Resident Creating Document: VICK KATE RES ~ Antibiotic Timeout Antibiotic Ordered?: Yes Subjective Patient was seen and examined at the bedside today. No new complaints reported. Urine cultures positive for Morganella morganii, resistant to Cipro, Bactrim, Augmentin. Sensitive to meropenem, Zosyn. Tried contacting Dr. Vee, waiting for call back. Patient has a hypercalcemia, 11.8, increasing the rate of IV fluids to LR@ 125 Objective Vital Signs Date Time Temp Pulse Resp B/P (MAP) Pulse Ox O2 Delivery O2 Flow Rate FiO2 05/21/25 15:05 97.7 76 18 135/65 (88) 95 Room Air 05/20/25 08:00 0.0 Result Diagram: 05/21/2555705/21/25557 General: Elderly female, AAO x2, oriented to name and place, not in apparent distress Head: Normocephalic with an atraumatic Eyes: Pupils- 3mm, reacting to light, conjunctiva- anicteric Nose and throat: No polyps, septum- normal, no mucosal ulcers Neck: Supple, no lymphadenopathy, no carotid bruit Respiratory: No use of accessory muscles of respiration, Bilateral normal vesiscular breath sounds heard. No wheeze, rhochi or creps Cardiac: S1-S2 heard, rythm regular, no gallop, short systolic murmur in tricuspid area Abdomen: non distended, no tenderness, no organomegaly, bowel sounds- heard Extremities: no clubbing, no pedal edema, no deformities, peripheral pulses- 2+ Skin: warm and dry, no rash, no purpura Coagulation Studies Laboratory Tests Test 05/19/25 00:51 Prothrombin Time 13.1 SECONDS (9.0-12.0) H INR International Normalized Ratio 1.3 INR Activated Partial Thromboplast Time 26 SECONDS (22-32) Coagulation Comments Plan Plan Altered mental status due to Metabolic encephalopathy from underlying UTI -suspect likely secondary to metabolic encephalopathy from UTI vs toxic enceph due to opoids -CT brain- no hemorrhage -TSH, ammonia normal, U tox negative -avoid opioids and sedatives -swallow evaluation done, recommended soft diet. -continue delirium precautions Recurrent multidrug resistant UTI Left Staghorn calculus with left atrophic kidney UA positive for infection Urine cultures positive for Morganella morganii, resistant to Cipro, Augmentin, Bactrim, sensitive to meropenem, Zosyn. Of the blood cultures positive for Staph epidermidis, likely contaminant Continuing on IV meropenem 500 mg b.i.d. patient is planned to undergo left nephrectomy by Dr. Vee in the near future contacted Dr. Vee, awaiting for call back. MILVIA on CKD stage 4 -baseline creatinine 1.8-1.9 -creatinine trending down, 1.5 today -suspect MILVIA secondary to dehydration, sepsis, obstruction -Renal ultrasound showed severe left hydronephrosis with a left renal pelvis stone, significant dilation of renal calyces, mild right hydronephrosis with a right renal stone, 1.9 cm -avoid nephrotoxin medications, renal dosing of medications -strict I&O Non-anion gap metabolic acidosis -bicarb improved, 20.5 -suspect likely secondary to MILVIA versus sepsis -monitor CMP and if her bicarbonate is getting <18 then plan for bicarbonate transfusion Chronic normocytic anemia- -H&H-7.6 -serum iron 13, TIBC 140,% saturation nine, ferritin 335 -started on daily oral iron. Chronic heart failure with preserved ejection fraction not in acute exacerbation- Echo shows EF of 55%. Patient currently has no signs of volume overload. Possible multiple myeloma Hypercalcemia Calcium 9.6, corrected calcium 11.8 Anemia, hemoglobin 7.9, MILVIA Total protein 7.0, albumin 1.2, albumin/globulin 0.2 Total urine protein 268.1 Increasing the rate of IV fluids from LR@ 50-125 Patient would need outpatient workup for multiple myeloma. History of NSAID-induced peptic ulcer -continue Protonix 40 mg IV once daily Code Status: Full code Line/tube: PIV DVT prophylaxis: Heparin Nutrition: renal diet PT: Yes Prognosis: Guarded Disposition: Continue care in PCU, awaiting recommendations from Urology. [facility]. Allysongenesis Shay PGY-1 Date of Service: May 21, 2025 Billing Provider: KATHRYN PATEL MD Common Visit Codes: [id number] INP/OBS CARE(HIGH) VICK KATE, RES May 21, 2025 15:21 KATHRYN PATEL MD May 22, 2025 06:58
[2025-05-21] MEDS ORDERED: iron polysaccharide complex 150mg capsule PO SCH (20:00)
[2025-05-22 02:30] VITALS: BP 147/67; PULSE 79; RESP 19; TEMP 98.3; O2SAT 95
[2025-05-22 06:00] VITALS: BP 144/66; PULSE 79; RESP 12; TEMP 98; O2SAT 96
[2025-05-22 07:00] LABS: MEAN PLATELET VOLUME 7.2 FL (7.4-10.4); RED CELL DISTRIBUTION WIDTH 16.3 % (11.5-14.5)
[2025-05-22 07:19] LABS: CREATININE 1.48 MG/DL (0.40-0.90); PHOSPHORUS 2.9 MG/DL (2.3-4.5); TOTAL CARBON DIOXIDE 23.0 MMOL/L (24-32); eCRCL 29 ML/MIN; eGFR 34 ML/MIN
[2025-05-22] MEDS: iron sucrose complex injection 200 MG in normal saline 100ml IV soln 100 ML IV SCH (08:00)
[2025-05-22 11:00] VITALS: BP 126/56; PULSE 78; RESP 13; TEMP 98.4; O2SAT 94
[2025-05-22] MEDS: magnesium hydroxide 30ml (MOM) UD suspension PO ONE (12:40)
[2025-05-22 15:00] VITALS: BP 153/73; PULSE 78; RESP 15; TEMP 98.1; O2SAT 96
--- NOTE | 2025-05-22 17:05 | DISCHARGE SUMMARY-Residence ---
Discharge Summary Providers to CC Resident Creating Document: GABI PRAJAPATI RES ~ Discharge Summary Admission Diagnosis: UTI, MILVIA, AMS Hospital Course DATE OF ADMISSION: 05/19/25 DATE OF DISCHARGE: 05/22/25 Imaging- Chest x-ray- Mild prominence of the interstitial markings. Unchanged cardiomediastinal silhouette. No pleural effusion or pneumothorax. Unchanged osseous structures. Head CT-No acute territorial infarct, intracranial hemorrhage, or mass effect. 2. Age-related involutional changes. Chronic microvascular changes. 3. If clinical symptoms persist, MRI may be beneficial in further evaluation. Echocardiogram- Normal LV size and function. Mild concentric hypertrophy. LVEF is 55%. RV is normal size and function. RVSP is 37 mmHg. Left atrium is mildly dilated. Trileaflet AV appears mildly sclerotic without stenosis. Mild insufficiency. Mild mitral annular calcification without stenosis. Mild regurgitation. TV appears structurally normal with mild regurgitation. Mild pericardial effusion, mostly posterior without hemodynamic compromise. Renal ultrasound- Severe left hydronephrosis with left renal pelvis stone. Significant dilatation of the renal calices. Mild right hydronephrosis with right renal stone. Discharge Diagnosis\Comment: Altered mental status due to Metabolic encephalopathy from underlying UTI Recurrent multidrug resistant UTI Left Staghorn calculus with left atrophic kidney MILVIA on CKD stage 4 Non-anion gap metabolic acidosis Chronic normocytic anemia- Chronic heart failure with preserved ejection fraction not in acute exacerbation- Possible multiple myeloma Hypercalcemia Operations\Procedures: None Consultants: Urology ID Complications: None Condition on DC: Stable Discharge Summary: 79-year-old female with PMH of recurrent UTIs, 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 planned for left nephrectomy in the future, CKD 4, chronic anemia, hypertension, trigeminal neuralgia was brought into the ED by EMS from [facility] with concerns of altered mental status for about three days. Not able to obtain much history from the patient and she is AAO x2. However she denies any abdominal pain. As per sign-out received from the ER the, patient's mental status has been declining for the past 3-4 days and she appeared more confused than usual today and hence she was sent to the ER. ER course- patient was diagnosed with UTI, and started on IV Rocephin and given 1 L of normal saline bolus Hospital course- Based on previous urine cultures patient was started on meropenem IV 500 mg, blood and urine cultures were collected prior to the start of antibiotics. Patient also had MILVIA on CKD stage 4 with initial creatinine of 2.3 for which she was treated with fluids, that was slowly trending down which came back to 1.48 on the day of discharge which is her normal baseline. Patient also had normocytic anemia with hemoglobin of 8.8 for which she did not require any blood transfusions during her hospital stay. Her hypertension medications losartan, amlodipine, and metoprolol were held in view of low blood pressures. Later 1 of her blood cultures grew staph epidermidis which most likely is a contaminant and her urine cultures grew Morganella Morgagni, in view of which ID was consulted and they recommended stopping her IV antibiotics completely as she already completed 3-1/2 days of IV meropenem and was currently asymptomatic. Urology Dr. Vee who is her urologist has also been consulted for her staghorn calculi who recommended to follow-up outpatient in his clinic. Patient's condition improved significantly during the stay of the hospital. She was stable at the time of discharge. Patient being discharged to [facility]. Vital Signs Date Time Temp Pulse Resp B/P (MAP) Pulse Ox O2 Delivery O2 Flow Rate FiO2 05/22/25 11:00 98.4 78 13 126/56 (79) 94 Room Air 05/20/25 08:00 0.0 Laboratory Tests Test 05/21/25 05:58 05/22/25 06:21 White Blood Count 9.7 X10'3 10.3 X10'3 Red Blood Count 2.59 X10'6 2.62 X10'6 Hemoglobin 7.5 g/dl 7.6 g/dl Hematocrit 23.1 % 23.4 % Mean Corpuscular Volume 89.3 FL 89.4 FL Mean Corpuscular Hemoglobin 29.1 PG 29.0 PG Mean Corpuscular Hemoglobin Concent 32.6 g/dL 32.4 g/dL Red Cell Distribution Width 16.6 % 16.3 % Platelet Count 399 X10'3 429 X10'3 Mean Platelet Volume 7.2 FL 7.2 FL Neutrophils (%) (Auto) 79.9 % 77.4 % Lymphocytes (%) (Auto) 10.4 % 13.9 % Monocytes (%) (Auto) 8.2 % 7.0 % Eosinophils (%) (Auto) 1.2 % 1.2 % Basophils (%) (Auto) 0.3 % 0.5 % Neutrophils # (Auto) 7.8 X10'3 8.0 X10'3 Lymphocytes # (Auto) 1.0 X10'3 1.4 X10'3 Monocytes # (Auto) 0.8 X10'3 0.7 X10'3 Eosinophils # (Auto) 0.1 X10'3 0.1 X10'3 Basophils # (Auto) 0.0 X10'3 0.0 X10'3 CBC Comment Sodium Level 141 MMOL/L 141 MMOL/L Potassium Level 3.6 MMOL/L 3.7 MMOL/L Chloride Level 110 MMOL/L 109 MMOL/L Carbon Dioxide Level 20.5 MMOL/L 23.0 MMOL/L Anion Gap 11 9 Blood Urea Nitrogen 20 MG/DL 20 MG/DL Creatinine 1.52 MG/DL 1.48 MG/DL Estimated GFR/1.73 m2 33 ML/MIN 34 ML/MIN BUN/Creatinine Ratio 13.2 13.5 Glucose Level 104 MG/DL 92 MG/DL Calcium Level 9.6 MG/DL 9.8 MG/DL Phosphorus Level 3.0 MG/DL 2.9 MG/DL Magnesium Level 1.9 MG/DL 1.8 MG/DL Total Bilirubin 0.3 MG/DL 0.3 MG/DL Aspartate Amino Transf (AST/SGOT) 45 U/L 55 U/L Alanine Aminotransferase (ALT/SGPT) 30 U/L 47 U/L Alkaline Phosphatase 183 IU/L 195 IU/L Total Protein 7.0 G/DL 7.0 G/DL Albumin 1.2 G/DL 1.2 G/DL Globulin 5.8 G/DL 5.8 G/DL Albumin/Globulin Ratio 0.2 0.2 Chemistry Comments Discharge medications- Continuing home meds- Amlodipine besylate Carbamazepine Gabapentin Hydrocodone/acetaminophen Losartan Metoprolol tartrate Pantoprazole Docusate sodium capsule Discontinuing medications- Meropenem Acetaminophen 325 mg Heparin Hydralazine p.r.n. Iron sucrose IV Morphine 2 mg injection Zofran Pantoprazole 40 mg IV Ringer's solution Physical examination of the patient at the time of discharge- General: Elderly female, AAO x2, oriented to name and place, not in apparent distress Head: Normocephalic with an atraumatic Eyes: Pupils- 3mm, reacting to light, conjunctiva- anicteric Nose and throat: No polyps, septum- normal, no mucosal ulcers Neck: Supple, no lymphadenopathy, no carotid bruit Respiratory: No use of accessory muscles of respiration, Bilateral normal vesiscular breath sounds heard. No wheeze, rhochi or creps Cardiac: S1-S2 heard, rythm regular, no gallop, short systolic murmur in tricuspid area Abdomen: non distended, no tenderness, no organomegaly, bowel sounds- heard Extremities: no clubbing, no pedal edema, no deformities, peripheral pulses- 2+ Skin: warm and dry, no rash, no purpura *Problems/Diagnosis: (1) Kidney stone Status: Acute (2) MILVIA (acute kidney injury) Status: Acute (3) UTI (urinary tract infection) Status: Acute Total Time Spent on D/C: > 30 Minutes Date of Service: May 22, 2025 Billing Provider: DEDE FUENTES MD Common Visit Codes: [id number] INP/OBS CARE(HIGH) GABI PRAJAPATI, RES May 22, 2025 16:34 DEDE FUENTES MD May 22, 2025 20:00
[2025-05-22] MEDS ORDERED: JUVEN Shake w/Arg/Glut/Ca2+Bmb (Juven 19.3gm) pkt 240ml PO SCH (17:30)
== END 2025-05-22 19:20 | DRG 871 ==
LOC: ER 21:36 → ED HOLD 05-19 01:24 → PCU 3S 05-19 08:00
PROVIDERS: ADMIT Internal Medicine; ATTEND Internal Medicine
DX: A41.9 Sepsis, unspecified organism (principal); G93.41 Metabolic encephalopathy; C90.00 Multiple myeloma not having achieved remission; I50.32 Chronic diastolic (congestive) heart failure; N17.9 Acute kidney failure, unspecified; N39.0 Urinary tract infection, site not specified; I13.0 Hypertensive heart and chronic kidney disease with heart failure and stage 1 through stage 4 chronic kidney disease, or unspecified chronic kidney disease; N18.4 Chronic kidney disease, stage 4 (severe); D64.9 Anemia, unspecified; N20.0 Calculus of kidney; G50.0 Trigeminal neuralgia; E83.52 Hypercalcemia; Z90.49 Acquired absence of other specified parts of digestive tract; Z90.710 Acquired absence of both cervix and uterus; Z87.440 Personal history of urinary (tract) infections
CPT/HCPCS: 36415; 70450; 71045; 76770; 80048; 80053; 80076; 80305; 81001; 81003; 82140; 82570; 82728; 83036; 83540; 83550; 83605; 83735; 83880; 83930; 83935; 83970; 84100; 84133; 84145; 84156; 84300; 84443; 84466; 84484; 84540; 85025; 85610; 85730; 87040; 87077; 87081; 87088; 87186; 92508; 92616; 93005; 93306; 96360; 99285; A4353; A6213; G0378; J0360; J0696; J1644; J1756; J2020; J2185; J2270; J2405; J2470; J7030; J7040; J7120